=== PATIENT | male | born 1945 | race Caucasian/White ===

== ENCOUNTER 2019-10-11 12:22 | Inpatient (IN) | payer MEDICARE, SELFPAY ==
--- NOTE | ~2019-10-11 | US_ITS ---
US right upper quadrant DATE: 10/11/2019 13:55 INDICATION: Elevated liver function tests TECHNIQUE: Real-time imaging of liver, pancreas, gallbladder areas COMPARISON: 08/04/2018 abdominal ultrasound complete examination FINDINGS: The pancreatic distal body and tail are obscured by bowel gas. The pancreatic head, neck an d proximal body appear normal. Hepatic steatosis. No hepatic space-occupying mass lesion is evident. Normal hepatic portal venous fl ow direction. No gallstones or gallbladder wall thickening or abnormal pericholecystic fluid collection. Negative s onographic Stout's sign. The common bile duct measures 3 mm, normal. IMPRESSION: No significant abnormality Reviewed, dictated and finalized at [facility] Reviewed, dictated and finalized at [facility]. IMPRESSION: No significant abnormality
--- NOTE | ~2019-10-11 | CT_ITS ---
EXAMINATION: CT brain wo con DATE: 10/11/2019 13:38 INDICATION: Dizziness TECHNIQUE: Computed tomography (CT) of the head was performed without intravenous contrast. The mA wa s adjusted according to patient size. Iterative reconstruction technique was employed. Exam dose: 68 1.00 mGy-cm total exam DLP. COMPARISON: 11/05/2018 CT brain FINDINGS: No intracranial mass lesion or hemorrhage or evidence of cerebrovascular accident. Bilateral vertebral artery and carotid siphon internal carotid artery calcifications. There is mild n onspecific diminished attenuation of the cerebral white matter, likely due to chronic small vessel is chemic changes. No intracranial mass lesion or hemorrhage or cerebrovascular accident, midline shift or mass effect i s detected. No subdural or epidural hematoma. The orbits are unremarkable. No fracture or bone destruction of the cranial vault. The paranasal sinuses and mastoid air cells are normally developed and aerated. IMPRESSION: Cerebral atherosclerosis and chronic small vessel ischemic changes of the cerebral white matter No acute intracranial finding Reviewed, dictated and finalized at [facility] Reviewed, dictated and finalized at [facility].
--- NOTE | ~2019-10-11 | XR_ITS ---
XR chest 2V DATE: 10/11/2019 13:44 INDICATION: Paresis. Difficulty walking. TECHNIQUE: AP and lateral views COMPARISON: 08/01/2018 AP and lateral chest FINDINGS: Normal heart size. No hilar or mediastinal enlargement. No pulmonary infiltrate or consolidation, pleural effusion or pulmonary vascular congestion or pneumo thorax. Reverse left glenohumeral shoulder arthroplasty. Diffuse osteopenia. 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 Old healed fracture deformity of the mid right clavicular shaft. Scoliosis and degenerative spurring of the thoracic spine. There is anterior wedging and loss of heig ht of multiple thoracic vertebral bodies with associated thoracic kyphosis. IMPRESSION: No active cardiopulmonary disease Reviewed, dictated and finalized at [facility].
[2019-10-11 12:26] VITALS: BP 120/66; PULSE 108; RESP 18; TEMP 36.3; O2SAT 98
--- NOTE | 2019-10-11 12:33 | ECG_ITS ---
Measurements Intervals English Rate: 100 P: 51 RI: 159 QRS: 269 QRSD: 138 T: 31 QT: 369 QTc: 477 Interpretive Statements SINUS TACHYCARDIA VENTRICULAR PREMATURE COMPLEXES RIGHT AXIS DEVIATION RIGHT BUNDLE BRANCH BLOCK CANNOT RULE OUT SEPTAL INFARCT, AGE INDETERMINATE BASELINE ARTIFACT- I, II, AVR, AVL ABNORMAL ECG Electronically Signed On 10-11-2019 16:36:31 CDT by Mao Callejas D.O.
[2019-10-11 12:55] LABS: Basophils Percent Auto 0.3 % (0.2-1.2); Eosinophils Percent Auto 0.3 % (0-4.4); Hematocrit 42.6 % (42.0-52.0); Hemoglobin 14.3 g/dL (14.0-18.0); Immature Granulocyte Absolute 0.07 K/mm3 (0.00-0.031); Immature Granulocyte Percent A 0.5 % (0-0.5); Lymphocytes Absolute Auto 1.67 K/mm3 (0.9-3.2); Lymphocytes Percent Auto 12.3 % (18.3-44.2); Mean Corpuscular HGB Conc 33.6 g/dl (32-36); Mean Corpuscular Volume 89.3 fl (80-100); Mean Platelet Volume 10.3 fl (7.4-10.4); Monocytes Absolute Auto 1.4 K/mm3 (0.1-0.6); Monocytes Percent Auto 9.9 % (2.6-8.5); Neutrophils Absolute Auto 10.5 K/mm3 (1.3-6.7); Neutrophils Percent Auto 76.7 % (45.5-73.1); Platelet Count Result 211 k/mm3 (150-375); Red Blood Count 4.77 M/mm3 (4.6-6.20); Red Cell Distribution Width 14.2 % (11.5-14.5); White Blood Count 13.6 K/mm3 (4.5-10.0)
[2019-10-11 13:00] LABS: Add Urine Microscopic? YES; Appearance Urine Clear (Clear); Bilirubin Urine Negative (Negative); Blood Urine 2+ (Negative); Color Urine Yellow (Yellow); Glucose Urine UA Negative (Negative); Ketones Urine Negative (Negative); Leukocyte Esterase Ur Negative LEU/UL (Negative); Mucus Urine Rare /lpf; Nitrate Urine Negative (Negative); Protein Urine 2+ mg/dL (Negative); RBC Urine 0-2 /hpf (0-2); Specific Grav Ur 1.025 (1.001-1.035); Squamous Epithelial Cell Urine Rare /hpf (Few); Urobilinogen Urine Negative mg/dL (<2.0); WBC Urine 0-3 /hpf
--- NOTE | 2019-10-11 13:00 | ED.GENADULT ---
HPI - General Adult General Chief complaint: Weakness Stated complaint: Difficulty Walking Time Seen by Provider: 10/11/19 12:50 Source: RN notes reviewed History of Present Illness HPI narrative: Patient presents emergency department from home for gait instability. Patient states that starting yesterday he was having weakness in his bilateral legs. He states that with that weakness he just has general body aching throughout his body. He states that he had no trauma or injury. He denies any unilateral numbness or weakness he denies any recent illness denies any fevers or chills vision changes chest pain shortness of breath abdominal pain nausea vomiting or any other symptoms. He denies taking any new medications. Patient does state that yesterday he felt at times he perhaps had a hard time finding a word but has noted no diffuse difficulty speaking Related Data Allergies Allergy/AdvReac Type Severity Reaction Status Date / Time Sulfa (Sulfonamide Allergy Unknown Unknown Verified 10/11/19 12:46 Antibiotics) Review of Systems Review of Systems: Narrative: Gen.: Denies fevers or chills Eyes: Denies eye pain or visual change ENT: Denies congestion Respiratory: Denies shortness of breath or cough CV: Denies chest pain or palpitations GI: Denies abdominal pain nausea, emesis or diarrhea Musculoskeletal: Reports generalized muscle Neuro: Denies numbness, tingling, reports gait instability Skin: Denies rash Except as documented, all other systems reviewed and negative [facility] Past Medical History Medical History (Updated 10/11/19 @ 17:37 by Kyle Raphael DO) Hyperlipidemia Kidney stone Schizophrenia Family History Family History (Updated 03/11/18 @ 16:12 by DOCTOR UNKNOWN) Father Cerebrovascular accident Mother Family history of malignant neoplasm of bone Social History Social History Smoking status: Former smoker Smoking end date: 05/21/17 Alcohol intake: current Exam Narrative: Exam Narrative: APPEARANCE: No acute distress, nontoxic, resting in bed HEENT: Normocephalic, atraumatic, OMM, TMs clear bilaterally EYES: PERRL, EOMI NECK: Supple, nontender, full range of motion without pain, no meningismus RESPIRATORY: No respiratory distress, clear to auscultation bilaterally with no rhonchi wheezing or rales CARDIOVASCULAR: RRR s murmur ABDOMINAL: Soft, nontender, nondistended MUSCULOSKELETAL: Moves all extremities. No clubbing, cyanosis or edema. NEURO: A and O ?3, following commands, speech normal, cranial nerves II through XII grossly intact,muscle strength 5 out of 5 bilateral upper and lower extremities SKIN:: Warm, dry. Normal Color PSYCHIATRIC: Normal affect/mood Course Course Emergency Course: Reviewed old records. Patient with rhabdomyolysis and LFT elevated back in July 2018. I discussed with patient he states he has had no work-up since that time attempted to get patient up to ambulate and patient weak with ambulation unable to walk Discussed with [employer] Jenniffer for Dr. Watson presentation work-up. Agrees with admission at this time Discussed with patient and family results of workup and diagnosis. Discussed need for admission. Patient and family understand and agree to current treatment plan Vital Signs Vital signs: Vital Signs Temperature 97.4 F L 10/11/19 12:26 Pulse Rate 108 H 10/11/19 12:26 Respiratory Rate 18 10/11/19 12:26 Blood Pressure 120/66 10/11/19 12:26 Pulse Oximetry 98 10/11/19 12:26 Temperature 97.4 F L 10/11/19 12:26 Pulse Rate 94 10/11/19 16:40 Respiratory Rate 18 10/11/19 16:40 Blood Pressure 132/84 10/11/19 16:40 Pulse Oximetry 97 10/11/19 16:40 Medical Decision Making Vital Signs Vital Signs: Vital Signs Temperature 97.4 F L 10/11/19 12:26 Pulse Rate 108 H 10/11/19 12:26 Respiratory Rate 18 10/11/19 12:26 Blood Pressure 120/66 10/11/19 12:26 Pulse Oximetr
[2019-10-11 13:09] LABS: Alanine Aminotransferase 165 U/L (4-50); Albumin Level 4.3 g/dL (3.5-5.1); Alkaline Phosphatase 84 U/L (38-126); Aspartate Amino Transferase 623 U/L (17-59); Bilirubin,Total 1.3 mg/dL (0.2-1.3); Blood Urea Nitrogen 49 mg/dL (9-20); Calcium 8.9 mg/dL (8.4-10.2); Carbon Dioxide 22 mmol/L (22-30); Chloride 111 mmol/L (98-107); Estimated Glomerular Filt Rate 54; Glucose 116 mg/dL (75-110); Potassium 4.4 mmol/L (3.4-5.0); Sodium 141 mmol/L (137-145)
--- NOTE | 2019-10-11 14:20 | PC.NURSE ---
Pt unable to ambulate. EDP made aware.
[2019-10-11 14:32] LABS: Partial Thromboplastin Time 25.8 SECONDS (22.3-36.8); Prothrombin Time 12.4 Seconds (11.1-14.7)
[2019-10-11 14:41] LABS: Troponin I 0.017 ng/mL (0.000-0.034)
[2019-10-11 14:45] VITALS: BP 142/76; PULSE 84; RESP 18; O2SAT 97
[2019-10-11 15:30] LABS: Lactic Acid Reflex 1.1 mmol/L (0.7-2.1)
[2019-10-11 16:40] VITALS: BP 132/84; PULSE 94; RESP 18; O2SAT 97
[2019-10-11 16:54] LABS: Creatine Kinase > 16000 U/L (55-170)
[2019-10-11] MEDS: SODIUM CHLORIDE 0.9% IV 1,000 ML 999 ML IV CONT (17:21)
[2019-10-11 17:49] LABS: Ammonia < 9 umol/L (9-30)
--- NOTE | 2019-10-11 18:45 | ADMGEN ---
This patient, Tammie Harp, was admitted to Medical Room 246-. Patient/family oriented to hospital policies and general routines including ID bracelet, bed and alarms, visiting hours, pain management, procedures, bathroom and other care routines, personal items, smoking policy, room service/diet, and visiting hours. Valuables list has been completed. Information on how to activate the Rapid Response Team has been discussed. Patient/Family are encouraged to report perceived risks to care and to ask questions if they do not understand what they are told or what they should do.
[2019-10-11 19:00] VITALS: BP 119/79; PULSE 91; RESP 16; TEMP 36.4; O2SAT 100; BMI 29.4
[2019-10-11 20:00] VITALS: PULSE 89
[2019-10-11] MEDS: SODIUM CHLORIDE 0.9% IV 1,000 ML 150 ML IV CONT (21:24)
[2019-10-11 22:00] VITALS: BP 138/74; PULSE 86; RESP 18; TEMP 36; O2SAT 98
--- NOTE | 2019-10-11 23:39 | PM.IMHP ---
H&P: HPI History of Present Illness Chief complaint: Rhabdomyolysis, elevated, LFT's, Narrative: This is a pleasant 74 year old male who presented to the hospital with a complaint of generalized weakness and diffuse muscle pains. His legs seem to hurt more than any other part of his body. He denies any recent trauma or seizures. He also denies any long distance walking or exercise. He does agree that he has been laying around a lot but denies any falls or laying on the ground for any prolonged amount of time. The patient also denies any recent snake bites or electrocution. He was evaluated in the ER and found to have elevated LFTs and an elevated CK level of 16,000. The patient relates that he is known to have a fatty liver. He denies any alcohol use. On further questioning he denies any focal neurological symptoms, focal pain other than diffuse muscle soreness, nausea, vomiting, coughing, shortness of breath, abdominal pain, dysuria, hematuria, diarrhea or rectal bleeding. The patient denies any new medications. Gastroenterology has been consulted by ER provider and the patient has been started on IV fluids. He reports ambulatory dysfunction. Review of Systems Review of Systems: All systems reviewed & are unremarkable except as noted in HPI and below PMFSH Past Medical History Medical History Hyperlipidemia Kidney stone Proximal muscle weakness Schizophrenia Surgical History Surgical History History of left shoulder replacement Family History Family History Father Cerebrovascular accident Mother Family history of malignant neoplasm of bone Social History Social History Smoking status: Never smoker Smoking end date: 05/21/17 Alcohol intake: current Meds Home Medications and Allergies Home Medications Medication Instructions Recorded Confirmed Type nabumetone 500 mg tablet 500 mg PO BID #60 tablet 05/09/19 10/11/19 Rx pregabalin 50 mg capsule 50 mg PO BID #60 cap 05/09/19 10/11/19 Rx quetiapine 300 mg tablet 300 mg PO .QHS #90 tablet 05/09/19 10/11/19 Rx citalopram 20 mg PO DAILY 10/11/19 10/11/19 History finasteride 5 mg PO DAILY 10/11/19 10/11/19 History simvastatin 40 mg PO QPM 10/11/19 10/11/19 History temazepam [Restoril] 30 mg PO HS 10/11/19 10/11/19 History tizanidine [Zanaflex] 4 mg PO TID PRN 10/11/19 10/11/19 History Allergies Allergy/AdvReac Type Severity Reaction Status Date / Time Sulfa (Sulfonamide Allergy Unknown Unknown Verified 10/11/19 12:46 Antibiotics) Vital Signs Vital Signs - 24 hr 10/11/19 12:26 10/11/19 14:45 10/11/19 16:40 Temperature 36.3 C L Pulse Rate 108 H 84 94 Respiratory Rate 18 18 18 Blood Pressure 120/66 142/76 H 132/84 Pulse Oximetry 98 97 97 10/11/19 19:00 10/11/19 20:00 10/11/19 22:00 Temperature 36.4 C 36.0 C L Pulse Rate 91 89 86 Respiratory Rate 16 18 Blood Pressure 119/79 138/74 Pulse Oximetry 100 98 Exam Const: General: cooperative, no acute distress, alert and awake Nutritional Appearance: well nourished Orientation/consciousness: patient oriented x3 HENMT: Head: normal to inspection General nose exam: Normal external nose present Face and sinus: normal facial exam Mouth: Yes Normal oral and palatal mucosa present and Yes oropharynx normal Eyes: Pupils: Equal, round and reactive pupils present EOM: EOMs intact bilaterally Neck: Neck: supple and no JVD Thyroid: thyroid normal Lymphatic: lymphadenopathy not noted Resp: Effort & Inspection: normal respiratory effort Auscultation: clear to auscultation bilaterally Cardio: Rate: regular rate Rhythm: regular rhythm Heart sounds: no murmurs GI: Inspection: normal to inspection Auscultation: normal bowel sounds Skin: General skin exam: normal color
[2019-10-12] VITALS: PULSE 82
[2019-10-12] MEDS: polyethylene glycoL 3350 17 GM POWD.PACK PO ×2 (00:05→10:15)
[2019-10-12 04:00] VITALS: PULSE 82
[2019-10-12] MEDS: SODIUM CHLORIDE 0.9% IV 1,000 ML 150 ML IV CONT ×3 (04:13→22:40)
[2019-10-12 05:24] LABS: Basophils Absolute Auto 0.1 K/mm3 (0.0-0.1); Basophils Percent Auto 0.4 % (0.2-1.2); Eosinophils Absolute Auto 0.2 K/mm3 (0-0.3); Eosinophils Percent Auto 1.4 % (0-4.4); Hematocrit 38.2 % (42.0-52.0); Hemoglobin 12.6 g/dL (14.0-18.0); Immature Granulocyte Absolute 0.04 K/mm3 (0.00-0.031); Immature Granulocyte Percent A 0.3 % (0-0.5); Lymphocytes Absolute Auto 1.84 K/mm3 (0.9-3.2); Mean Platelet Volume 10.6 fl (7.4-10.4); Monocytes Absolute Auto 1.1 K/mm3 (0.1-0.6); Monocytes Percent Auto 9.3 % (2.6-8.5); Neutrophils Absolute Auto 8.4 K/mm3 (1.3-6.7); Neutrophils Percent Auto 72.6 % (45.5-73.1); Platelet Count Result 182 k/mm3 (150-375); Red Cell Distribution Width 14.5 % (11.5-14.5); White Blood Count 11.5 K/mm3 (4.5-10.0)
[2019-10-12 05:40] LABS: Alanine Aminotransferase 128 U/L (4-50); Albumin Level 3.3 g/dL (3.5-5.1); Alkaline Phosphatase 67 U/L (38-126); Aspartate Amino Transferase 347 U/L (17-59); Blood Urea Nitrogen 38 mg/dL (9-20); Carbon Dioxide 25 mmol/L (22-30); Chloride 112 mmol/L (98-107); Estimated CRCL calculation 49 ml/min; Estimated Glomerular Filt Rate > 60; Glucose 95 mg/dL (75-110); Potassium 3.9 mmol/L (3.4-5.0); Sodium 139 mmol/L (137-145)
[2019-10-12 06:00] VITALS: BP 112/64; PULSE 81; RESP 18; TEMP 36.1; O2SAT 95
[2019-10-12 06:33] LABS: Creatine Kinase 6776 U/L (55-170)
[2019-10-12 08:00] VITALS: PULSE 92
--- NOTE | 2019-10-12 09:50 | PM.IMPN ---
Progress Note: A&P Assessment and Plan (1) Rhabdomyolysis: Qualifiers: Rhabdomyolysis type: non-traumatic Qualified Code(s): M62.82 - Rhabdomyolysis Code(s): M62.82 - Rhabdomyolysis Status: Acute Assessment and Plan: The patient has a hx of rhabdomyolysis in 07/2018 and 02/2016. He had no hx of trauma, toxin exposures, or prolonged immobility. He reports he has not consumed alcohol recently. I suspect this may be drug induced as he is on multiple medications which can cause this including temazepam, seroquel, and simvastatin which are on hold at this time. CK was elevated 16,000 and is now 6776 today. His myalgias and generalized weakness are improving. Contine IV fluids HOLD temazepam, seroquel, simvastatin Continue to monitor CK and electrolytes. Will check TSH. (2) Elevated liver enzymes: Code(s): R74.8 - Abnormal levels of other serum enzymes Status: Acute Assessment and Plan: LFTs were AST 623, ALT 165, and ALP 84 at admission. LFTs are trending down with AST 347, ALT 128, and ALP 67 on labs today (10/11). I suspect that this is due to his rhabdomyolysis/potential ADR from temazepam, seroquel, and simvastatin. RUQ US revealed hepatic steatosis with no hepatic space-occupying mass lesion, normal hepatic portal venous flow direction, and no evidence of gallbladder disease. He has a hx of alcohol use but reports he has not consumed alcohol in the past month. GI is on board and further recommendations are greatly appreciated Hold temazepam, seroquel and simvastatin Continue to monitor (3) Gait instability: Code(s): R26.81 - Unsteadiness on feet Status: Acute Assessment and Plan: He reported difficulty ambulating yesterday due to his generalized weakness and calf discomfort. He does believe this is improving. I suspect that this is due his rhabdomyolysis. PT/OT have been consulted and input is greatly appreciated Continue to monitor (4) Schizophrenia: Qualifiers: Schizophrenia type: unspecified Qualified Code(s): F20.9 - Schizophrenia, unspecified Code(s): F20.9 - Schizophrenia, unspecified Status: Chronic Assessment and Plan: Stable. Hold seroquel for now as this can cause rhabdomyolysis and LFT elevation Continue to monitor (5) Hyperlipidemia: Qualifiers: Hyperlipidemia type: unspecified Qualified Code(s): E78.5 - Hyperlipidemia, unspecified Code(s): E78.5 - Hyperlipidemia, unspecified Status: Chronic Assessment and Plan: Hold Simvastatin as this may be the cause of his elevated LFTs and rhabdomyolysis Will hold at discharge with instructions to follow-up with his PCP (6) DVT prophylaxis: Code(s): Z29.9 - Encounter for prophylactic measures, unspecified Status: Acute Assessment and Plan: Continue lovenox SQ. Time Spent With Patient Time with patient: 15 - 25 minutes Subjective Date/time seen: 10/12/19 09:50 Interval history: Mr. Harp is a 74 y.o. male who is seen in follow-up for rhabdomyolysis. He reported feeling generalized muscle aches, particularly in his calves, prior to admission. He denies any recent trauma or prolonged period on the ground. He denies excessive exercise. He has a hx of rhabdomyolysis in 07/2018 and 02/2016 on review of prior records. Today, he reports that his calf discomfort has improved. He has not tried to ambulate yet. He denies chest pain and shortness of breath. He reports that he fees constipated and has not had a bowel movement since 10/10/19. He reports a hx of constipation and does use a bowel regimen at home. He is requesting miralax. He denies nausea and vomiting. He reports very mild abdominal discomfort with his constipation. He denies dizziness, lightheadedness, and focal weakness. He is voiding without difficulty and his appetite is good. Review of Systems Review of Systems: All s
[2019-10-12] MEDS: CITALOPRAM HYDROBROMIDE 20 MG TABLET PO (10:05)
[2019-10-12] MEDS: ENOXAPARIN 40 MG/0.4 ML SYRINGE SUB-Q (10:05)
[2019-10-12] MEDS: FINASTERIDE 5 MG TABLET PO (10:05)
[2019-10-12] MEDS: DOCUSATE SODIUM 100 MG CAPSULE PO ×2 (10:05→20:42)
--- NOTE | 2019-10-12 13:09 | WPDGICN ---
Assessment and Plan Assessment and plan (1) Rhabdomyolysis: Qualifiers: Rhabdomyolysis type: non-traumatic Qualified Code(s): M62.82 - Rhabdomyolysis Code(s): M62.82 - Rhabdomyolysis Status: Acute Assessment and Plan: he is here with proximal muscle weakness and found to have rhabdomyolysis but also similar abnormal blood work 07/2018. This is not liver related (transaminases elevated most likely from underlying rhabdomyolysis) he had negative hepatitis panel, abdominal ultrasound, inr and platelets. differential diagnosis could be meds- discontinue statin but given chronicity of abnormal blood work need to rule out other conditions (polyomyositis, etc)- will get blood work (sasha, esr, anti-anaid, tsh, aldolase, ANESTHESIOLOGY MEDICAL DOCTOR, etc) probably will need EMG with evaluation by neuromuscular specialist no need of further liver work up for now (he also has fatty liver but unlikely to explain symptoms)- can repeat liver enzymes when normal CPK to reassess (2) Elevated liver enzymes: Code(s): R74.8 - Abnormal levels of other serum enzymes Status: Acute (3) Proximal muscle weakness: Code(s): M62.81 - Muscle weakness (generalized) Status: Acute Assessment and Plan: with elevated cpk, monitor (4) Gait instability: Code(s): R26.81 - Unsteadiness on feet Status: Acute GI Consult Note Consult date/time: 10/12/19 13:09 Reason for consult: elevated liver enzymes HPI: Tammie Harp is a 74 year old male here with new onset of generalized weakness and diffuse muscle pain started just few days ago with more discomfort in his legs with subsequent gait instability. He denies any recent trauma, seizures, exercise or use of recent meds however he uses statin. He came to the ER and found to have elevated LFTs (ast 600, alt 150) and an elevated CK level of 16,000 but also noted similar abnormal blood work 07/2018 (elevated CK). He is admitted to the floor, abdominal utrasound was unremarkable other than fatty liver. Normal lactic acid, platelets, inr, bili, creatinine. Weakness is better today. Denies abdominal pain or nausea. Review of Systems Constitutional: Constitutional: Reports body ache(s), Denies headache(s) and Reports weakness Eyes: Eyes: Denies blurry vision ENT: Reports Normal hearing present, Denies headache(s) and Denies neck pain Cardiovascular: Cardiovascular: Denies chest pain and Denies dyspnea Respiratory: Respiratory: Denies dyspnea Gastrointestinal: Gastrointestinal: Reports no additional gastrointestinal complaints Genitourinary: Genitourinary: Denies dysuria Musculoskeletal: Musculoskeletal: Reports muscle weakness Integumentary/Breasts: Skin/Breast: Denies dry skin Neurologic: Reports Normal hearing present, Denies headache(s) and Denies weakness Psychiatric: Psychiatric: Denies anxiety Endocrine: Endocrine: Denies change in body appearance Hematologic/Lymphatic: Hematologic/Lymphatic: Denies easy bleeding Allergic/Immunologic: Allergic/Immunologic: Denies urticaria PMFSH Past Medical History Medical History Hyperlipidemia Kidney stone Schizophrenia Surgical History Surgical History History of left shoulder replacement Family History Family History Father Cerebrovascular accident Mother Family history of malignant neoplasm of bone Social History Social History Smoking status: Never smoker Smoking end date: 05/21/17 Alcohol intake: current Meds Home Medications and Allergies Home Medications Medication Instructions Recorded Confirmed Type nabumetone 500 mg tablet 500 mg PO BID #60 tablet 05/09/19 10/11/19 Rx pregabalin 50 mg capsule 50 mg PO BID #60 cap 05/09/19 10/11/19 Rx quetiapine 300 mg tablet 300 mg PO .QH
[2019-10-12 14:00] VITALS: BP 114/76; PULSE 87; RESP 16; TEMP 36.6; O2SAT 99
[2019-10-12 22:00] VITALS: BP 119/65; PULSE 82; RESP 16; TEMP 36.6; O2SAT 97
[2019-10-13 00:10] VITALS: BP 125/84
[2019-10-13 06:00] VITALS: BP 124/73; PULSE 91; RESP 16; TEMP 36.7; O2SAT 97
[2019-10-13] MEDS: SODIUM CHLORIDE 0.9% IV 1,000 ML 150 ML IV CONT (07:00)
[2019-10-13 07:50] LABS: Hematocrit 38.5 % (42.0-52.0); Hemoglobin 12.6 g/dL (14.0-18.0); Mean Corpuscular HGB Conc 32.7 g/dl (32-36); Mean Corpuscular Hemoglobin 30.1 pg (26-34); Mean Corpuscular Volume 91.9 fl (80-100); Mean Platelet Volume 10.8 fl (7.4-10.4); Platelet Count Result 173 k/mm3 (150-375); Red Blood Count 4.19 M/mm3 (4.6-6.20); Red Cell Distribution Width 13.9 % (11.5-14.5); White Blood Count 9.6 K/mm3 (4.5-10.0)
[2019-10-13 08:13] LABS: Erythrocyte Sedimentation Rate 21 mm/hr (0-20)
[2019-10-13 08:30] LABS: Alanine Aminotransferase 125 U/L (4-50); Albumin Level 3.2 g/dL (3.5-5.1); Alkaline Phosphatase 70 U/L (38-126); Aspartate Amino Transferase 212 U/L (17-59); Bilirubin,Total 0.7 mg/dL (0.2-1.3); Blood Urea Nitrogen 22 mg/dL (9-20); Carbon Dioxide 24 mmol/L (22-30); Chloride 110 mmol/L (98-107); Creatine Kinase 2478 U/L (55-170); Estimated CRCL calculation 59 ml/min; Estimated Glomerular Filt Rate > 60; Glucose 94 mg/dL (75-110); Magnesium 2.1 mg/dL (1.6-2.3); Phosphorus 2.7 mg/dL (2.5-4.5); Sodium 137 mmol/L (137-145)
[2019-10-13] MEDS: polyethylene glycoL 3350 17 GM POWD.PACK PO (09:28)
[2019-10-13] MEDS: DOCUSATE SODIUM 100 MG CAPSULE PO ×2 (09:28→22:03)
[2019-10-13] MEDS: CITALOPRAM HYDROBROMIDE 20 MG TABLET PO (09:28)
[2019-10-13] MEDS: ENOXAPARIN 40 MG/0.4 ML SYRINGE SUB-Q (09:28)
[2019-10-13] MEDS: FINASTERIDE 5 MG TABLET PO (09:28)
--- NOTE | 2019-10-13 11:26 | PM.IMPN ---
Progress Note: A&P Assessment and Plan (1) Rhabdomyolysis: Qualifiers: Rhabdomyolysis type: non-traumatic Qualified Code(s): M62.82 - Rhabdomyolysis Code(s): M62.82 - Rhabdomyolysis Status: Acute Assessment and Plan: The patient has a hx of rhabdomyolysis in 07/2018 and 02/2016. He had no hx of trauma, toxin exposures, or prolonged immobility. He reports he has not consumed alcohol recently. I suspect this may be drug induced as he is on multiple medications which can cause this including temazepam, seroquel, and simvastatin which are on hold at this time. CK was elevated 16,000 and continues to trend down at 2,478 today. TSH was WNL. Additional workup for other etiologies including ASA, ESR, anti-anaid, aldolase, UNDERGROUND ELECTRICIAN are pending. Contine IV fluids Hold seroquel, simvastatin, and nambumetone Await further workup for other etiologies of rhabdomyolysis, GI recommendations greatly appreciated Continue to monitor CK and electrolytes (2) Elevated liver enzymes: Code(s): R74.8 - Abnormal levels of other serum enzymes Status: Acute Assessment and Plan: LFTs were AST 623, ALT 165, and ALP 84 at admission. LFTs are trending down with AST 212, ALT 125, and ALP 70 on labs 10/12 (10/11). I suspect that this is due to his rhabdomyolysis/potential ADR from temazepam, seroquel, and simvastatin. RUQ US revealed hepatic steatosis with no hepatic space-occupying mass lesion, normal hepatic portal venous flow direction, and no evidence of gallbladder disease. He has a hx of alcohol use but reports he has not consumed alcohol in the past month. He also reports a hx of fatty liver disease. GI is on board and further recommendations are greatly appreciated Hold simvastatin and seroquel. Will resume temazepam as he is having difficulty sleeping and is requesting this. Continue to monitor (3) Gait instability: Code(s): R26.81 - Unsteadiness on feet Status: Acute Assessment and Plan: He reports he was able to walk with PT/OT without significant weakness or pain today. PT/OT have been consulted and input is greatly appreciated Continue to monitor (4) Schizophrenia: Qualifiers: Schizophrenia type: unspecified Qualified Code(s): F20.9 - Schizophrenia, unspecified Code(s): F20.9 - Schizophrenia, unspecified Status: Chronic Assessment and Plan: Stable. Hold seroquel for now as this can cause rhabdomyolysis and LFT elevation Continue to monitor (5) Hyperlipidemia: Qualifiers: Hyperlipidemia type: unspecified Qualified Code(s): E78.5 - Hyperlipidemia, unspecified Code(s): E78.5 - Hyperlipidemia, unspecified Status: Chronic Assessment and Plan: Hold Simvastatin as this may be the cause of his elevated LFTs and rhabdomyolysis Will hold at discharge with instructions to follow-up with his PCP (6) DVT prophylaxis: Code(s): Z29.9 - Encounter for prophylactic measures, unspecified Status: Acute Assessment and Plan: Continue lovenox SQ. Subjective Date/time seen: 10/13/19 11:26 Interval history: Mr. Harp is a 74 y.o. male who is seen in follow-up for rabdomyolysis. He reports that his myalgias continue to improve. He reports chronic low back discomfort as his nambumetone is on hold and he did not sleep very well since his temazepam is on hold due to transaminitis. He is tolerating his diet well. He reports a bowel movement today and has no complaints of constipation or diarrhea. He ambulated with PT and reports that his lower extremity discomfort is much better. He denies chest pain, shortness of breath, palpitations, nausea, vomiting, and adbominal pain. Review of Systems Review of Systems: All systems reviewed & are unremarkable except as noted in HPI and below Exam Narrative: Exam Narrative: General: Cooperative, well-developed and well-nourished 74
[2019-10-13 13:37] VITALS: BP 141/76; PULSE 82; RESP 18; TEMP 36.1; O2SAT 98
[2019-10-13] MEDS: SODIUM CHLORIDE 0.9% IV 1,000 ML 100 ML IV CONT (14:10)
[2019-10-13] MEDS: PREGABALIN 50 MG CAPSULE PO (16:27)
[2019-10-13 21:59] VITALS: BP 139/73; PULSE 93; RESP 16; TEMP 36.3; O2SAT 97
[2019-10-13] MEDS: TEMAZEPAM 15 MG CAPSULE 30 MG PO (22:02)
[2019-10-14] MEDS: SODIUM CHLORIDE 0.9% IV 1,000 ML 100 ML IV CONT ×2 (00:51→11:05)
[2019-10-14 05:24] LABS: Hematocrit 40.8 % (42.0-52.0); Hemoglobin 13.1 g/dL (14.0-18.0); Mean Corpuscular HGB Conc 32.1 g/dl (32-36); Mean Corpuscular Hemoglobin 29.7 pg (26-34); Mean Corpuscular Volume 92.5 fl (80-100); Mean Platelet Volume 10.7 fl (7.4-10.4); Platelet Count Result 188 k/mm3 (150-375); Red Blood Count 4.41 M/mm3 (4.6-6.20); Red Cell Distribution Width 13.8 % (11.5-14.5); White Blood Count 8.6 K/mm3 (4.5-10.0)
[2019-10-14 05:36] LABS: Alanine Aminotransferase 111 U/L (4-50); Albumin Level 3.4 g/dL (3.5-5.1); Alkaline Phosphatase 70 U/L (38-126); Aspartate Amino Transferase 132 U/L (17-59); Bilirubin,Total 0.4 mg/dL (0.2-1.3); Blood Urea Nitrogen 18 mg/dL (9-20); Calcium 8.2 mg/dL (8.4-10.2); Carbon Dioxide 29 mmol/L (22-30); Chloride 107 mmol/L (98-107); Creatine Kinase 975 U/L (55-170); Estimated CRCL calculation 59 ml/min; Estimated Glomerular Filt Rate > 60; Glucose 92 mg/dL (75-110); Potassium 4.3 mmol/L (3.4-5.0); Sodium 138 mmol/L (137-145)
[2019-10-14 05:57] VITALS: BP 134/76; PULSE 76; RESP 16; TEMP 36.2; O2SAT 95
[2019-10-14] MEDS: CITALOPRAM HYDROBROMIDE 20 MG TABLET PO (08:24)
[2019-10-14] MEDS: DOCUSATE SODIUM 100 MG CAPSULE PO ×2 (08:24→20:17)
[2019-10-14] MEDS: polyethylene glycoL 3350 17 GM POWD.PACK PO (08:25)
[2019-10-14] MEDS: PREGABALIN 50 MG CAPSULE PO ×2 (08:25→17:45)
[2019-10-14] MEDS: ENOXAPARIN 40 MG/0.4 ML SYRINGE SUB-Q (08:25)
[2019-10-14] MEDS: FINASTERIDE 5 MG TABLET PO (08:25)
[2019-10-14] MEDS: ACETAMINOPHEN 325 MG TABLET 650 MG PO (08:33)
[2019-10-14 13:39] VITALS: BP 141/88; PULSE 80; RESP 18; TEMP 36.2; O2SAT 99
--- NOTE | 2019-10-14 15:50 | PCOTNOTE ---
The OT treatment was unable to be completed on 10/14/2019. Will continue plan of care tomorrow 10/15/2019.
--- NOTE | 2019-10-14 16:27 | PM.IMPN ---
Progress Note: A&P Assessment and Plan (1) Rhabdomyolysis: Qualifiers: Rhabdomyolysis type: non-traumatic Qualified Code(s): M62.82 - Rhabdomyolysis Code(s): M62.82 - Rhabdomyolysis Status: Acute Assessment and Plan: The patient has a hx of rhabdomyolysis in 07/2018 and 02/2016. He had no hx of trauma, toxin exposures, or prolonged immobility. He reports he has not consumed alcohol recently. I suspect this may be drug induced as he is on multiple medications which can cause this including temazepam, seroquel, and simvastatin which are on hold at this time. CK was elevated 16,000 and continues to trend down at 975 today. TSH was WNL. Urine output is good. Additional workup for other etiologies including ANKIT, anti-anaid, aldolase, [employer] are pending. GI is on board and input is appreciated Continue IV fluids Hold seroquel, simvastatin, and nambumetone Await further workup for other etiologies of rhabdomyolysis which are pending. Continue to monitor CK and electrolytes (2) Elevated liver enzymes: Code(s): R74.8 - Abnormal levels of other serum enzymes Status: Acute Assessment and Plan: LFTs were elevated at admission, possibly due to underlying rhabdomyolysis. RUQ US revealed hepatic steatosis with no hepatic space-occupying mass lesion, normal hepatic portal venous flow direction, and no evidence of gallbladder disease. He has a hx of alcohol use but reports he has not consumed alcohol in the past month. He also reports a hx of fatty liver disease. INR and platelets are wnl. Continue to hold simvastatin and seroquel Continue to monitor (3) Gait instability: Code(s): R26.81 - Unsteadiness on feet Status: Acute Assessment and Plan: Patient presented with muscle weakness and low back pain which appear to have both modestly improved. Continue PT/OT. Input is appreciated for discharge planning as patient lives alone. Patient will benefit from home health Continue to monitor. (4) Schizophrenia: Qualifiers: Schizophrenia type: unspecified Qualified Code(s): F20.9 - Schizophrenia, unspecified Code(s): F20.9 - Schizophrenia, unspecified Status: Chronic Assessment and Plan: Stable. Hold seroquel for now as this can cause rhabdomyolysis and LFT elevation Continue to monitor (5) Hyperlipidemia: Qualifiers: Hyperlipidemia type: unspecified Qualified Code(s): E78.5 - Hyperlipidemia, unspecified Code(s): E78.5 - Hyperlipidemia, unspecified Status: Chronic Assessment and Plan: Hold Simvastatin as this may be the cause of his elevated LFTs as well as his cause of his rhabdomyolysis. Subjective Date/time seen: 10/14/19 16:27 Interval history: Date of service: 10/14/2019 Mr. Harp reports he is feeling well today. He complains of low back pain which he believes is exacerbated by laying in bed. He has been ambulating around the room and working with physical therapy. He has a headache today but notes it has improved from yesterday. He endorses mild abdominal discomfort. He denies N/V/D. He had a regular bowel movement this morning and he is urinating regularly. He denies cough, chest pain, dizziness, lightheadedness, or palpitations. His appetite is good. He slept well last night. Review of Systems Review of Systems: Narrative: A 12 point review of systems was reviewed with pertinent positives and negatives as per HPI. Exam Narrative: Exam Narrative: Mr. Harp is examined alone today. He is a well nourised 74 year old male who is sitting in a chair by the bedside. He appears comfortable and is in NARD. HR 76, BP 134/76, RR 16, T 97.2, 95% on room air Neuro: awake, alert and oriented x4, speech clear, no focal neuro deficits noted, strength 5/5 throughout HEENMT: normocephalic, atraumatic, EOMI, sclerae anicteric, moist oral mucosa, normal oropharynx Neck: supple
[2019-10-14 22:00] VITALS: BP 124/69; PULSE 78; RESP 20; TEMP 37.3; O2SAT 97
[2019-10-14] MEDS: TEMAZEPAM 15 MG CAPSULE 30 MG PO (22:08)
[2019-10-14] MEDS: SODIUM CHLORIDE 0.9% IV 1,000 ML 80 ML IV CONT (22:08)
[2019-10-15 05:47] LABS: Alanine Aminotransferase 90 U/L (4-50); Albumin Level 3.1 g/dL (3.5-5.1); Alkaline Phosphatase 66 U/L (38-126); Aspartate Amino Transferase 74 U/L (17-59); Bilirubin,Total 0.3 mg/dL (0.2-1.3); Blood Urea Nitrogen 20 mg/dL (9-20); Calcium 8.3 mg/dL (8.4-10.2); Carbon Dioxide 29 mmol/L (22-30); Chloride 106 mmol/L (98-107); Creatine Kinase 455 U/L (55-170); Estimated CRCL calculation 59 ml/min; Estimated Glomerular Filt Rate > 60; Glucose 92 mg/dL (75-110); Potassium 4.1 mmol/L (3.4-5.0); Sodium 139 mmol/L (137-145)
[2019-10-15 06:00] VITALS: BP 110/55; PULSE 61; RESP 18; TEMP 36.1; O2SAT 98
[2019-10-15 06:01] LABS: Basophils Absolute Auto 0.1 K/mm3 (0.0-0.1); Basophils Percent Auto 0.7 % (0.2-1.2); Eosinophils Absolute Auto 0.4 K/mm3 (0-0.3); Eosinophils Percent Auto 4.9 % (0-4.4); Hematocrit 39.2 % (42.0-52.0); Hemoglobin 12.6 g/dL (14.0-18.0); Immature Granulocyte Absolute 0.15 K/mm3 (0.00-0.031); Immature Granulocyte Percent A 1.7 % (0-0.5); Lymphocytes Absolute Auto 1.84 K/mm3 (0.9-3.2); Lymphocytes Percent Auto 20.6 % (18.3-44.2); Mean Corpuscular HGB Conc 32.1 g/dl (32-36); Mean Corpuscular Hemoglobin 29.8 pg (26-34); Mean Corpuscular Volume 92.7 fl (80-100); Mean Platelet Volume 10.9 fl (7.4-10.4); Monocytes Absolute Auto 0.9 K/mm3 (0.1-0.6); Monocytes Percent Auto 9.8 % (2.6-8.5); Neutrophils Absolute Auto 5.6 K/mm3 (1.3-6.7); Neutrophils Percent Auto 62.3 % (45.5-73.1); Platelet Count Result 191 k/mm3 (150-375); Red Blood Count 4.23 M/mm3 (4.6-6.20)
[2019-10-15] MEDS: SODIUM CHLORIDE 0.9% IV 1,000 ML 80 ML IV CONT (08:46)
[2019-10-15] MEDS: ENOXAPARIN 40 MG/0.4 ML SYRINGE SUB-Q (08:46)
[2019-10-15] MEDS: DOCUSATE SODIUM 100 MG CAPSULE PO (08:46)
[2019-10-15] MEDS: FINASTERIDE 5 MG TABLET PO (08:47)
[2019-10-15] MEDS: CITALOPRAM HYDROBROMIDE 20 MG TABLET PO (08:47)
[2019-10-15] MEDS: PREGABALIN 50 MG CAPSULE PO (08:51)
[2019-10-15] MEDS: polyethylene glycoL 3350 17 GM POWD.PACK PO (09:08)
[2019-10-15] MEDS: ACETAMINOPHEN 325 MG TABLET 650 MG PO (09:08)
[2019-10-15 11:48] LABS: Aldolase 16.5 U/L (<=8.1)
--- NOTE | 2019-10-15 15:51 | PC.NURSE ---
Addendum entered by Tanya Nicolas RN 10/15/19 15:59: talita contacted desk stating pt can follow up in four weeks Original Note: Notified Joshua of discharge. no further follow up suggested.
--- NOTE | 2019-10-15 16:36 | PM.DS ---
DS: Admitting Diagnosis Admitting Diagnosis Admitting Diagnosis: Rhabdomyolysis DS: Discharge Diagnosis Discharge Diagnosis (1) Rhabdomyolysis: Qualifiers: Rhabdomyolysis type: non-traumatic Qualified Code(s): M62.82 - Rhabdomyolysis Code(s): M62.82 - Rhabdomyolysis Status: Acute Assessment and Plan: Patient presented with muscle weakness. He had no hx of trauma, toxin exposures, or prolonged immobility. He reports he has not consumed alcohol recently. He reports a distant history of 2 prior episodes of rhabdomyolysis. I suspect this episode was most likely due to statin use. His CK improved from 6776 to 455 at time of discharge. He will hold statin until follow-up with PCP. (2) Elevated liver enzymes: Code(s): R74.8 - Abnormal levels of other serum enzymes Status: Acute Assessment and Plan: LFTs were elevated at admission, most likely due to underlying rhabdomyolysis. RUQ US revealed hepatic steatosis with no hepatic space-occupying mass lesion, normal hepatic portal venous flow direction, and no evidence of gallbladder disease. His statin drug was held. Liver enzymes had significantly improved at time of discharge. (3) Gait instability: Code(s): R26.81 - Unsteadiness on feet Status: Acute Assessment and Plan: Patient presented with muscle weakness causing instability. I suspect this muscle weakness was related to his rhabdomyolysis. He was evaluated by PT and OT. He declined home health. He will continue using a walker at home. He was educated on fall precautions. (4) Schizophrenia: Qualifiers: Schizophrenia type: unspecified Qualified Code(s): F20.9 - Schizophrenia, unspecified Code(s): F20.9 - Schizophrenia, unspecified Status: Chronic Assessment and Plan: He will continue taking Seroquel. (5) Hyperlipidemia: Qualifiers: Hyperlipidemia type: unspecified Qualified Code(s): E78.5 - Hyperlipidemia, unspecified Code(s): E78.5 - Hyperlipidemia, unspecified Status: Chronic Assessment and Plan: His simvastatin will be held until follow-up with PCP given rhabdomyolysis. He may benefit from monthly Repatha injections in order to avoid further statin use to prevent rhabdomyolysis from reccurring. DS: Summary Hospital Course Reason for hospitalization: Weakness Hospital Course: Date of Admission: 10/11/2019 Date of discharge: 10/15/2019 Tammie Harp is a 74-year-old male who lives at home alone with a past medical history significant for hyperlipidemia and schizophrenia who presented to the emergency department on 10/11/2019 with complaints of muscle weakness which was most significant in his legs. He had no fall, injury, or trauma. At presentation, WBC 13.6, Hgb 14.3, Hct 42.6, platelets 211, Na 141, K 4.4, Cl 111, CO2 22, BUN 49, Cr 1.3, glucose 116, troponin 0.017, CK >48545, AST 623, ALT 165, ALP 84, lactic 1.1. He was admitted to the hospitalist service for treatment of rhabdomyolysis on 10/11/2019. He was seen in consultation by software writer Dr. Suh. He was given IV fluids. His CK trended down well. His rhabdomyolysis was felt to be related to statin use. Dr. Suh completed a workup for additional etiologies including polymyositis or additional rheumatologic disorders. ESR was very mildly elevated at 21. Aldolase was elevated at 16.5, suggesting muscle damage most likely related to rhabdomyolysis. ANKIT, anti Emmy, and CASE MAKER are still pending at time of discharge. He will need to follow-up as an outpatient to review these labs. He will discontinue his statin until he is seen by his primary care provider. Given his weakness, he was evaluated by PT and OT. He was able to ambulate well without additional assistance. He did qualify for home health, however he denied. He will continue using his walker at home and we discussed fall precautions. He has a
[2019-10-16 09:55] LABS: JO 1 Antibody <1.0; RNP Antibodies <1.0
== END 2019-10-15 16:38 | disposition home or self-care (01) | DRG 558 ==
LOC: ANHED 17:42 → ANH2MED 18:15
PROVIDERS: Family Medicine; Internal Medicine Gastroenterology; Physician Assistant; Admitting Provider Internal Medicine; Emergency Provider Emergency Medicine; PCP Student in an Organized Health Care Education/Training Program; Visit Provider Physician Assistant
DX: M62.82 Rhabdomyolysis (principal); T46.6X5A Adverse effect of antihyperlipidemic and antiarteriosclerotic drugs, initial encounter; R74.8 Abnormal levels of other serum enzymes; R26.81 Unsteadiness on feet; F20.9 Schizophrenia, unspecified; E78.5 Hyperlipidemia, unspecified; Z79.899 Other long term (current) drug therapy; Z87.442 Personal history of urinary calculi; Z88.2 Allergy status to sulfonamides
CPT/HCPCS: 36415; 70450; 71046; 76705; 80053; 81001; 82085; 82140; 82550; 83605; 83735; 84100; 84443; 84484; 85025; 85027; 85610; 85652; 85730; 86038; 86235; 87040; 93005; 97110; 97116; 97161; 97165; 97530; 97535; 99285; A9270; J1650; J7030

== ENCOUNTER 2019-10-31 09:11 | Inpatient (IN) | payer MEDICARE, SELFPAY ==
[2019-10-31] VITALS (12 sets, daily range): BP systolic 105–166; BP diastolic 70–124; PULSE 87–116; RESP 15–24; TEMP 36.3–36.5; O2SAT 94–99
--- NOTE | ~2019-10-31 | XR_ITS ---
EXAMINATION: XR abdomen obstructive series DATE: 10/31/2019 11:06 INDICATION: Abdominal pain. Constipation. TECHNIQUE: Upright and supine views of the abdomen on 3 radiographs were obtained. COMPARISON: Abdomen radiographs 03/10/2016, CT abdomen 02/06/2006 FINDINGS: There are multiple dilated loops of small bowel. There is a large volume of stool in the co kamryn. No free intraperitoneal gas. There is a chronic calcified mass in left abdomen that is part of t he left kidney on the prior CT, likely benign. There is a total left hip arthroplasty. IMPRESSION: 1. Dilated small bowel, consistent with adynamic ileus versus bowel obstruction. Reviewed, dictated and finalized at location E. IMPRESSION: 1. Dilated small bowel, consistent with adynamic ileus versus bowel obstruction .
--- NOTE | ~2019-10-31 | XR_ITS ---
EXAMINATION: XR abdomen NG/feed tube rechec DATE: 10/31/2019 17:06 INDICATION: Nasogastric tube placement. TECHNIQUE: An upright view of the abdomen was obtained. COMPARISON: Abdomen single view at 3:00 PM FINDINGS: The lower abdomen and right lateral aspect of the abdomen are excluded. There are no visual ized dilated loops of bowel. The nasogastric tube tip is in the stomach. IMPRESSION: 1. Nasogastric tube tip in the stomach. Reviewed, dictated and finalized at location A.
--- NOTE | ~2019-10-31 | XR_ITS ---
EXAMINATION: XR small bowel follow through DATE: 11/01/2019 15:43 INDICATION: Small bowel stricture. TECHNIQUE: Oral contrast was administered, and a time course of radiographs of the abdomen was obtain ed. Fluoroscopy of the small bowel was performed. Fluoroscopy exposure time was 2.3 minutes. The tota l number of images was 20. COMPARISON: CT abdomen and pelvis 10/31/2019 FINDINGS: There are mildly dilated loops of small bowel in left abdomen. Transit time from the stomach to proxi mal colon was approximately 30 minutes. IMPRESSION: 1. Mildly dilated small bowel in left abdomen. The focal transition point seen by CT was not identifi ed. Consider CT enterography with intravenous contrast either now or in a few weeks to exclude malign keven. Reviewed, dictated and finalized at location A. IMPRESSION: 1. Mildly dilated small bowel in left abdomen. The focal transition point seen by CT was not identified. Consider CT enterography with intravenous contrast ei ther now or in a few weeks to exclude malignancy.
--- NOTE | ~2019-10-31 | CT_ITS ---
EXAMINATION: CT abdomen pelvis w con DATE: 10/31/2019 12:57 INDICATION: Abdominal pain. TECHNIQUE: Computed tomography (CT) of the abdomen and pelvis was performed with 100 mL Omnipaque 350 intravenous contrast. Automated exposure control and iterative reconstruction technique were employe d. The dose-length product was 788.52 mGy-cm. COMPARISON: None. FINDINGS: The visualized portions of the lung bases demonstrate mild atelectasis. No pleural effusion . The heart size is normal. There are coronary artery calcifications. No pericardial effusion. The li boris, gallbladder, spleen, pancreas, and adrenal glands are normal. There are cysts in right kidney me asuring up to 2.0 cm. There is severe atrophy of left kidney. There are parenchymal calcifications in left kidney. There is a chronic 2.6 cm rim calcified mass in left kidney, likely benign. The rectum is distended by stool. There is diverticulosis of the colon without evidence of diverticulitis. There is a large volume of stool in the colon. The appendix is not visualized. There is dilated small carlene l in left abdomen with a focal transition point where there is wall thickening. There are no patholog ically enlarged lymph nodes. There is no free intraperitoneal fluid. There is a left hip arthroplasty . There is severe thoracolumbar spondylosis. There is chronic height loss of multiple thoracic verteb ral bodies. IMPRESSION: 1. Dilated proximal small bowel with focal transition point at a site of bowel wall thickening suspic ious for primary adenocarcinoma. A small bowel series is recommended to determine if this finding is persistent. 2. Large volume of stool in the colon with rectal distention. Reviewed, dictated and finalized at location E. IMPRESSION: 1. Dilated proximal small bowel with focal transition point at a site of bowel wall thickening suspicious for primary adenocarcinoma. A small bowel series is recommended to determine if this finding is persistent. 2. Large volume of stool in the colon with rectal distention.
--- NOTE | ~2019-10-31 | XR_ITS ---
EXAMINATION: XR abdomen obstructive series DATE: 11/01/2019 08:58 INDICATION: Partial bowel obstruction versus ileus TECHNIQUE: Upright and supine views of the abdomen were obtained. COMPARISON: 10/31/2019 FINDINGS: The nasogastric tube in the stomach. There is a moderate volume of colonic stool. No defini tely dilated loops of bowel or free intraperitoneal gas are identified. There are changes of left tot al hip arthroplasty. IMPRESSION: 1. No definitely dilated loops of bowel. Constipation. Reviewed, dictated and finalized at location A.
--- NOTE | ~2019-10-31 | XR_ITS ---
XR chest 2V DATE: 10/31/2019 11:06 INDICATION: Shortness of breath TECHNIQUE: AP and lateral views COMPARISON: 10/11/2019 AP and lateral views FINDINGS: Normal heart size. No hilar or mediastinal enlargement. No pulmonary infiltrate or consol idation. No pleural effusion. No pulmonary consolidation. No pneumothorax. Status post left glenohumeral joint replacement. Scoliosis and degenerative change. IMPRESSION: No active cardiopulmonary disease Reviewed, dictated and finalized at location A.
--- NOTE | ~2019-10-31 | XR_ITS ---
XR abdomen NG/feed tube insert DATE: 10/31/2019 15:22 INDICATION: Nasogastric tube insertion TECHNIQUE: Portable upright AP view on 10/31/2019 at 1516 hours COMPARISON: None FINDINGS: A nasogastric tube is present in the gastric fundus, the proximal side port situated at won roximately the diaphragmatic hiatus. Advancement of the tube is recommended. The upper abdomen is included in the examination. There is a prominent amount of fecal material in th e colon. No apparent bowel obstruction is suggested on this limited incomplete view. Heart size appears normal. No consolidation in the lower lung zones or pleural effusion is evident. IMPRESSION: NG tube in gastric fundus; advancement is recommended Reviewed, dictated and finalized at Location A. Reviewed, dictated and finalized at location A.
[2019-10-31 10:34] LABS: Basophils Absolute Auto 0.1 K/mm3 (0.0-0.1); Basophils Percent Auto 0.7 % (0.2-1.2); Eosinophils Absolute Auto 0.2 K/mm3 (0-0.3); Eosinophils Percent Auto 2.8 % (0-4.4); Hematocrit 44.4 % (42.0-52.0); Hemoglobin 14.4 g/dL (14.0-18.0); Immature Granulocyte Absolute 0.04 K/mm3 (0.00-0.031); Immature Granulocyte Percent A 0.6 % (0-0.5); Lymphocytes Absolute Auto 1.16 K/mm3 (0.9-3.2); Lymphocytes Percent Auto 16.4 % (18.3-44.2); Mean Corpuscular HGB Conc 32.4 g/dl (32-36); Mean Corpuscular Hemoglobin 30.2 pg (26-34); Mean Corpuscular Volume 93.1 fl (80-100); Mean Platelet Volume 10.6 fl (7.4-10.4); Monocytes Absolute Auto 0.7 K/mm3 (0.1-0.6); Monocytes Percent Auto 9.3 % (2.6-8.5); Neutrophils Percent Auto 70.2 % (45.5-73.1); Platelet Count Result 253 k/mm3 (150-375); Red Blood Count 4.77 M/mm3 (4.6-6.20); Red Cell Distribution Width 14.9 % (11.5-14.5); White Blood Count 7.1 K/mm3 (4.5-10.0)
--- NOTE | 2019-10-31 10:40 | ECG_ITS ---
Measurements Intervals [place] Rate: 94 P: 26 WA: 163 QRS: -86 QRSD: 141 T: 30 QT: 379 QTc: 476 Interpretive Statements SINUS RHYTHM VENTRICULAR PREMATURE COMPLEX RIGHT BUNDLE BRANCH BLOCK LEFT ANTERIOR FASCICULAR BLOCK ABNORMAL ECG Electronically Signed On 10-31-2019 11:38:36 CDT by Mao Callejas D.O.
--- NOTE | 2019-10-31 10:41 | ED.LOWEXIN ---
HPI - Extremity Injury (Lower) General Chief Complaint: Extremity Injury, Lower <Isabelle Santiago PA-C - Last Filed: 10/31/19 16:29> Stated Complaint: difficulty standing/walking <Isabelle Santiago PA-C - Last Filed: 10/31/19 16:29> Time Seen by Provider: 10/31/19 10:12 <Isabelle Santiago PA-C - Last Filed: 10/31/19 16:29> Source: patient <DIANA Vera Last Filed: 10/31/19 16:29> Mode of arrival: ambulatory <DIANA Vera Last Filed: 10/31/19 16:29> Limitations: no limitations <Isabelle Santiago PA-C - Last Filed: 10/31/19 16:29> History of Present Illness HPI Narrative: This is a 74-year-old male that presents the emergency department for weakness since this morning. Reports he was recently admitted here for rhabdomyolysis. Reports he saw his primary last week and was feeling better, but did still feel a little weak. Reports this morning he noticed increasing weakness and pain in his legs. Also reports low back pain. Reports a dry mouth. Reports he has been trying to drink a lot of water. Reports he has not restarted his statin. Reports he accidentally took his night meds this morning, which includes temazepam. Also reports some shortness of breath. Also reports lower abdominal pain and constipation. Denies fever, cough, chest pain, vomiting, hematochezia, dysuria or hematuria. <Isabelle Santiago PA-C - Last Filed: 10/31/19 16:29> Related Data Home Medications: Home Medications Medication Instructions Recorded Confirmed citalopram 20 mg PO DAILY 10/11/19 10/31/19 finasteride 5 mg PO DAILY 10/11/19 10/31/19 temazepam [Restoril] 30 mg PO HS 10/11/19 10/31/19 tizanidine [Zanaflex] 4 mg PO TID PRN 10/11/19 10/31/19 duloxetine 60 mg PO DAILY 10/31/19 10/31/19 olanzapine 20 mg PO DAILY 10/31/19 10/31/19 omega [id number]-fish oil [Fish Oil] 1 cap PO DAILY 10/31/19 10/31/19 <Isabelle Santiago PA-C - Last Filed: 10/31/19 16:29> Allergies/Adverse Reactions: Allergies Allergy/AdvReac Type Severity Reaction Status Date / Time Sulfa (Sulfonamide Allergy Unknown Unknown Verified 10/31/19 09:21 Antibiotics) <Isabelle Santiago PA-C - Last Filed: 10/31/19 16:29> Review of Systems Review of Systems: Narrative: CONSTITUTIONAL: Denies fever ENT: Denies rhinorrhea, congestion, sore throat CARDIOVASCULAR: Denies chest pain, or edema. RESPIRATORY: Reports dyspnea. Denies cough GASTROINTESTINAL: Reports abdominal pain. Denies nausea, vomiting, or diarrhea. GENITOURINARY: Denies dysuria or hematuria. MUSCULOSKELETAL: Reports back pain, joint pain, and myalgia. NEUROLOGIC: Reports weakness. Denies numbness <Isabelle Santiago PA-C - Last Filed: 10/31/19 16:29> All systems reviewed & are unremarkable except as noted in HPI and below <Isabelle Santiago PA-C - Last Filed: 10/31/19 16:29> PMFSH Family History Family History: Family History (Updated 10/31/19 @ 17:46 by Neisha Hooks RN) Father Cerebrovascular accident Mother Family history of malignant neoplasm of bone Pancreatic cancer Diabetes mellitus Sibling Diabetes mellitus <DIANA Vera Last Filed: 10/31/19 16:29> Social History Social History: Social History Smoking status: Former smoker Smoking end date: 05/21/17 Additional smoking assessment comments: Off an on smoker Alcohol intake: former Substance use: never Spiritual care concerns: No <Isabelle Santiago PA-C - Last Filed: 10/31/19 16:29> Exam Narrative: Exam Narrative: GENERAL: Elderly, well-nourished, and in no acute distress. HEAD: Normocephalic, atraumatic. EYES: EOMI. ENT: Nares clear, no rhinorrhea or epistaxis. Mucous membranes dry. Oropharynx without tonsillar hypertrophy exudate or other lesions. Bilateral TMs pearly ackerman non-bulging NECK: Supple. No adenopathy or masses. CHEST: Clear to auscultation. No respiratory distress. No whe
[2019-10-31 10:44] LABS: INR 0.9
[2019-10-31 10:45] LABS: Lactic Acid Reflex 1.5 mmol/L (0.7-2.1); Partial Thromboplastin Time 28.3 SECONDS (22.3-36.8)
[2019-10-31 10:46] LABS: Alanine Aminotransferase 27 U/L (4-50); Alkaline Phosphatase 80 U/L (38-126); Aspartate Amino Transferase 26 U/L (17-59); Bilirubin,Total 0.2 mg/dL (0.2-1.3); Blood Urea Nitrogen 23 mg/dL (9-20); Calcium 8.9 mg/dL (8.4-10.2); Carbon Dioxide 25 mmol/L (22-30); Chloride 106 mmol/L (98-107); Creatine Kinase 131 U/L (55-170); Estimated CRCL calculation 67 ml/min; Estimated Glomerular Filt Rate > 60; Glucose 112 mg/dL (75-110); Potassium 4.7 mmol/L (3.4-5.0); Sodium 138 mmol/L (137-145)
[2019-10-31] MEDS: SODIUM CHLORIDE 0.9% IV 1,000 ML 999 ML IV CONT (11:10)
[2019-10-31 11:20] LABS: Add Urine Microscopic? YES; Appearance Urine Clear (Clear); Bilirubin Urine Negative (Negative); Blood Urine Negative (Negative); Color Urine Straw (Yellow); Glucose Urine UA Negative (Negative); Ketones Urine Negative (Negative); Leukocyte Esterase Ur Negative LEU/UL (Negative); Nitrate Urine Negative (Negative); Protein Urine Negative (Negative); Specific Grav Ur 1.011 (1.001-1.035); Urobilinogen Urine Negative mg/dL (<2.0); WBC Urine 0-3 /hpf
--- NOTE | 2019-10-31 16:27 | PM.CNGS ---
Assessment and Plan Assessment and plan (1) SBO (small bowel obstruction): Onset Date: ~10/31/19 Code(s): K56.609 - Unspecified intestinal obstruction, unspecified as to partial versus complete obstruction Status: Acute Assessment and Plan: Will use small bowel decompression with NG tube. Bowel rest. Will plan for upper GI small-bowel follow-through tomorrow to look at this area of narrowing in the small bowel. Patient knows that if this also shows a stricture we may need to schedule surgery for next Sunday to consider a laparoscopic approach for a evaluation of the small bowel in that area possible small-bowel resection. (2) Proximal muscle weakness: Onset Date: ~09/2019 Code(s): M62.81 - Muscle weakness (generalized) Status: Acute Assessment and Plan: I believe this coincided with his Rabdomyolysis. (3) Schizophrenia: Onset Date: Unknown Qualifiers: Schizophrenia type: unspecified Qualified Code(s): F20.9 - Schizophrenia, unspecified Code(s): F20.9 - Schizophrenia, unspecified Status: Chronic Assessment and Plan: Continue home meds after NG decompression is completed Will looked medicine to substitute something IV for these until he can take p.o. meds again. (4) Hyperlipidemia: Onset Date: Unknown Qualifiers: Hyperlipidemia type: unspecified Qualified Code(s): E78.5 - Hyperlipidemia, unspecified Code(s): E78.5 - Hyperlipidemia, unspecified Status: Chronic Assessment and Plan: Patient currently off his simvastatin because its association with possibly causing the rectum I lysis noted about 2 weeks ago. He can have this repeated sores labs as an outpatient and further decisions can be made regarding that. He has seen his primary in the interim and they were starting him on fish oil but we will hold this this since this can be a blood thinner we may need to do surgery. History of Present Illness Consult details Consult date: 10/31/19 Reason for consult: abdominal pain Requesting physician: Louann Carroll MD Narrative: This is a 74-year-old male that presented the emergency department for weakness since this morning. Reports he was recently admitted here for rhabdomyolysis. Reports he saw his primary last week and was feeling better, but did still feel a little weak. Reports this morning he noticed increasing weakness and pain in his legs. Also reports low back pain and lower to mid abdominal pain. Reports a dry mouth. Reports he has been trying to drink a lot of water. Reports he has not restarted his statin. Reports he accidentally took his night meds this morning, which includes temazepam. Also reports some shortness of breath. Also reports lower abdominal pain and constipation. (He states he does take Metamucil daily). Denies fever, cough, chest pain, vomiting, hematochezia, dysuria or hematuria for workup in the emergency room today reveals return what appears to be possibly a narrow area in the small bowel leading to partial or complete small-bowel obstruction bout mid small bowel with a transition points situating the left lower abdomen adjacent to the descending colon. I reviewed his CT scan with the radiologist and he believes that we may get more information by doing small-bowel follow-through. Patient also has significant constipation with lots of stool in his colon so will try to do some fleets enemas and get this cleaned out 1st. NG tube is placed to help prevent aspiration. Review of Systems Constitutional: Constitutional: Reports no additional constitutional complaints and Denies frequent falls Eyes: Eyes: Reports as per HPI ENT: Reports Normal hearing present, Denies dizziness and Reports other (Mucous membranes moist.) Cardiovascular: Cardiovascular: Denies chest pain, Denies palpitations, Denies dyspnea and Denies dyspnea on exertion Respiratory: Respiratory: Denies hem
--- NOTE | 2019-10-31 16:58 | PC.NURSE ---
Pt pulled out first NG tube. Placed another NG tube at bedside.
--- NOTE | 2019-10-31 17:28 | PC.NURSE ---
This patient, Tammie Harp, was admitted to Medical Room 341-01. Patient/family oriented to hospital policies and general routines including ID bracelet, bed and alarms, visiting hours, pain management, procedures, bathroom and other care routines, personal items, smoking policy, room service/diet, and visiting hours. Valuables list has been completed. Information on how to activate the Rapid Response Team has been discussed. Patient/Family are encouraged to report perceived risks to care and to ask questions if they do not understand what they are told or what they should do.
[2019-10-31] MEDS: SODIUM CHLORIDE 0.9% IV 1,000 ML 125 ML IV CONT (17:57)
[2019-10-31] MEDS: PHENOL/SOD PHENO SPRAY CHERRY (*BKC) 1 SPRAY MUCOUS MEM (20:36)
--- NOTE | 2019-10-31 21:30 | PM.IMHP ---
H&P: HPI History of Present Illness Chief complaint: Multiple complaints. Narrative: Tammie Harp is a 74-year-old male with schizoaffective disorder, depression, anxiety, benign prostatic hyperplasia, and hypercholesterolemia who presented to the emergency department earlier today with multiple complaints. He is known to the hospitalist service as he has been admitted to a several times with rhabdomyolysis, most recently in August 2019, and it sounds as though it has been blamed on statins. Since that hospitalization, he feels as though he has never gained back the strength in his legs and he still feels a bit weak. He has also had issues with constipation since that hospitalization, and notes that his bowel movements are typically ?small balls of hard stool.? He has tried to take stool softeners and Metamucil without much benefit and he has thus been having diffuse abdominal discomfort that he believes is due to the constipation. Additionally he reports some low back discomfort, but goes on to say that is not unusual for him. A CT of the abdomen and pelvis showed findings of small-bowel obstruction and possible wall thickening of the colon and he is being admitted in this setting. At the time my evaluation, he complains of being anxious and he is worried as he will not be able to take his psychiatric medications as he is NPO and has an NG in place. NG tube is noted to have dark red/brown output and with further questioning he denies GERD and indigestion symptoms and also denies traumatic placement of the NG tube. He has not lost weight, in fact has gained about 5 or 6 pound since his most recent hospitalization which he thinks may be due to the IV fluids. There is no personal or family history of colon cancer. He has no history of inflammatory bowel disease or bowel obstruction. He denies nausea and vomiting. Of note, he was given a Fleet enema and was able to pass a ?medium amount of small, hard balls of stool.? Review of Systems Review of Systems: Narrative: Twelve systems were reviewed with pertinent positives and negatives as per HPI. No fever, chills, or sweats. He denies recent cold and flu symptoms. No chest pain. He does note mild shortness of breath which he attributes to abdominal bloating. No melena or hematochezia. No bowel or bladder incontinence. Denies saddle anesthesia. Except as documented, all other systems were reviewed and are negative. PMFSH Past Medical History Medical History (Updated 10/31/19 @ 23:56 by Nakita Mohan PA-C) Benign essential tremor Benign prostatic hyperplasia Congenital renal agenesis, unilateral Depression with anxiety Fibromyalgia Hypercholesterolemia Hyperlipidemia Kidney stone Osteoarthritis Peptic ulcer Proximal muscle weakness (~08/2019) Pulmonary hypertension Mild pulmonary hypertension noted on echocardiogram in July 2018 with an estimated peak RVSP of 35 to 40 millimeters of mercury. Rhabdomyolysis Hospitalized for such in February 2016, July 2018, and September 2019. Schizophrenia Tension headache Surgical History Surgical History (Updated 10/31/19 @ 23:54 by Nakita Mohan PA-C) History of arthroscopy of right knee (~2002) History of bilateral cataract extraction History of inguinal hernia repair History of left shoulder replacement History of tonsillectomy and adenoidectomy History of total left hip replacement (~2010) History of umbilical hernia repair History of vasectomy Family History Family History Father Cerebrovascular accident Mother Family history of malignant neoplasm of bone Pancreatic cancer Diabetes mellitus Sibling Diabetes mellitus Social History Social History (Updated 10/31/19 @ 23:52 by Nakita Mohan PA-C) Social History: Surrogate decision maker: Melina Guerrero, the patient's sister in [place]. Code status: Full code. Smoking status: Former smoker Smoking end date:
[2019-10-31] MEDS: LORAZEPAM INJ 2 MG/ML VIAL 0.5 MG IV PUSH (22:49)
[2019-10-31 23:58] LABS: Gastric Negative Control Negative; Gastric Positive Control Positive; Occult Blood Gastric Fluid Positive
[2019-11-01] MEDS: PANTOPRAZOLE SODIUM IV 40 MG VIAL IV PUSH ×3 (00:19→16:44)
[2019-11-01] MEDS: SODIUM CHLORIDE 0.9% IV 1,000 ML 125 ML IV CONT ×3 (02:35→21:18)
[2019-11-01 05:56] VITALS: BP 137/74; PULSE 79; RESP 16; TEMP 36.2; O2SAT 95
[2019-11-01 06:54] LABS: Basophils Percent Auto 0.5 % (0.2-1.2); Eosinophils Absolute Auto 0.1 K/mm3 (0-0.3); Eosinophils Percent Auto 1.8 % (0-4.4); Hemoglobin 13.3 g/dL (14.0-18.0); Immature Granulocyte Absolute 0.05 K/mm3 (0.00-0.031); Immature Granulocyte Percent A 0.6 % (0-0.5); Lactic Acid 0.8 mmol/L (0.7-2.1); Lymphocytes Absolute Auto 1.37 K/mm3 (0.9-3.2); Lymphocytes Percent Auto 17.7 % (18.3-44.2); Mean Corpuscular HGB Conc 31.7 g/dl (32-36); Mean Corpuscular Hemoglobin 29.7 pg (26-34); Mean Corpuscular Volume 93.8 fl (80-100); Mean Platelet Volume 10.4 fl (7.4-10.4); Monocytes Absolute Auto 0.7 K/mm3 (0.1-0.6); Monocytes Percent Auto 8.4 % (2.6-8.5); Neutrophils Absolute Auto 5.5 K/mm3 (1.3-6.7); Platelet Count Result 231 k/mm3 (150-375); Red Blood Count 4.48 M/mm3 (4.6-6.20); Red Cell Distribution Width 14.7 % (11.5-14.5); White Blood Count 7.7 K/mm3 (4.5-10.0)
[2019-11-01 06:57] LABS: Blood Urea Nitrogen 17 mg/dL (9-20); Calcium 8.3 mg/dL (8.4-10.2); Carbon Dioxide 29 mmol/L (22-30); Chloride 107 mmol/L (98-107); Estimated CRCL calculation 67 ml/min; Estimated Glomerular Filt Rate > 60; Glucose 111 mg/dL (75-110); Magnesium 2.2 mg/dL (1.6-2.3); Potassium 3.9 mmol/L (3.4-5.0); Sodium 139 mmol/L (137-145)
[2019-11-01 08:00] VITALS: PULSE 95; RESP 14; O2SAT 96
--- NOTE | 2019-11-01 10:12 | PM.IMPN ---
Progress Note: A&P Assessment and Plan (1) Small bowel obstruction: Code(s): K56.609 - Unspecified intestinal obstruction, unspecified as to partial versus complete obstruction Status: Acute Assessment and Plan: Patient reports he passed small, hard, balls of stool yesterday. NG tube has been placed for decompression. Gastric occult blood was positive. Dr. Jeronimo has been consulted and his recommendations are appreciated Plan for upper GI small-bowel follow-through today. Await results. Continue NG tube decompression and NPO diet Continue IV fluids (2) Lower extremity weakness: Code(s): R29.898 - Other symptoms and signs involving the musculoskeletal system Status: Acute Assessment and Plan: Patient notes he has had weakness since his hospitalization within the past month and a half for rhabdomyolysis. CK is normal. I believe some of his weakness is likely related to deconditioning. Will obtain PT and OT consult (3) Psychiatric illness: Code(s): F99 - Mental disorder, not otherwise specified Status: Acute Assessment and Plan: Patient has a history of depression, anxiety, and schizoaffective disorder. His home regimen of medications include citalopram, duloxetine, Zyprexa, and Seroquel His psychiatric medications are on hold as he is currently NPO. Continue IV lorazepam as needed. Consider IM Zyprexa if patient will remain NPO for extended amount of time. Will re-evaluate following results of small-bowel follow-through. (4) Benign prostatic hyperplasia: Code(s): N40.0 - Benign prostatic hyperplasia without lower urinary tract symptoms Status: Acute Assessment and Plan: Patient denies urinary symptoms at this time. Continue hold finasteride as he is NPO. Resume when clinically appropriate. Monitor closely for urinary retention. (5) Cerumen impaction: Qualifiers: Laterality: left Qualified Code(s): H61.22 - Impacted cerumen, left ear Code(s): H61.20 - Impacted cerumen, unspecified ear Status: Acute Assessment and Plan: Patient complains of otalgia in left ear. No hearing loss, dizziness, or tinnitus. On exam, patient has dry, flaky cerumen covering canal and TM is unable to be visualized. He reports he frequently uses Q-tips, which likely contributed. Begin Debrox drops Patient should avoid using Q-tips in the ear canal Continue to monitor Subjective Date/time seen: 11/01/19 10:12 Interval history: Date of service: 11/01/2019 Mr. Harp reports he is feeling well today. He complains of her symptoms. He also complains left ear pain and believes that he has wax stuck in his ear. He reports mild abdominal discomfort. He denies nausea, vomiting, fever, or chills. He had a bowel movement yesterday afternoon and reports he was passing small, hard balls of stool. He has not had a bowel movement yet today. He is NPO, but reports he is hungry and would like to eat as soon as possible. He complains of sore throat related to his NG tube. He denies cough, shortness of breath, or chest pain. He denies dizziness or lightheadedness. He reports his weakness has improved somewhat, and he was able to walk the downey this morning. He did not sleep very well last night. Review of Systems Review of Systems: Narrative: A 12 point review of systems was reviewed with pertinent positives and negatives as per HPI. Exam Narrative: Exam Narrative: Mr. Harp is examined alone today. He is a well-nourished 74-year-old male who is lying supine in bed. He appears comfortable and is in no acute respiratory distress. HR 79, BP 137/74, RR 16, T 97.2?, 95% on room air Neuro: awake, alert and oriented x4, speech clear, no focal neuro deficits noted HEENMT: normocephalic, atraumatic, EOMI, PERRL, sclerae anicteric, moist oral mucosa, left TM with dry, flaky cerumen and no visualization of TM, rig
[2019-11-01] MEDS: CARBAMIDE PEROXIDE 6.5% OT SOLN 15 ML BTL 5 DROP LEFT EAR ×2 (13:35→20:01)
[2019-11-01 14:00] VITALS: BP 102/78; PULSE 95; RESP 14; TEMP 36.7; O2SAT 96
--- NOTE | 2019-11-01 16:38 | PM.PNGS ---
Progress Note: A&P Assessment and Plan (1) Small bowel obstruction: Onset Date: ~10/31/19 Code(s): K56.609 - Unspecified intestinal obstruction, unspecified as to partial versus complete obstruction Status: Acute Assessment and Plan: this was the main reason for his admission. I just reviewed his small-bowel follow-through ordered after his NG fell out. say he could not demonstrate a definite narrowing or tumor in his small bowel on the left side which was suggested by CT. He suggest the patient have a elective CT enterography to prove definitely that there is not some type of narrowing or tumor in the mid small bowel. This could be done either Sunday or as an outpatient next week. Will see of the patient's feeling tomorrow. Patient has some element of obstipation but I suspect that the dye used for this test will help clear his colon. Have also had the nurse make him able to have p.r.n. fleets enema to help empty the rectum if it becomes somewhat stuck behind other hard stool. Will also check a stool for Hemoccult. (Patient states he has had a colonoscopy in the last 3 years and had only 1 polyp. (2) Psychiatric illness: Onset Date: Unknown Code(s): F99 - Mental disorder, not otherwise specified Status: Acute Assessment and Plan: On medications these can be renewed now that he is on liquids. (3) Rhabdomyolysis: Qualifiers: Rhabdomyolysis type: non-traumatic Qualified Code(s): M62.82 - Rhabdomyolysis Code(s): M62.82 - Rhabdomyolysis Status: Acute Assessment and Plan: He had this probably due to his statin medication 2 weeks ago. He has remained off of that medication for now. Will recheck a creatinine phosphokinase tomorrow. (4) Elevated liver enzymes: Code(s): R74.8 - Abnormal levels of other serum enzymes Status: Acute Assessment and Plan: Rechecking these tomorrow morning. (5) Schizophrenia: Onset Date: Unknown Qualifiers: Schizophrenia type: unspecified Qualified Code(s): F20.9 - Schizophrenia, unspecified Code(s): F20.9 - Schizophrenia, unspecified Status: Chronic (6) Benign prostatic hyperplasia: Onset Date: Unknown Code(s): N40.0 - Benign prostatic hyperplasia without lower urinary tract symptoms Status: Acute Assessment and Plan: Resume his home medication for this in the morning. Subjective Subjective Date/Time Seen: 11/01/19 16:38 Mr. Harp reports he is feeling well today. He complains of other symptoms. He complained to the hospitalist LUCI of left ear pain and believes that he has wax stuck in his ear. she had him start Dobrex drops and helped him with this. He reports mild abdominal discomfort. While walking today is NG tube fell out. He was not however having any significant abdominal symptoms. He denies nausea, vomiting, fever, or chills. He had a bowel movement yesterday afternoon after taking a fleets enema and reports he was passing small, hard balls of stool. He has not had a bowel movement yet today. He is NPO, but reports he is hungry and would like to eat as soon as possible. He complains of sore throat related to his NG tube. He denies cough, shortness of breath, or chest pain. He denies dizziness or lightheadedness. He reports his weakness has improved somewhat, and he was able to walk the downey this morning. He did not sleep very well last night. Review of Systems Constitutional: Constitutional: Reports no additional constitutional complaints ENT: Reports other (Mucous Membranes moist.) Cardiovascular: Cardiovascular: Denies dyspnea Respiratory: Respiratory: Denies pain on inspiration and Denies dyspnea Gastrointestinal: Gastrointestinal: Reports as per HPI and Reports no additional gastrointestinal complaints Musculoskeletal: Musculoskeletal: Reports other (No calf swelling or edema) Integumentar
[2019-11-01 18:25] LABS: IFOB Positive Control Positive; Immunochemical Fecal Occult Bl Negative (N)
[2019-11-01 20:02] VITALS: BP 103/54; PULSE 80; RESP 13; TEMP 36.8; O2SAT 95
[2019-11-02] MEDS: ACETAMINOPHEN 500 MG TABLET 1000 MG PO (04:52)
[2019-11-02] MEDS: SODIUM CHLORIDE 0.9% IV 1,000 ML 125 ML IV CONT ×2 (05:09→16:14)
[2019-11-02 06:07] VITALS: BP 124/75; PULSE 96; RESP 12; TEMP 36.6; O2SAT 98
[2019-11-02] MEDS: ACETAMINOPHEN 325 MG TABLET 650 MG PO (07:57)
[2019-11-02] MEDS: PANTOPRAZOLE SODIUM IV 40 MG VIAL IV PUSH ×2 (07:59→16:16)
[2019-11-02] MEDS: CARBAMIDE PEROXIDE 6.5% OT SOLN 15 ML BTL 5 DROP LEFT EAR (07:59)
[2019-11-02 08:00] VITALS: PULSE 96; RESP 12; O2SAT 98
[2019-11-02 09:31] LABS: Basophils Percent Auto 0.4 % (0.2-1.2); Eosinophils Absolute Auto 0.1 K/mm3 (0-0.3); Eosinophils Percent Auto 0.7 % (0-4.4); Hematocrit 41.4 % (42.0-52.0); Hemoglobin 13.1 g/dL (14.0-18.0); Immature Granulocyte Absolute 0.06 K/mm3 (0.00-0.031); Immature Granulocyte Percent A 0.8 % (0-0.5); Lymphocytes Absolute Auto 0.95 K/mm3 (0.9-3.2); Lymphocytes Percent Auto 12.5 % (18.3-44.2); Mean Corpuscular HGB Conc 31.6 g/dl (32-36); Mean Corpuscular Hemoglobin 29.9 pg (26-34); Mean Corpuscular Volume 94.5 fl (80-100); Mean Platelet Volume 10.5 fl (7.4-10.4); Monocytes Absolute Auto 0.4 K/mm3 (0.1-0.6); Monocytes Percent Auto 5.8 % (2.6-8.5); Neutrophils Absolute Auto 6.1 K/mm3 (1.3-6.7); Neutrophils Percent Auto 79.8 % (45.5-73.1); Platelet Count Result 229 k/mm3 (150-375); Red Blood Count 4.38 M/mm3 (4.6-6.20); Red Cell Distribution Width 14.5 % (11.5-14.5); White Blood Count 7.6 K/mm3 (4.5-10.0)
[2019-11-02 09:46] LABS: Creatine Kinase 98 U/L (55-170)
[2019-11-02 09:47] LABS: Alanine Aminotransferase 20 U/L (4-50); Albumin Level 3.5 g/dL (3.5-5.1); Alkaline Phosphatase 77 U/L (38-126); Aspartate Amino Transferase 20 U/L (17-59); Bilirubin,Total 0.7 mg/dL (0.2-1.3); Blood Urea Nitrogen 13 mg/dL (9-20); Calcium 8.3 mg/dL (8.4-10.2); Carbon Dioxide 26 mmol/L (22-30); Chloride 106 mmol/L (98-107); Estimated CRCL calculation 68 ml/min; Estimated Glomerular Filt Rate > 60; Glucose 174 mg/dL (75-110); Sodium 137 mmol/L (137-145)
[2019-11-02 14:00] VITALS: BP 133/71; PULSE 86; RESP 12; TEMP 36.8; O2SAT 98
--- NOTE | 2019-11-02 14:10 | PM.IMPN ---
Progress Note: A&P Assessment and Plan (1) Small bowel obstruction: Onset Date: ~10/31/19 Code(s): K56.609 - Unspecified intestinal obstruction, unspecified as to partial versus complete obstruction Status: Acute Assessment and Plan: Initial CT suggested possible narrowing or obstruction. Small-bowel follow-through performed yesterday does not demonstrate any definitive narrowing. Patient continues to pass small balls of stool, but reports they become softer. General surgery has been consulted and Dr. Jeronimo's recommendations are appreciated NG tube fell out and was discontinued on 11/01/2019 Continue clear liquid diet. Plan to advance diet once cleared by Dr. Jeronimo Plan for potential CT enterography tomorrow per Dr. Jeronimo's recommendations Discontinue IV fluids as patient is tolerating oral intake Continue Fleet enemas as needed (2) Lower extremity weakness: Code(s): R29.898 - Other symptoms and signs involving the musculoskeletal system Status: Acute Assessment and Plan: Patient notes he has had weakness since his hospitalization approximately 1.5 months ago for rhabdomyolysis, which was felt to be related to statin use. Statins have been on hold since that time. CK is normal. I believe some of his weakness is likely related to deconditioning. He has been doing well working with therapy. Continue PT and OT. (3) Psychiatric illness: Onset Date: Unknown Code(s): F99 - Mental disorder, not otherwise specified Status: Acute Assessment and Plan: Patient has a history of depression, anxiety, and schizoaffective disorder. His home regimen of medications include citalopram, duloxetine, Zyprexa, and Seroquel Resume his oral psychiatric medications as he is no longer NPO. (4) Benign prostatic hyperplasia: Onset Date: Unknown Code(s): N40.0 - Benign prostatic hyperplasia without lower urinary tract symptoms Status: Acute Assessment and Plan: Patient denies urinary symptoms at this time. He is urinating regularly. Resume his home finasteride as he is no longer NPO. (5) Cerumen impaction: Qualifiers: Laterality: left Qualified Code(s): H61.22 - Impacted cerumen, left ear Code(s): H61.20 - Impacted cerumen, unspecified ear Status: Acute Assessment and Plan: Patient complains of otalgia in left ear. No hearing loss, dizziness, or tinnitus. On exam, patient has dry, flaky cerumen covering canal and TM is unable to be visualized. He reports he frequently uses Q-tips, which likely contributed. Continue Debrox drops. Patient reports significant improvement. Patient should avoid using Q-tips in the ear canal Continue to monitor Subjective Date/time seen: 11/02/19 14:10 Interval history: Date of service: 11/02/2019 He reports he is feeling today. He had a bowel movement this. He continues to his several falls of stool, but he reports that have become softer. He denies any abdominal pain or cramping. He feels less bloated today. He has been tolerating his clear liquid diet well. He is requesting to advance his diet. He denies any nausea or vomiting. He denies shortness of breath, chest pain, or cough. He feels his muscle aches have improved. He is urinating regulary and denies urinary symptoms. He slept well last night. Review of Systems Review of Systems: Narrative: A 12 point review of systems was reviewed with pertinent positives and negatives as per HPI. Exam Narrative: Exam Narrative: Mr. Harp is examined alone today. He is a well-nourished 74-year-old male who is lying supine in bed. He appears comfortable and is in no acute respiratory distress. HR 96, BP 124/75, RR 12, T 97.8?, 98% on room air Neuro: awake, alert and oriented x4, speech clear, no focal neuro deficits noted HEENMT: normocephalic, atraumatic, EOMI, PERRL, sclerae anicteric, moist o
--- NOTE | 2019-11-02 16:45 | PC.NURSE ---
Patient with multiple walks to the bathroom with standy assistance.
--- NOTE | 2019-11-02 18:28 | PM.PNGS ---
Progress Note: A&P Assessment and Plan (1) Small bowel obstruction: Onset Date: ~10/31/19 Code(s): K56.609 - Unspecified intestinal obstruction, unspecified as to partial versus complete obstruction Status: Acute Assessment and Plan: This was the main reason for his admission. I reviewed his small-bowel follow-through ordered after his NG fell out yesterday mars with Dr. Duarte. He could not demonstrate a definite narrowing or tumor in his small bowel on the left side which was suggested by CT. He suggests the patient have a elective CT enterography to prove definitely that there is not some type of narrowing or tumor in the mid small bowel. This could be done either Sunday or as an outpatient next week. patient feeling well today. Will advance him to a soft diet and if well tolerated for supper he can go home tonight will set up this test as an outpatient. I put my orders in the discharge area of the chart. stool for Hemoccult Sent and reported negative today. (Patient states he has had a colonoscopy in the last 3 years and had only 1 polyp. (2) Psychiatric illness: Onset Date: Unknown Code(s): F99 - Mental disorder, not otherwise specified Status: Acute Assessment and Plan: On medications these can be renewed now that he is on liquids. (3) Rhabdomyolysis: Qualifiers: Rhabdomyolysis type: non-traumatic Qualified Code(s): M62.82 - Rhabdomyolysis Code(s): M62.82 - Rhabdomyolysis Status: Acute Assessment and Plan: He had this probably due to his statin medication 2 weeks ago. He has remained off of that medication for now. Will recheck a creatinine phosphokinase tomorrow. (4) Elevated liver enzymes: Code(s): R74.8 - Abnormal levels of other serum enzymes Status: Acute Assessment and Plan: Rechecking these tomorrow morning. (5) Schizophrenia: Onset Date: Unknown Qualifiers: Schizophrenia type: unspecified Qualified Code(s): F20.9 - Schizophrenia, unspecified Code(s): F20.9 - Schizophrenia, unspecified Status: Chronic (6) Benign prostatic hyperplasia: Onset Date: Unknown Code(s): N40.0 - Benign prostatic hyperplasia without lower urinary tract symptoms Status: Acute Assessment and Plan: Resume his home medication Additional Plan At this time will plan to do an outpatient CT enterography with p.o. oral contrast and IV contrast to recheck the small bowel in the area of concern on the recent CT Patient would like to go home and not wait and do this tomorrow morning (Sunday) I put my discharge orders/ Instructions in the chart. I instructed the patient to stay on soft heart healthy diet until after he has has the above test Patient is instructed to cut back to clear liquids if he begins having significant bloating or abdominal pain again. He can either call our office if during the weekday or C cup the emergency room after 8 hours of liquids if he starts vomiting or after the the problems. Patient to follow up with PCP Dr. Gracia sometime in the next few weeks. We will call him with the results of the above CT enterography. Time Spent With Patient Time with patient: 15 - 25 minutes Subjective Subjective Date/Time Seen: 11/02/19 18:28 patient feels well today. States he has had 3-4 bowel movements through the day. These have been semi solid. Does not have any abdominal pain now. Tolerating clear liquids well. Review of Systems Constitutional: Constitutional: Reports no additional constitutional complaints and Denies frequent falls Eyes: Eyes: Reports as per HPI ENT: Reports Normal hearing present, Denies dizziness and Reports other (Mucous Membranes moist.) Cardiovascular: Cardiovascular: Denies chest pain, Denies palpitations, Denies dyspnea and Denies dyspnea on exertion Respiratory: Respiratory: Denies hemoptysis, Denies pain on inspir
--- NOTE | 2019-11-02 19:09 | PM.DS ---
DS: Admitting Diagnosis Admitting Diagnosis Admitting Diagnosis: Unspecified intestinal obstruction, unspecified as to partial versus complete obstruction DS: Discharge Diagnosis Discharge Diagnosis (1) Small bowel obstruction: Onset Date: ~10/31/19 Code(s): K56.609 - Unspecified intestinal obstruction, unspecified as to partial versus complete obstruction Status: Acute Assessment and Plan: Patient presented with abdominal pain and constipation. Abdominal XR showed dilated small bowel. CT a/p suggested possible narrowing or obstruction. An NG tube was placed and patient was decompressed. Small-bowel follow-through performed on 11/01/19 did not demonstrate any definitive narrowing and contrast reached proximal colon in 30 minutes. He was seen in consultation by general surgery who recommends he obtain a CT enterography as an outpatient to definitively determine if there is possible narrowing or tumor in small bowel. Stool was hemoccult negative. His diet was advanced and he was tolerating soft, low-fiber diet. He will follow up with Dr. Jeronimo as an outpatient for results of CT enterography. He will start on a bowel regimen of Miralax and Colace daily. (2) Lower extremity weakness: Code(s): R29.898 - Other symptoms and signs involving the musculoskeletal system Status: Acute Assessment and Plan: He notes he has been weak since his hospitalization approximately 1.5 months ago for rhabdomyolysis, which was felt to be related to statin use. Statins have since been discontinued. CK was within normal limits. I believe some of his weakness is likely related to deconditioning. He was evaluated by PT and OT and determined to be at functional baseline. (3) Psychiatric illness: Onset Date: Unknown Code(s): F99 - Mental disorder, not otherwise specified Status: Acute Assessment and Plan: He has a history of depression, anxiety, and schizoaffective disorder. His home regimen of medications include citalopram, duloxetine, Zyprexa, and Seroquel, which were held temporarily as he was NPO. These were resumed and he will continue as an outpatient. (4) Benign prostatic hyperplasia: Onset Date: Unknown Code(s): N40.0 - Benign prostatic hyperplasia without lower urinary tract symptoms Status: Acute Assessment and Plan: Patient denied urinary symptoms. Finaseteride was resumed with advanced diet. He had no issues with urinary retention. (5) Cerumen impaction: Qualifiers: Laterality: left Qualified Code(s): H61.22 - Impacted cerumen, left ear Code(s): H61.20 - Impacted cerumen, unspecified ear Status: Acute Assessment and Plan: Patient complained of otalgia in left ear without hearing loss, dizziness, or tinnitus. On exam, patient had dry, flaky cerumen covering canal and TM was unable to be visualized. He reports he frequently uses Q-tips, which likely contributed. Otalgia improved with Debrox drops. Encouraged him to stop using Q-tips in the ear canal. DS: Summary Hospital Course Reason for hospitalization: Weakness Hospital Course: Date of admission: 10/31/2019 Date of discharge: 11/02/2019 Tammie Harp is a 74 year old male with a PMH significant for schizoaffective disorder, depression, anxiety, BPH, HLD, and recent hospitalization in August 2019 for rhabdomyolysis who presented to the emergency department on 10/31/2019 with several complaints. He felt weak in his legs and felt that he has not regained his strength from his previous hospitalization. He also noted abdominal pain and constipation, stating that he had been passing small balls of hard stool, with no relief with stool softeners or Metamucil. At presentation, his vitals were stable with mild tachycardia, WBC 7.1, Hgb 14.4, Hct 44.4, lactic 1.5, CK 131, CXR with no acute cardiopulmonary disease, abdominal X-ray with dilated small bowel, and CT a/p with
== END 2019-11-02 19:40 | disposition home or self-care (01) | DRG 390 ==
LOC: ANHED 15:33 → ANH3MED 15:48
PROVIDERS: Physician Assistant; Surgery; Admitting Provider Family Medicine; Emergency Provider General Practice; Visit Provider Internal Medicine
DX: K56.609 Unspecified intestinal obstruction, unspecified as to partial versus complete obstruction (principal); N40.0 Benign prostatic hyperplasia without lower urinary tract symptoms; H61.22 Impacted cerumen, left ear; R29.898 Other symptoms and signs involving the musculoskeletal system; F25.9 Schizoaffective disorder, unspecified; F41.8 Other specified anxiety disorders; E78.5 Hyperlipidemia, unspecified; M19.90 Unspecified osteoarthritis, unspecified site; I27.20 Pulmonary hypertension, unspecified; Z87.11 Personal history of peptic ulcer disease; Z98.42 Cataract extraction status, left eye; Z98.41 Cataract extraction status, right eye; Z96.612 Presence of left artificial shoulder joint; Z96.642 Presence of left artificial hip joint; Z87.891 Personal history of nicotine dependence
CPT/HCPCS: 36415; 71046; 74018; 74019; 74177; 74250; 80048; 80053; 81001; 82274; 82550; 83605; 83735; 83986; 85025; 85610; 85730; 93005; 96360; 97110; 97116; 97161; 97165; 99285; A9270; C9113; J0131; J2060; J7030; Q9967

== ENCOUNTER 2019-11-08 09:54 | Outpatient (CLI) | payer MEDICARE, SELFPAY ==
--- NOTE | ~2019-11-08 | CT_ITS ---
EXAMINATION: CT abdomen pelvis w con DATE: 11/08/2019 11:31 INDICATION: Malignant neoplasm of the small intestine. TECHNIQUE: Computed tomography (CT) of the abdomen and pelvis was performed with 100 mL Omnipaque-350 intravenous contrast. Automated exposure control and iterative reconstruction technique were employe d. The dose-length product was 901.92 mGy-cm. COMPARISON: CT abdomen and pelvis dated 10/31/[address] dated 05/19/2010 FINDINGS: Unchanged linear discoid atelectasis/scarring the bilateral lower lobes, right greater than left. 8 m m noncalcified subpleural right lower lobe granuloma along the dome of the diaphragm which is unchang ed since 05/19/2010. Heart size is normal. Atherosclerotic coronary artery calcium location. No peric ardial or pleural effusion. Liver, gallbladder, spleen, pancreas and bilateral adrenal glands are nor mal. 2.3 cm cyst at the lower pole of the right kidney. Heterotopic parenchymal ossification at a sev erely atrophic nonenhancing left kidney. There is moderate colonic diverticulosis with a sigmoid pred ominance. There is no adjacent inflammatory change to suggest diverticulitis. The small bowel is nor mal and largely decompressed with lack of distention limiting the evaluation of the small bowel. Deco mpressed bladder is unremarkable. No free intraperitoneal gas or fluid. No pathologically enlarged ab dominal or pelvic lymphadenopathy. Mild lumbar levocurvature with severe thoracolumbar spondylosis. C hronic T9 compression fracture. Left total hip arthroplasty. IMPRESSION: 1. Small bowel appears normal without evident obstruction or discrete masses. Assessment of the small bowel is however limited by the lack of significant distention. Reviewed, dictated and finalized at location A. IMPRESSION: 1. Small bowel appears normal without evident obstruction or discrete masses. A ssessment of the small bowel is however limited by the lack of significant dist ention.
[2019-11-08 20:26] LABS: Estimated Glomerular Filt Rate 59
== END 2019-11-08 09:55 | disposition home or self-care (01) ==
PROVIDERS: Visit Provider Surgery
DX: C17.9 Malignant neoplasm of small intestine, unspecified (principal)
CPT/HCPCS: 36415; 74177; Q9967

== ENCOUNTER 2019-11-22 06:19 | Outpatient (CLI) | payer MEDICARE, SELFPAY ==
[2019-11-24 20:02] LABS: SARS-CoV-2 RNA PCR Negative
== END 2019-11-22 06:20 | disposition home or self-care (01) ==
LOC: ANHCOVIDDT 06:19
PROVIDERS: Visit Provider Internal Medicine Gastroenterology
DX: Z01.812 Encounter for preprocedural laboratory examination (principal); Z11.59 Encounter for screening for other viral diseases
CPT/HCPCS: 87635; C9803; U0003

== ENCOUNTER 2019-12-01 01:16 | Outpatient (CLI) | payer MEDICARE, SELFPAY ==
[2019-12-01 18:41] LABS: SARS-CoV-2 RNA PCR Negative
== END 2019-12-01 01:17 | disposition home or self-care (01) ==
LOC: ANHCOVIDDT 01:16
PROVIDERS: Visit Provider Internal Medicine Gastroenterology
DX: Z01.812 Encounter for preprocedural laboratory examination (principal); Z11.59 Encounter for screening for other viral diseases
CPT/HCPCS: 87635; C9803; U0003

== ENCOUNTER 2019-12-03 01:50 | Day surgery (SDC) | payer MEDICARE, SELFPAY ==
[2019-11-18 11:23] VITALS: BMI 29.6
--- NOTE | 2019-11-24 13:26 | WPDANESEPPF ---
Anes - Initial Pre Proc Eval Procedure: Operation Date: 11/25/19 07:00 Proposed Procedures p [place] Capsule Endoscopy - Luciano Lewis MD s Esophagogastroduodenoscopy - Luciano Lewis MD Date/Time: 11/24/19 13:26 Surgeon: Luciano Lewis MD Pre Op Diagnosis: Small bowel obstruction w/o perforation Patient Data Age: 74 Gender: M Height: 5 ft 7 in Weight: 85.9 kg Allergies Allergy/AdvReac Type Severity Reaction Status Date / Time Sulfa (Sulfonamide Allergy Unknown Unknown Verified 12/03/19 06:42 Antibiotics) Home Medications Medication Instructions Recorded Confirmed Type quetiapine 300 mg tablet 300 mg PO .[facility] #90 tablet 05/09/19 12/03/19 Rx citalopram 20 mg PO DAILY 10/11/19 12/03/19 History finasteride 5 mg PO DAILY 10/11/19 12/03/19 History temazepam [Restoril] 30 mg PO HS 10/11/19 12/03/19 History tizanidine [Zanaflex] 4 mg PO TID PRN 10/11/19 12/03/19 History duloxetine 60 mg PO DAILY 10/31/19 12/03/19 History olanzapine 20 mg PO DAILY 10/31/19 12/03/19 History omega 5-wyx-wgs-fish oil [Fish Oil] 1 cap PO DAILY 10/31/19 12/03/19 History nabumetone 500 mg PO BID PRN 11/18/19 12/03/19 History Patient hx anesthesia problems: none Family hx [facility] problems: none [facility] Past Medical History Medical History (Updated 11/01/19 @ 16:44 by Devante Jeronimo MD) Benign essential tremor Benign prostatic hyperplasia (Unknown) Congenital renal agenesis, unilateral Depression with anxiety Fibromyalgia Hypercholesterolemia Hyperlipidemia Kidney stone Osteoarthritis Peptic ulcer Proximal muscle weakness (~08/2019) Pulmonary hypertension Mild pulmonary hypertension noted on echocardiogram in July 2018 with an estimated peak RVSP of 35 to 40 millimeters of mercury. Rhabdomyolysis Hospitalized for such in February 2016, July 2018, and September 2019. Schizophrenia (Unknown) Tension headache Surgical History Surgical History (Updated 10/31/19 @ 23:54 by Nakita Mohan PA-C) History of arthroscopy of right knee (~2002) History of bilateral cataract extraction History of inguinal hernia repair History of left shoulder replacement History of tonsillectomy and adenoidectomy History of total left hip replacement (~2010) History of umbilical hernia repair History of vasectomy Social History Social History (Updated 10/31/19 @ 23:52 by Nakita Mohan PA-C) Social History: Surrogate decision maker: Melina Guerrero, the patient's sister in [place]. Code status: Full code. Smoking status: Former smoker Smoking end date: 05/21/17 Additional smoking assessment comments: Off an on smoker Alcohol intake: former Substance use: never Additional living arrangements comments: The patient lives in his own home in [place]. He is . He has an adopted daughter whom he has not seen in many years. 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 Spiritual care concerns: No Anes - Eval Final PreProcedure Day of Procedure 11/24/19 13:26 Patient weight: normal Heart: regular rate and rhythm Lungs: clear to auscultation Airway: Mallampati scale class II Neurological: alert and oriented Last oral intake: >/= 8 hours ASA classification: II Emergent: no Anesthetic plan: proceed Anesthesia type and monitoring: general GIVS and standard monitoring Informed Consent: The patient's anesthetic plan and its attendant risks and benefits were discussed with the patient/family/POA. Questions were solicited and answers provided to the satisfaction of the patient/family/POA.
--- NOTE | 2019-11-24 15:08 | PC.NURSE ---
11/24/2019 [address] NYE THAT APPOINTMENT FOR EGD/CAPSULE STUDY HAS CHANGED TO DECEMBER 03, 2019. INFORMED OF NEW COVID TESTING DATE/TIME. INSTRUCTED TO FOLLOW PREVIOUS INSTRUCTIONS FOR EGD/CAPSULE STUDY PREPARATIONAND TO CALL IF ANY QUESTIONS. HEATHER MANRIQUEZ.
[2019-12-03 06:43] VITALS: BP 115/80; PULSE 90; RESP 18; TEMP 37; O2SAT 95
[2019-12-03] MEDS: LACTATED RINGERS 1,000 ML 150 ML IV CONT (06:58)
--- NOTE | 2019-12-03 07:22 | WPDHPUPDATE1 ---
History and Physical Update Update Date/Time: 12/03/19 07:22 History and Physical has been reviewed, including an updated exam of the patient. There are NO changes in the patient's condition. Risks, benefits, and alternatives have been discussed and questions answered. Patient agrees to proceed with procedure.
[2019-12-03 07:25] VITALS: BP 120/83; PULSE 81; RESP 30; O2SAT 93
[2019-12-03 07:35] VITALS: BP 135/80; PULSE 82; RESP 23; O2SAT 92
[2019-12-03 07:45] VITALS: BP 114/83; PULSE 85; RESP 23; O2SAT 96
--- NOTE | 2019-12-03 14:09 | SUR.OPER ---
Patient brought to GI Lab. Instructions for patient undergoing Capsule Endoscopy reviewed with patient. Consent form signed. Sensor array applied to patient's abdomen and connected to recorded. Patient instructed they may have clear liquids at 0915 this AM and eat or drink at 1115 this AM. Patient instructed to return to GI Lab at 1500 this afternoon for removal of recording device and to call [phone] or to return to the hospital if any nausea and vomiting or abdominal pain is experienced. Patient brought to Exam Room 1. See Intraoperative Note. Danisha RACHEL RN
--- NOTE | 2019-12-03 15:22 | SUR.PHASEII ---
Patient returned to the GI Lab at 1500 for recorder box removal. Patient voiced no complaints. States they have understanding of instructions. Patient left ambulatory.
== END 2019-12-03 08:02 | disposition home or self-care (01) ==
PROVIDERS: Visit Provider Internal Medicine Gastroenterology
PROC: 0DJ08ZZ Inspection of Upper Intestinal Tract, Via Natural or Artificial Opening Endoscopic (ICD-10-PCS; CPT 43235; principal; 2019-12-03 07:00)
PROC: 0DJ07ZZ Inspection of Upper Intestinal Tract, Via Natural or Artificial Opening (ICD-10-PCS; CPT 91110; 2019-12-03 07:00)
DX: K29.70 Gastritis, unspecified, without bleeding (principal); Q60.0 Renal agenesis, unilateral; I27.20 Pulmonary hypertension, unspecified; M79.7 Fibromyalgia; N40.0 Benign prostatic hyperplasia without lower urinary tract symptoms; G25.0 Essential tremor; F41.8 Other specified anxiety disorders; E78.5 Hyperlipidemia, unspecified; Z87.11 Personal history of peptic ulcer disease; F20.9 Schizophrenia, unspecified; Z87.891 Personal history of nicotine dependence
CPT/HCPCS: 43239; 87635; 88305; 91110; C9803; J2704; J7120; U0003

== ENCOUNTER 2020-05-12 20:59 | Inpatient (IN) | payer MEDICARE, SELFPAY ==
--- NOTE | ~2020-05-12 | XR_ITS ---
XR hip BI 2V w AP pelvis 05/12/2020 22:10 Indication: Leg weakness. Thigh pain. Procedure: 5 views of the hips including AP pelvis Comparison: 12/06/2018 Findings: There is moderate osteoarthritis of the right hip. Moderate lower lumbar spondylosis. There is a left total hip arthroplasty. There is heterotopic ossification adjacent to the left hip. No fra cture or traumatic malalignment. Pelvic rings are intact. Impression: 1: No acute bone or joint abnormality. Reviewed, dictated and finalized at location A. LY WORKER Impression: 1: No acute bone or joint abnormality.
--- NOTE | ~2020-05-12 | CT_ITS ---
EXAMINATION: CT brain wo con DATE: 05/12/2020 22:01 INDICATION: Weakness TECHNIQUE: Computed tomography (CT) of the head was performed without intravenous contrast. The dose- length product was 681.00 mGy-cm. Automated exposure control and iterative reconstruction technique w ere employed. COMPARISON: CT dated 10/11/2019 FINDINGS: Mild atrophy. There are scattered mild periventricular and subcortical white matter changes , most likely related to small vessel ischemic disease (microangiopathy). No ventriculomegaly or midl ine shift. Basilar cisterns are patent. No acute intracranial hemorrhage, infarction, mass or mass ef fect. Paranasal sinuses and mastoids are pneumatized. IMPRESSION: 1. No acute intracranial abnormality. Reviewed, dictated and finalized at location A. PROFESSIONAL
--- NOTE | ~2020-05-12 | XR_ITS ---
XR chest 2V 05/12/2020 22:10 Indication: Weakness. Hypertension. Procedure: AP and lateral views of the chest Comparison: Comparison to multiple prior studies sequentially, with oldest reviewed study dated 07/04. Findings: Heart size normal. No focal air space disease, pulmonary edema, pleural effusion or suspect ed pneumothorax. There is a left shoulder arthroplasty. No acute osseous abnormality. Healed right cl avicular fracture. There are chronic mid thoracic wedge compression fractures with accentuated kyphos is. Impression: 1: No acute cardiopulmonary disease. Reviewed, dictated and finalized at location A. QUALITY TECHNICIAN Impression: 1: No acute cardiopulmonary disease.
--- NOTE | 2020-05-12 21:02 | ECG_ITS ---
Measurements Intervals [place] Rate: 92 P: 55 MT: 156 QRS: -84 QRSD: 129 T: 6 QT: 389 QTc: 482 Interpretive Statements SINUS RHYTHM RIGHT BUNDLE BRANCH BLOCK LEFT ANTERIOR FASCICULAR BLOCK CANNOT RULE OUT SEPTAL INFARCT, AGE INDETERMINATE BASELINE ARTIFACT- I, III, AVR, AVL ABNORMAL ECG Electronically Signed On 05-13-2020 7:57:38 DEPARTMENT STORE DOOR GREETER by Mao Callejas D.O.
[2020-05-12 21:05] VITALS: BP 123/85; PULSE 92; RESP 17; TEMP 36.8; O2SAT 99
--- NOTE | 2020-05-12 21:08 | ED.WEAKNESS ---
HPI - Weakness General Chief complaint: Weakness Stated complaint: [place], Not feeling well,weakness, Thigh pain Time Seen by Provider: 05/12/20 21:07 Source: patient Mode of arrival: ambulatory Limitations: no limitations History of Present Illness HPI Narrative: Patient is a 74-year-old male with a history of schizophrenia, fibromyalgia, depression who presents for evaluation of headache and muscle weakness. Patient states he has had intermittent headaches over the past week that originate at the back of his head. He reports they are dull, aching in nature and at times mild. They do respond to brky-ebw-qvvnuyh headache medication. He denies any vision changes, nausea or vomiting. He reports feeling weak in his lower legs but states he is able to walk. He denies any numbness. No difficulty with speech. No fever or chills. No neck pain. No thunderclap sensation to the headache. No unintentional weight loss or night sweats. Patient has had no recent fall or injury. He denies any recent illnesses or medication changes. Related Data Home Medications Medication Instructions Recorded Confirmed citalopram 20 mg PO DAILY 10/11/19 12/03/19 finasteride 5 mg PO DAILY 10/11/19 12/03/19 temazepam [Restoril] 30 mg PO HS 10/11/19 12/03/19 tizanidine [Zanaflex] 4 mg PO TID PRN 10/11/19 12/03/19 duloxetine 60 mg PO DAILY 10/31/19 12/03/19 olanzapine 20 mg PO DAILY 10/31/19 12/03/19 omega 0-kzs-ysk-fish oil [Fish Oil] 1 cap PO DAILY 10/31/19 12/03/19 nabumetone 500 mg PO BID PRN 11/18/19 12/03/19 Allergies Allergy/AdvReac Type Severity Reaction Status Date / Time Sulfa (Sulfonamide Allergy Unknown Unknown Verified 12/03/19 06:42 Antibiotics) Review of Systems Review of Systems: Narrative: CONSTITUTIONAL: Denies fever, chills, or sweats. EYES: Denies visual changes, redness, or discharge. ENT: Denies rhinorrhea, congestion, sore throat, or otalgia. CARDIOVASCULAR: Denies chest pain, palpitations, or edema. RESPIRATORY: Denies cough or dyspnea. GASTROINTESTINAL: Denies abdominal pain, nausea, vomiting, or diarrhea. GENITOURINARY: Denies dysuria or hematuria. SKIN: Denies rash or itching. MUSCULOSKELETAL: Denies neck pain, lower back pain back pain, joint pain, or myalgia. NEUROLOGIC: Reports headache without numbness, reports feeling weak in his lower extremities PSYCHIATRIC: Reports history of schizophrenia, depression. [facility] Past Medical History Medical History Benign essential tremor Benign prostatic hyperplasia (Unknown) Congenital renal agenesis, unilateral Depression with anxiety Fibromyalgia Hypercholesterolemia Hyperlipidemia Kidney stone Osteoarthritis Peptic ulcer Proximal muscle weakness (~08/2019) Pulmonary hypertension Mild pulmonary hypertension noted on echocardiogram in July 2018 with an estimated peak RVSP of 35 to 40 millimeters of mercury. Rhabdomyolysis Hospitalized for such in February 2016, July 2018, and September 2019. Schizophrenia (Unknown) Tension headache Surgical History Surgical History History of arthroscopy of right knee (~2002) History of bilateral cataract extraction History of inguinal hernia repair History of left shoulder replacement History of tonsillectomy and adenoidectomy History of total left hip replacement (~2010) History of umbilical hernia repair History of vasectomy Family History Family History Father Cerebrovascular accident Mother Family history of malignant neoplasm of bone Pancreatic cancer Diabetes mellitus Sibling Diabetes mellitus Social History Social History Social History: Surrogate decision maker: Melina Guerrero, the patient's sister in [place]. Code status: Full code. Smoking status: Former smoker Smoking end date: 05/21/17 Gianfranco
[2020-05-12 21:09] VITALS: PULSE 88
[2020-05-12 21:19] LABS: Basophils Percent Auto 0.2 % (0.2-1.2); Eosinophils Percent Auto 0.1 % (0-4.4); Hematocrit 48.2 % (42.0-52.0); Hemoglobin 16.2 g/dL (14.0-18.0); Immature Granulocyte Absolute 0.07 K/mm3 (0.00-0.031); Immature Granulocyte Percent A 0.5 % (0-0.5); Lymphocytes Absolute Auto 1.74 K/mm3 (0.9-3.2); Lymphocytes Percent Auto 11.4 % (18.3-44.2); Mean Corpuscular HGB Conc 33.6 g/dl (32-36); Mean Corpuscular Hemoglobin 30.2 pg (26-34); Mean Corpuscular Volume 89.9 fl (80-100); Mean Platelet Volume 9.7 fl (7.4-10.4); Monocytes Absolute Auto 1.6 K/mm3 (0.1-0.6); Monocytes Percent Auto 10.1 % (2.6-8.5); Neutrophils Absolute Auto 11.9 K/mm3 (1.3-6.7); Neutrophils Percent Auto 77.7 % (45.5-73.1); Platelet Count Result 260 k/mm3 (150-375); Red Blood Count 5.36 M/mm3 (4.6-6.20); White Blood Count 15.3 K/mm3 (4.5-10.0)
[2020-05-12 21:32] LABS: Alanine Aminotransferase 217 U/L (4-50); Albumin Level 4.2 g/dL (3.5-5.1); Alkaline Phosphatase 87 U/L (38-126); Anion Gap 7 mmol/L (8-16); Bilirubin,Total 1.2 mg/dL (0.2-1.3); Blood Urea Nitrogen 41 mg/dL (9-20); Calcium 9.5 mg/dL (8.4-10.2); Carbon Dioxide 30 mmol/L (22-30); Chloride 105 mmol/L (98-107); Estimated CRCL calculation 45 ml/min; Estimated Glomerular Filt Rate 59; Glucose 115 mg/dL (75-110); Potassium 4.3 mmol/L (3.4-5.0); Sodium 142 mmol/L (137-145)
[2020-05-12 21:33] LABS: Add Urine Microscopic? YES; Appearance Urine Clear (Clear); Bilirubin Urine Negative (Negative); Blood Urine 3+ (Negative); Color Urine Yellow (Yellow); Glucose Urine UA Negative (Negative); Ketones Urine Negative (Negative); Leukocyte Esterase Ur Negative LEU/UL (Negative); Mucus Urine Heavy /lpf; Nitrate Urine Negative (Negative); Protein Urine 3+ mg/dL (Negative); Specific Grav Ur 1.027 (1.001-1.035); Squamous Epithelial Cell Urine Occasional /hpf (Few); Urobilinogen Urine Negative mg/dL (<2.0); WBC Urine 0-3 /hpf
[2020-05-12 21:41] LABS: Aspartate Amino Transferase 708 U/L (17-59)
[2020-05-12 22:16] LABS: Creatine Kinase > 16000 U/L (55-170)
[2020-05-12] MEDS: SODIUM CHLORIDE 0.9% IV 1,000 ML 999 ML IV CONT ×2 (22:30)
[2020-05-12 22:49] VITALS: BP 106/65; PULSE 77; RESP 16; O2SAT 99
[2020-05-12 23:12] VITALS: BP 124/89; PULSE 77; RESP 15; O2SAT 98
--- NOTE | 2020-05-12 23:13 | PM.IMHP ---
H&P: HPI History of Present Illness Date/Time: 05/12/20 23:13 Chief Complaint: lower extremity pain. Narrative: This is a pleasant 74 year old Caucsian with schizoaffective disorder, depression, anxiety, benign prostatic hyperplasia, and hypercholesterolemia who is well known to our hospitalist service for previous admissions and now presented to the emergency department with complaints of posterior headache and bilateral lower extremity leg pain/weakness. The patient has had multiple previous admissions for rhabdomyolysis which was previously attributed to statin therapy. He denies any recent medication changes and has had lower extremity pain/weakness for the past week. He has mostly been just lying around since then. He denies any fevers, chills, cough, chest pain, shortness of breath, abdominal pain, nausea, vomiting, dysuria, hematuria or LE swelling. He has had a few episodes of diarrhea. He denies any recent trauma or crush injury. He also denies any recent envenomation or electrocution. He denies any illicit drug use. He denies starting any new medications recently and has not been on any further statins. He was evaluated in the ER tonight and again found to be in acute nontraumatic rhabdomyolysis with a CK level of >16,000. He has been treated with IV fluids and we have been asked to admit him to the hospital for further care. Review of Systems Review of Systems: All systems reviewed & are unremarkable except as noted in HPI and below PMFSH Past Medical History Medical History Benign essential tremor Benign prostatic hyperplasia (Unknown) Congenital renal agenesis, unilateral Depression with anxiety Fibromyalgia Hypercholesterolemia Hyperlipidemia Kidney stone Osteoarthritis Peptic ulcer Proximal muscle weakness (~08/2019) Pulmonary hypertension Mild pulmonary hypertension noted on echocardiogram in July 2018 with an estimated peak RVSP of 35 to 40 millimeters of mercury. Rhabdomyolysis Hospitalized for such in February 2016, July 2018, and September 2019. Schizophrenia (Unknown) Tension headache Surgical History Surgical History History of arthroscopy of right knee (~2002) History of bilateral cataract extraction History of inguinal hernia repair History of left shoulder replacement History of tonsillectomy and adenoidectomy History of total left hip replacement (~2010) History of umbilical hernia repair History of vasectomy Family History Family History Father Cerebrovascular accident Mother Family history of malignant neoplasm of bone Pancreatic cancer Diabetes mellitus Sibling Diabetes mellitus Social History Social History Social History: Surrogate decision maker: Melina Guerrero, the patient's sister in [place]. Code status: Full code. Smoking status: Smoker, status unknown Tobacco type: cigarettes Smoking end date: 05/21/17 Additional smoking assessment comments: patient states he quit smoking last week Alcohol intake: current Drinks per week: 1 Substance use: never Additional living arrangements comments: The patient lives in his own home in [place]. He is . He has an adopted daughter whom he has not seen in many years. 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 Spiritual care concerns: No Meds Home Medications and Allergies Home Medications Medication Instructions Recorded Confirmed Type quetiapine 300 mg tablet [address] #90 tablet 05/09/19 05/13/20 Rx citalopram 20 mg PO DAILY 10/11/19 05/13/20 History finasteride 5 mg PO DAILY 10/11/19 05/13/20 History temazepam [Restoril] 30 mg PO HS 10/11/19 05/13/20 History duloxetine 60 mg PO DAILY 10/31/19 05/13/20 History olanz
[2020-05-12 23:20] VITALS: BP 156/81; PULSE 79; RESP 16; TEMP 36.6; O2SAT 97; BMI 27.6
--- NOTE | 2020-05-12 23:20 | PC.NURSE ---
This patient, Tammie Harp, was admitted to [facility] Surg Room 315-01. Patient/family oriented to hospital policies and general routines including ID bracelet, bed and alarms, visiting hours, pain management, procedures, bathroom and other care routines, personal items, smoking policy, room service/diet, and visiting hours. Information on how to activate the Rapid Response Team has been discussed. Patient/Family are encouraged to report perceived risks to care and to ask questions if they do not understand what they are told or what they should do.
[2020-05-12 23:39] VITALS: BP 156/81; PULSE 79; RESP 16; TEMP 36.6; O2SAT 97; BMI 27.6
[2020-05-12] MEDS: HYDROcodone/acetaminophen (*CRX) 5-325 MG TABLET 1 TAB PO (23:50)
[2020-05-13] MEDS: SODIUM CHLORIDE 0.9% IV 1,000 ML 150 ML IV CONT ×4 (00:56→22:31)
[2020-05-13] MEDS: HYDROcodone/acetaminophen (*CRX) 5-325 MG TABLET 1 TAB PO ×2 (03:37→09:25)
[2020-05-13 05:24] VITALS: BP 123/84; PULSE 76; RESP 18; TEMP 36.7; O2SAT 95
[2020-05-13 06:40] LABS: Basophils Percent Auto 0.1 % (0.2-1.2); Eosinophils Percent Auto 0.2 % (0-4.4); Hemoglobin 13.3 g/dL (14.0-18.0); Immature Granulocyte Absolute 0.04 K/mm3 (0.00-0.031); Immature Granulocyte Percent A 0.4 % (0-0.5); Lymphocytes Absolute Auto 1.91 K/mm3 (0.9-3.2); Mean Corpuscular HGB Conc 33.3 g/dl (32-36); Mean Corpuscular Volume 90.3 fl (80-100); Mean Platelet Volume 10.3 fl (7.4-10.4); Monocytes Absolute Auto 0.9 K/mm3 (0.1-0.6); Monocytes Percent Auto 7.8 % (2.6-8.5); Neutrophils Absolute Auto 8.4 K/mm3 (1.3-6.7); Neutrophils Percent Auto 74.5 % (45.5-73.1); Platelet Count Result 207 k/mm3 (150-375); Red Blood Count 4.43 M/mm3 (4.6-6.20); Red Cell Distribution Width 13.8 % (11.5-14.5); White Blood Count 11.2 K/mm3 (4.5-10.0)
[2020-05-13 08:00] VITALS: PULSE 76; RESP 18; O2SAT 95
[2020-05-13 08:38] LABS: Anion Gap 6 mmol/L (8-16); Blood Urea Nitrogen 34 mg/dL (9-20); Calcium 7.7 mg/dL (8.4-10.2); Carbon Dioxide 25 mmol/L (22-30); Chloride 109 mmol/L (98-107); Estimated CRCL calculation 54 ml/min; Estimated Glomerular Filt Rate > 60; Glucose 137 mg/dL (75-110); Magnesium 2.3 mg/dL (1.6-2.3); Potassium 3.4 mmol/L (3.4-5.0); Sodium 140 mmol/L (137-145)
[2020-05-13 08:51] LABS: Creatine Kinase 7597 U/L (55-170)
[2020-05-13] MEDS: CITALOPRAM HYDROBROMIDE 20 MG TABLET PO (09:27)
[2020-05-13] MEDS: ENOXAPARIN 40 MG/0.4 ML SYRINGE SUB-Q (09:27)
[2020-05-13] MEDS: FINASTERIDE 5 MG TABLET PO (09:27)
[2020-05-13] MEDS: OMEGA 3 POLYUNSAT FATTY ACIDS 1 GM CAP PO (09:27)
[2020-05-13] MEDS: DULoxetine HCL 60 MG CAPSULE.DR PO (09:28)
[2020-05-13 14:00] VITALS: BP 110/66; PULSE 77; RESP 18; TEMP 37.2; O2SAT 95
--- NOTE | 2020-05-13 14:42 | PM.IMPN ---
Progress Note: A&P Assessment and Plan (1) Rhabdomyolysis: Qualifiers: Rhabdomyolysis type: non-traumatic Qualified Code(s): M62.82 - Rhabdomyolysis Code(s): M62.82 - Rhabdomyolysis Status: Acute Assessment and Plan: Patient with rhabdomyolysis of unclear etiology. TCK >59013. Not on statin therapy. Seroquel and olanzapine both can cause rhabdomyolysis. Total CK better with IV fluids. Will discuss with psychiatry (left message). Continue IV fluids. (2) BOGDAN (acute kidney injury): Code(s): N17.9 - Acute kidney failure, unspecified Status: Acute Assessment and Plan: Present on admission with creatinine 1.2 and creatinine clearance of 45. Renal function improved with IV fluids. [place] related to above. (3) Elevated liver enzymes: Code(s): R74.8 - Abnormal levels of other serum enzymes Status: Acute Assessment and Plan: AST 708 and ALT 217 on admission. Most likely related to above. Repeat LFTs in the morning. (4) Headache: Code(s): R51.9 - Headache, unspecified Status: Acute Assessment and Plan: Patient complains a headache on admission but no recurrence. Continue to monitor. (5) Leukocytosis: Code(s): D72.829 - Elevated white blood cell count, unspecified Status: Acute Assessment and Plan: White count 17285 on admission. Chest x-ray is clear. UA noted and not consistent with UTI. Not on antibiotics. White count trending downward. Continue to monitor. (6) Schizophrenia: Onset Date: Unknown Qualifiers: Schizophrenia type: unspecified Qualified Code(s): F20.9 - Schizophrenia, unspecified Code(s): F20.9 - Schizophrenia, unspecified Status: Chronic Assessment and Plan: Mood stable. These could be contributing to his rhabdomyolysis. Will discuss with psychiatry but I am reluctant to stop medication at this time until we can determine causality. (7) Hyperlipidemia: Qualifiers: Hyperlipidemia type: unspecified Qualified Code(s): E78.5 - Hyperlipidemia, unspecified Code(s): E78.5 - Hyperlipidemia, unspecified Status: Chronic Assessment and Plan: Currently on fish oil only. No statin therapy given his history of rhabdomyolysis. (8) DVT prophylaxis: Code(s): Z29.9 - Encounter for prophylactic measures, unspecified Status: Acute Assessment and Plan[facility] Date/time seen: 05/13/20 14:42 Interval history: Date of service 05/13/2020 74yo male with schizoaffective disorder, BPH and hyperlipidemia here for lower extremity pain and weakness and found to have rhabdomyolysis. Patient is voiding well but states not significant urine output. No diarrhea. He does feel constipated but last bowel movement was yesterday. No recent fever or chills. No chest pain or shortness of breath. He has not been lying on the ground for prolonged periods. He has been inactive over the past few weeks however. No recent illnesses. No nausea or vomiting. Exam Narrative: Exam Narrative: AF 98.1 123/84 76 18 95% ra Gen - NARD Chest - CTA bilaterally, nml RR CV - RRR S1/S2 Abd - Soft, NT/ND, Positive BS Ext - No pedal edema. No muscle pain to palpation of the thigh or calf muscles. Psych - Nml mood and affect Skin -no leg bruising noted. Objective Data Vital Signs Vital Signs: Vital Signs - 24 hr 05/12/20 21:05 05/12/20 21:09 05/12/20 22:49 Temperature 98.2 F Pulse Rate 92 88 77 Respiratory Rate 17 16 Blood Pressure 123/85 106/65 Pulse Oximetry 99 99 05/12/20 23:12 05/12/20 23:20 05/12/20 23:39 Temperature 97.8 F 97.8 F Pulse Rate 77 79 79 Respiratory Rate 15 16 16 Blood Pressure 124/89 156/81 H 156/81 H Pulse Oximetry 98 97 97 05/13/20 05:24 05/13/20 08:00 Temperature 98.1 F Pulse Rate 76 76 Respiratory Rate 18 18 Blood Pressure 123/84 Pulse Oximetry 95 95
[2020-05-13] MEDS: POTASSIUM CHLORIDE 20 MEQ TABLET 40 MEQ PO (17:38)
[2020-05-13] MEDS: TEMAZEPAM (*CRX) 15 MG CAPSULE 30 MG PO (21:29)
[2020-05-13] MEDS: QUEtiapine FUMARATE 100 MG TABLET 300 MG PO (21:33)
[2020-05-13 22:00] VITALS: BP 105/58; PULSE 74; RESP 20; TEMP 36.6; O2SAT 93
[2020-05-14 06:00] VITALS: BP 112/61; PULSE 71; RESP 18; TEMP 36.7; O2SAT 94
[2020-05-14 06:41] LABS: Basophils Percent Auto 0.4 % (0.2-1.2); Eosinophils Absolute Auto 0.2 K/mm3 (0-0.3); Eosinophils Percent Auto 2.2 % (0-4.4); Hematocrit 37.3 % (42.0-52.0); Hemoglobin 12.2 g/dL (14.0-18.0); Immature Granulocyte Absolute 0.03 K/mm3 (0.00-0.031); Immature Granulocyte Percent A 0.4 % (0-0.5); Lymphocytes Absolute Auto 1.88 K/mm3 (0.9-3.2); Lymphocytes Percent Auto 22.8 % (18.3-44.2); Mean Corpuscular HGB Conc 32.7 g/dl (32-36); Mean Corpuscular Hemoglobin 30.5 pg (26-34); Mean Corpuscular Volume 93.3 fl (80-100); Mean Platelet Volume 10.1 fl (7.4-10.4); Monocytes Absolute Auto 0.8 K/mm3 (0.1-0.6); Monocytes Percent Auto 9.2 % (2.6-8.5); Neutrophils Absolute Auto 5.4 K/mm3 (1.3-6.7); Platelet Count Result 165 k/mm3 (150-375); Red Cell Distribution Width 13.9 % (11.5-14.5); White Blood Count 8.3 K/mm3 (4.5-10.0)
[2020-05-14] MEDS: DULoxetine HCL 60 MG CAPSULE.DR PO (08:27)
[2020-05-14] MEDS: CITALOPRAM HYDROBROMIDE 20 MG TABLET PO (08:27)
[2020-05-14] MEDS: ENOXAPARIN 40 MG/0.4 ML SYRINGE SUB-Q (08:27)
[2020-05-14] MEDS: OMEGA 3 POLYUNSAT FATTY ACIDS 1 GM CAP PO (08:28)
[2020-05-14] MEDS: FINASTERIDE 5 MG TABLET PO (08:28)
[2020-05-14 08:58] LABS: Albumin Level 2.6 g/dL (3.5-5.1)
[2020-05-14 09:00] LABS: Alanine Aminotransferase 116 U/L (4-50); Alkaline Phosphatase 54 U/L (38-126); Anion Gap 0 mmol/L (8-16); Aspartate Amino Transferase 210 U/L (17-59); Bilirubin,Total 0.7 mg/dL (0.2-1.3); Blood Urea Nitrogen 21 mg/dL (9-20); Calcium 7.7 mg/dL (8.4-10.2); Carbon Dioxide 25 mmol/L (22-30); Chloride 113 mmol/L (98-107); Estimated CRCL calculation 59 ml/min; Estimated Glomerular Filt Rate > 60; Glucose 91 mg/dL (75-110); Potassium 3.9 mmol/L (3.4-5.0); Sodium 138 mmol/L (137-145)
[2020-05-14 09:11] LABS: Creatine Kinase 2600 U/L (55-170)
[2020-05-14] MEDS: polyethylene glycoL 3350 17 GM POWD.PACK PO (09:55)
[2020-05-14] MEDS: SODIUM CHLORIDE 0.9% IV 1,000 ML 150 ML IV CONT (11:01)
[2020-05-14 14:00] VITALS: BP 135/76; PULSE 94; RESP 18; TEMP 36.6; O2SAT 98
--- NOTE | 2020-05-14 16:59 | PM.IMPN ---
Progress Note: A&P Assessment and Plan (1) Rhabdomyolysis: Qualifiers: Rhabdomyolysis type: non-traumatic Qualified Code(s): M62.82 - Rhabdomyolysis Code(s): M62.82 - Rhabdomyolysis Status: Acute Assessment and Plan: Patient with rhabdomyolysis of unclear etiology. TCK >10916. Not on statin therapy. Seroquel and olanzapine both can cause rhabdomyolysis. Total CK better with IV fluids. Will discuss with psychiatry (left message again). TCK better today. Continue IV fluids. Lasix x 1. Decrease fluid rate. (2) BOGDAN (acute kidney injury): Code(s): N17.9 - Acute kidney failure, unspecified Status: Acute Assessment and Plan: Present on admission with creatinine 1.2 and creatinine clearance of 45. Renal function improved with IV fluids. [place] related to above. (3) Elevated liver enzymes: Code(s): R74.8 - Abnormal levels of other serum enzymes Status: Acute Assessment and Plan: AST 708 and ALT 217 on admission. Most likely related to above. Repeat LFTs better as expected. (4) Headache: Code(s): R51.9 - Headache, unspecified Status: Acute Assessment and Plan: Patient complained of a headache on admission but no recurrence. Continue to monitor. (5) Leukocytosis: Code(s): D72.829 - Elevated white blood cell count, unspecified Status: Acute Assessment and Plan: White count 15K on admission. Chest x-ray is clear. UA noted and not consistent with UTI. Not on antibiotics. White count normal now. Continue to monitor. (6) Schizophrenia: Onset Date: Unknown Qualifiers: Schizophrenia type: unspecified Qualified Code(s): F20.9 - Schizophrenia, unspecified Code(s): F20.9 - Schizophrenia, unspecified Status: Chronic Assessment and Plan: Mood stable. These could be contributing to his rhabdomyolysis. Will discuss with psychiatry but I am reluctant to stop medication at this time until we can determine causality. (7) Hyperlipidemia: Qualifiers: Hyperlipidemia type: unspecified Qualified Code(s): E78.5 - Hyperlipidemia, unspecified Code(s): E78.5 - Hyperlipidemia, unspecified Status: Chronic Assessment and Plan: Currently on fish oil only. No statin therapy given his history of rhabdomyolysis. (8) DVT prophylaxis: Code(s): Z29.9 - Encounter for prophylactic measures, unspecified Status: Acute Assessment and Plan: Juniorx Subjective Date/time seen: 05/14/20 16:59 Interval history: Date of service 05/14 74yo male with schizoaffective disorder, BPH and hyperlipidemia here for lower extremity pain and weakness and found to have rhabdomyolysis. Patient feels well. Eating okay. No CP or SOB. Leg pain better. Walking to the BR with assistance. Exam Narrative: Exam Narrative: AF 97.8 135/76 94 18 98% ra Gen - NARD Chest - CTA bilaterally, nml RR CV - RRR S1/S2 Abd - Soft, NT/ND, Positive BS Ext - No pedal edema. Psych - Nml mood and affect Skin - warm and dry Objective Data Vital Signs Vital Signs: Vital Signs - 24 hr 05/13/20 22:00 05/14/20 06:00 05/14/20 14:00 Temperature 97.9 F 98.1 F 97.8 F Pulse Rate 74 71 94 Respiratory Rate 20 18 18 Blood Pressure 105/58 L 112/61 135/76 Pulse Oximetry 93 94 98 Intake/Output Intake/Output: Intake & Output 05/11/20 05/12/20 05/13/20 05/14/20 23:59 23:59 23:59 23:59 Intake Total 6970 1800 Output Total 730 1350 Balance 6240 450 Meds/Results Medications: Active Medications Generic Name Dose Route Start Last Admin Trade Name Freq PRN Reason Stop Dose Admin Acetaminophen 650 mg 05/12/20 23:35 Acetaminophen 325 Mg Tablet PO Q4H PRN Mild Pain (1-3) or Fever Hydrocodone Bitart/Acetaminophen 1 tab 05/12/20 23:35 05/13/20 09:25 Hydrocodone/Acetaminophen (*Crx) 5-325 Mg Tablet PO 1 tab Q4H
[2020-05-14] MEDS: FUROSEMIDE INJ 40 MG/4 ML VIAL 20 MG IV PUSH (17:51)
[2020-05-14 20:44] VITALS: TEMP 37.6
[2020-05-14] MEDS: ACETAMINOPHEN 325 MG TABLET 650 MG PO (20:44)
[2020-05-14] MEDS: QUEtiapine FUMARATE 100 MG TABLET 300 MG PO (20:44)
[2020-05-14] MEDS: TEMAZEPAM (*CRX) 15 MG CAPSULE 30 MG PO (20:44)
[2020-05-14] MEDS: SODIUM CHLORIDE 0.9% IV 1,000 ML 70 ML IV CONT (20:47)
[2020-05-14 21:57] VITALS: BP 107/67; PULSE 91; RESP 16; TEMP 37.6; O2SAT 97
[2020-05-15 05:12] VITALS: TEMP 37.1
[2020-05-15 05:26] VITALS: BP 107/60; PULSE 80; RESP 18; TEMP 36.8; O2SAT 96
[2020-05-15 06:18] LABS: Basophils Percent Auto 0.4 % (0.2-1.2); Eosinophils Absolute Auto 0.3 K/mm3 (0-0.3); Eosinophils Percent Auto 4.2 % (0-4.4); Hematocrit 38.2 % (42.0-52.0); Hemoglobin 12.6 g/dL (14.0-18.0); Immature Granulocyte Absolute 0.05 K/mm3 (0.00-0.031); Immature Granulocyte Percent A 0.7 % (0-0.5); Lymphocytes Absolute Auto 1.86 K/mm3 (0.9-3.2); Mean Corpuscular Hemoglobin 29.7 pg (26-34); Mean Corpuscular Volume 90.1 fl (80-100); Mean Platelet Volume 10.4 fl (7.4-10.4); Monocytes Absolute Auto 0.7 K/mm3 (0.1-0.6); Neutrophils Absolute Auto 4.5 K/mm3 (1.3-6.7); Neutrophils Percent Auto 60.7 % (45.5-73.1); Platelet Count Result 176 k/mm3 (150-375); Red Blood Count 4.24 M/mm3 (4.6-6.20); Red Cell Distribution Width 13.3 % (11.5-14.5); White Blood Count 7.4 K/mm3 (4.5-10.0)
[2020-05-15 06:31] LABS: Alanine Aminotransferase 125 U/L (4-50); Albumin Level 2.8 g/dL (3.5-5.1); Alkaline Phosphatase 58 U/L (38-126); Anion Gap 3 mmol/L (8-16); Aspartate Amino Transferase 155 U/L (17-59); Bilirubin,Total 0.7 mg/dL (0.2-1.3); Blood Urea Nitrogen 18 mg/dL (9-20); Calcium 8.1 mg/dL (8.4-10.2); Carbon Dioxide 29 mmol/L (22-30); Chloride 106 mmol/L (98-107); Creatine Kinase 1027 U/L (55-170); Estimated CRCL calculation 59 ml/min; Estimated Glomerular Filt Rate > 60; Glucose 90 mg/dL (75-110); Potassium 3.8 mmol/L (3.4-5.0); Sodium 138 mmol/L (137-145)
[2020-05-15 07:17] LABS: Hepatitis B Surface Antigen Negative (Negative)
[2020-05-15 07:23] LABS: HAV RESULT Negative (Negative); Hepatitis B Core IgM Result Negative (Negative)
[2020-05-15 07:34] LABS: Hepatitis C Virus Antibody Negative (Negative)
[2020-05-15] MEDS: OMEGA 3 POLYUNSAT FATTY ACIDS 1 GM CAP PO (09:19)
[2020-05-15] MEDS: FINASTERIDE 5 MG TABLET PO (09:19)
[2020-05-15] MEDS: ENOXAPARIN 40 MG/0.4 ML SYRINGE SUB-Q (09:19)
[2020-05-15] MEDS: DULoxetine HCL 60 MG CAPSULE.DR PO (09:19)
[2020-05-15] MEDS: CITALOPRAM HYDROBROMIDE 20 MG TABLET PO (09:19)
[2020-05-15 12:24] LABS: Add Urine Microscopic? YES; Appearance Urine Clear (Clear); Bilirubin Urine Negative (Negative); Blood Urine Negative (Negative); Color Urine Straw (Yellow); Glucose Urine UA Negative (Negative); Ketones Urine Negative (Negative); Leukocyte Esterase Ur Negative LEU/UL (NEGATIVE); Nitrate Urine Negative (Negative); Protein Urine Negative (Negative); RBC Urine 0-2 /hpf (0-2); Specific Grav Ur 1.004 (1.001-1.035); WBC Urine 0-3 /hpf (0-3)
--- NOTE | 2020-05-15 13:56 | PM.DS ---
DS: Admitting Diagnosis Admitting Diagnosis Admitting Diagnosis: bilateral lower extremity leg pain/weakness DS: Discharge Diagnosis Discharge Diagnosis (1) Rhabdomyolysis: Qualifiers: Rhabdomyolysis type: non-traumatic Qualified Code(s): M62.82 - Rhabdomyolysis Code(s): M62.82 - Rhabdomyolysis Status: Acute Assessment and Plan: Patient presents with bilateral lower extremity leg pain/weakness and found to have Total CK >50536. Etiology of rhabdomyolysis is unclear. Not on statin therapy. Seroquel and olanzapine both can cause rhabdomyolysis; we did continue these medications here. Treated with IV fluids. Total CK better with level today at 1000. UA today showing no blood. Discussed with the patient's psychiatry (Dr Sandoval) by phone. He recommended decreasing the Seroquel to 200mg QHS. Patient informed. Patietn able to be discharged today. (2) BOGDAN (acute kidney injury): Code(s): N17.9 - Acute kidney failure, unspecified Status: Acute Assessment and Plan: Present on admission with creatinine 1.2 and creatinine clearance of 45. Renal function improved with IV fluids. [place] related to above. (3) Elevated liver enzymes: Code(s): R74.8 - Abnormal levels of other serum enzymes Status: Acute Assessment and Plan: AST 708 and ALT 217 on admission. Most likely related to above. Repeat LFTs better. (4) Headache: Code(s): R51.9 - Headache, unspecified Status: Acute Assessment and Plan: Patient complained of a headache on admission but no recurrence. Continue to monitor. (5) Leukocytosis: Code(s): D72.829 - Elevated white blood cell count, unspecified Status: Acute Assessment and Plan: White count 15K on admission. Chest x-ray is clear. UA noted and not consistent with UTI. Not on antibiotics. White count normal now. (6) Schizophrenia: Onset Date: Unknown Qualifiers: Schizophrenia type: unspecified Qualified Code(s): F20.9 - Schizophrenia, unspecified Code(s): F20.9 - Schizophrenia, unspecified Status: Chronic Assessment and Plan: Mood stable. Seroqueal and/or Zyprexa could be contributing to his rhabdomyolysis. Reluctant to stop medication at this time until we can determine causality. Discussed with psychiatry as mentioned above. (7) Hyperlipidemia: Qualifiers: Hyperlipidemia type: unspecified Qualified Code(s): E78.5 - Hyperlipidemia, unspecified Code(s): E78.5 - Hyperlipidemia, unspecified Status: Chronic Assessment and Plan: Currently on fish oil only. No statin therapy given his history of rhabdomyolysis. DS: Summary Hospital Course Reason for hospitalization: 74yo male with schizoaffective disorder here for bilateral lower extremity leg pain/weakness and found to have rhabdomyolysis. Hospital Course: Please see above for details of hospital course Status at Discharge Cognitive/behavioral status at discharge: PATIENT IS STABLE FOR DISCHARGE Time Spent with Patient Time attestation: Total time spent providing and/or coordinating discharge services: 35 minutes Time spent: Greater than 30 minutes Specific discharge activities: Discussed with patient. Patient Education. Discussed with psychiatry Exam Narrative: Exam Narrative: No complaints. Feels well. No CP or SOB. Eating normally. Leg pain much better. Walking to the BR AF 98.3 107/60 80 18 96% ra Gen - NARD Chest - CTA bilaterally, nml RR CV - RRR S1/S2 Abd - Soft, NT/ND, Positive BS Ext - No pedal edema. Psych - Nml mood and affect Skin - warm and dry DS: Data Data Completed and Pending Labs on day of discharge: Labs from last 24 hours 05/15/20 05/15/20 05/15/20 12:14 05:57 05:57 WBC RBC Hgb Hct MCV MCH MCHC RDW Plt Count MPV Immature Gran % (Auto) Neut % (Auto) Lymph %
[2020-05-15 14:00] VITALS: BP 120/63; PULSE 78; RESP 18; TEMP 36.9; O2SAT 97
== END 2020-05-15 14:27 | disposition home or self-care (01) | DRG 558 ==
LOC: ANHED 22:27 → ANH3MEDSUR 23:14
PROVIDERS: Emergency Medicine; Admitting Provider Family Medicine; Emergency Provider Emergency Medicine; PCP Student in an Organized Health Care Education/Training Program; Visit Provider Internal Medicine
DX: M62.82 Rhabdomyolysis (principal); N17.9 Acute kidney failure, unspecified; R51.9 Headache, unspecified; R74.8 Abnormal levels of other serum enzymes; D72.829 Elevated white blood cell count, unspecified; F20.9 Schizophrenia, unspecified; F41.8 Other specified anxiety disorders; E78.5 Hyperlipidemia, unspecified; G25.0 Essential tremor; N40.0 Benign prostatic hyperplasia without lower urinary tract symptoms; Z79.899 Other long term (current) drug therapy; Z87.891 Personal history of nicotine dependence; Z98.42 Cataract extraction status, left eye; Z98.41 Cataract extraction status, right eye; Z96.642 Presence of left artificial hip joint; Z96.612 Presence of left artificial shoulder joint
CPT/HCPCS: 36415; 70450; 71046; 73521; 80048; 80053; 80074; 81001; 82550; 83735; 85025; 93005; 96360; 96361; 96372; 99285; A9270; G0378; J1650; J1940; J7030

== ENCOUNTER 2020-05-17 14:17 | Emergency (ER) | payer MEDICARE, SELFPAY ==
[2020-05-17] VITALS (19 sets, daily range): BP systolic 122–142; BP diastolic 73–89; PULSE 87–102; RESP 6–18; TEMP 36.8; O2SAT 92–97
[2020-05-17 14:44] LABS: Basophils Absolute Auto 0.1 K/mm3 (0.0-0.1); Basophils Percent Auto 0.5 % (0.2-1.2); Eosinophils Absolute Auto 0.3 K/mm3 (0-0.3); Eosinophils Percent Auto 3.1 % (0-4.4); Hematocrit 40.9 % (42.0-52.0); Hemoglobin 13.9 g/dL (14.0-18.0); Immature Granulocyte Absolute 0.11 K/mm3 (0.00-0.031); Immature Granulocyte Percent A 1.1 % (0-0.5); Lymphocytes Absolute Auto 1.91 K/mm3 (0.9-3.2); Mean Corpuscular Hemoglobin 30.9 pg (26-34); Mean Corpuscular Volume 90.9 fl (80-100); Mean Platelet Volume 10.4 fl (7.4-10.4); Monocytes Absolute Auto 0.9 K/mm3 (0.1-0.6); Monocytes Percent Auto 9.2 % (2.6-8.5); Neutrophils Absolute Auto 6.3 K/mm3 (1.3-6.7); Neutrophils Percent Auto 66.1 % (45.5-73.1); Platelet Count Result 220 k/mm3 (150-375); Red Cell Distribution Width 13.4 % (11.5-14.5); White Blood Count 9.6 K/mm3 (4.5-10.0)
--- NOTE | 2020-05-17 14:45 | PC.NURSE ---
patient here with c/o headache. see initial notes and assessment. hx of previous hospitalizations due to rhabdo. symptoms feel similar to patient's admission on 05/12. no change in condition. alert. oriented. resting on stretcher.
[2020-05-17 14:59] LABS: Creatine Kinase 556 U/L (55-170)
[2020-05-17 15:00] LABS: Alanine Aminotransferase 91 U/L (4-50); Albumin Level 3.4 g/dL (3.5-5.1); Alkaline Phosphatase 76 U/L (38-126); Anion Gap 4 mmol/L (8-16); Aspartate Amino Transferase 61 U/L (17-59); Bilirubin,Total 0.2 mg/dL (0.2-1.3); Blood Urea Nitrogen 22 mg/dL (9-20); Calcium 8.6 mg/dL (8.4-10.2); Carbon Dioxide 29 mmol/L (22-30); Chloride 104 mmol/L (98-107); Estimated CRCL calculation 59 ml/min; Estimated Glomerular Filt Rate > 60; Glucose 94 mg/dL (75-110); Potassium 4.1 mmol/L (3.4-5.0); Sodium 137 mmol/L (137-145)
--- NOTE | 2020-05-17 15:03 | PC.NURSE ---
labs resulted. CK down to 556. last visit CK >1000.
[2020-05-17 15:09] LABS: Creatine Kinase MB 7.3 ng/mL (0.0-2.37)
[2020-05-17] MEDS: METOCLOPRAMIDE HCL INJ 10 MG/2 ML VIAL IV PUSH (15:15)
[2020-05-17] MEDS: diphenhydrAMINE HCl INJ 50 MG/ML VIAL 25 MG IV PUSH (15:15)
--- NOTE | 2020-05-17 15:16 | ED.GENADULT ---
HPI - General Adult General Chief complaint: Headache Stated complaint: Abnormal Labs Time Seen by Provider: 05/17/20 14:42 Source: patient History of Present Illness HPI narrative: Patient is a 74 y/o male complaining of bilateral occipital headache starting approximately 5 hours ago. He rates his pain as 5/10. He took Tylenol [employer], which has not helped yet. He has no fever, neck pain, nausea/vomiting or focal weakness/numbness. Of note, he was recently admitted for rhabdomyolysis when he presented with leg pain and headache. However, he has no leg pain currently. Related Data Home Medications Medication Instructions Recorded Confirmed citalopram 20 mg PO DAILY 10/11/19 05/13/20 finasteride 5 mg PO DAILY 10/11/19 05/13/20 temazepam [Restoril] 30 mg PO HS 10/11/19 05/13/20 duloxetine 60 mg PO DAILY 10/31/19 05/13/20 olanzapine 20 mg PO DAILY 10/31/19 05/13/20 omega 3-okv-eml-fish oil [Fish Oil] 1 cap PO DAILY 10/31/19 05/13/20 Allergies Allergy/AdvReac Type Severity Reaction Status Date / Time Sulfa (Sulfonamide Allergy Unknown Rash Verified 05/17/20 14:57 Antibiotics) Review of Systems Constitutional: Constitutional: Denies chills, Denies fever(s), Reports headache(s) and Denies weakness Eyes: Eyes: Denies blurry vision ENT: Reports headache(s) and Denies neck pain Cardiovascular: Cardiovascular: Denies chest pain and Denies dyspnea Respiratory: Respiratory: Denies cough and Denies dyspnea Gastrointestinal: Gastrointestinal: Denies abdominal pain, Denies diarrhea, Denies nausea and Denies vomiting Genitourinary: Genitourinary: Denies hematuria and Denies dysuria Musculoskeletal: Musculoskeletal: Denies back pain and Denies neck pain Neurologic: Reports headache(s) and Denies weakness [facility] Past Medical History Medical History Benign essential tremor Benign prostatic hyperplasia (Unknown) Congenital renal agenesis, unilateral Depression with anxiety Fibromyalgia Hypercholesterolemia Hyperlipidemia Kidney stone Osteoarthritis Peptic ulcer Proximal muscle weakness (~08/2019) Pulmonary hypertension Mild pulmonary hypertension noted on echocardiogram in July 2018 with an estimated peak RVSP of 35 to 40 millimeters of mercury. Rhabdomyolysis Hospitalized for such in February 2016, July 2018, and September 2019. Schizophrenia (Unknown) Tension headache Surgical History Surgical History History of arthroscopy of right knee (~2002) History of bilateral cataract extraction History of inguinal hernia repair History of left shoulder replacement History of tonsillectomy and adenoidectomy History of total left hip replacement (~2010) History of umbilical hernia repair History of vasectomy Family History Family History Father Cerebrovascular accident Mother Family history of malignant neoplasm of bone Pancreatic cancer Diabetes mellitus Sibling Diabetes mellitus Social History Social History Social History: Surrogate decision maker: Melina Guerrero, the patient's sister in [place]. Code status: Full code. Smoking status: Smoker, status unknown Tobacco type: cigarettes Smoking end date: 05/21/17 Additional smoking assessment comments: patient states he quit smoking last week Alcohol intake: current Drinks per week: 1 Substance use: never Additional living arrangements comments: The patient lives in his own home in [place]. He is . He has an adopted daughter whom he has not seen in many years. 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 Spiritual care concerns: No Exam Const: General: no acute distress and well developed Orientation/consciousness: oriented to person, oriented to place, or
--- NOTE | 2020-05-17 15:25 | PC.NURSE ---
patient medicated as ordered. talking on cell phone to family. patient updated with CK results.
[2020-05-17] MEDS: SODIUM CHLORIDE 0.9% IV 1,000 ML 999 ML IV CONT (15:37)
[2020-05-17] MEDS: KETOROLAC 15 MG/ML VIAL (*BKC) IV PUSH (15:41)
== END 2020-05-17 17:02 | disposition home or self-care (01) ==
PROVIDERS: Emergency Medicine; Emergency Provider Emergency Medicine; PCP Student in an Organized Health Care Education/Training Program
DX: R51.9 Headache, unspecified (principal); Q60.0 Renal agenesis, unilateral; M79.7 Fibromyalgia; E78.5 Hyperlipidemia, unspecified; Z87.442 Personal history of urinary calculi; M19.90 Unspecified osteoarthritis, unspecified site; I27.20 Pulmonary hypertension, unspecified; F41.8 Other specified anxiety disorders; F20.9 Schizophrenia, unspecified; Z87.891 Personal history of nicotine dependence
CPT/HCPCS: 36415; 80053; 82550; 82553; 85025; 96361; 96374; 96375; 99284; J1200; J1885; J2765; J7030

== ENCOUNTER 2020-06-06 14:13 | Emergency (ER) | payer MEDICARE, SELFPAY ==
[2020-06-06 14:14] VITALS: TEMP 36.9
[2020-06-06 14:20] VITALS: BP 111/71; PULSE 95; RESP 16; TEMP 36.8; O2SAT 96
--- NOTE | 2020-06-06 14:34 | ED.GENADULT ---
HPI - General Adult General Chief complaint: Weakness Stated complaint: muscle aches Time Seen by Provider: 06/06/20 14:22 Source: patient History of Present Illness HPI narrative: Patient is a 74 y/o male complaining of aching bilateral leg pain starting today. He rates his pain as 5/10. There is no alleviating or exacerbating factor. He also has a headache. He denies any fever. He is able to walk without assistance. He states that he has history rhabdomyolysis and he is concerned about possible recurrence. Related Data Home Medications Medication Instructions Recorded Confirmed citalopram 20 mg PO DAILY 10/11/19 05/13/20 finasteride 5 mg PO DAILY 10/11/19 05/13/20 temazepam [Restoril] 30 mg PO HS 10/11/19 05/13/20 duloxetine 60 mg PO DAILY 10/31/19 05/13/20 olanzapine 20 mg PO DAILY 10/31/19 05/13/20 omega 4-asl-gxf-fish oil [Fish Oil] 1 cap PO DAILY 10/31/19 05/13/20 Allergies Allergy/AdvReac Type Severity Reaction Status Date / Time Sulfa (Sulfonamide Allergy Unknown Rash Verified 06/06/20 14:20 Antibiotics) Review of Systems Constitutional: Constitutional: Denies chills, Denies fever(s), Reports headache(s) and Denies weakness Eyes: Eyes: Denies blurry vision ENT: Reports headache(s) and Denies neck pain Cardiovascular: Cardiovascular: Denies chest pain and Denies dyspnea Respiratory: Respiratory: Denies cough and Denies dyspnea Gastrointestinal: Gastrointestinal: Denies abdominal pain, Denies diarrhea, Denies nausea and Denies vomiting Genitourinary: Genitourinary: Denies hematuria and Denies dysuria Musculoskeletal: Musculoskeletal: Reports as per HPI, Denies back pain, Denies neck pain and Reports other (bilateral leg pain) Neurologic: Reports headache(s) and Denies weakness [facility] Past Medical History Medical History Benign essential tremor Benign prostatic hyperplasia (Unknown) Congenital renal agenesis, unilateral Depression with anxiety Fibromyalgia Hypercholesterolemia Hyperlipidemia Kidney stone Osteoarthritis Peptic ulcer Proximal muscle weakness (~08/2019) Pulmonary hypertension Mild pulmonary hypertension noted on echocardiogram in July 2018 with an estimated peak RVSP of 35 to 40 millimeters of mercury. Rhabdomyolysis Hospitalized for such in February 2016, July 2018, and September 2019. Schizophrenia (Unknown) Tension headache Surgical History Surgical History History of arthroscopy of right knee (~2002) History of bilateral cataract extraction History of inguinal hernia repair History of left shoulder replacement History of tonsillectomy and adenoidectomy History of total left hip replacement (~2010) History of umbilical hernia repair History of vasectomy Family History Family History Father Cerebrovascular accident Mother Family history of malignant neoplasm of bone Pancreatic cancer Diabetes mellitus Sibling Diabetes mellitus Social History Social History Social History: Surrogate decision maker: Melina Guerrero, the patient's sister in [place]. Code status: Full code. Smoking status: Smoker, status unknown Tobacco type: cigarettes Smoking end date: 05/21/17 Additional smoking assessment comments: patient states he quit smoking last week Alcohol intake: current Drinks per week: 1 Substance use: never Additional living arrangements comments: The patient lives in his own home in [place]. He is . He has an adopted daughter whom he has not seen in many years. 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 Spiritual care concerns: No Exam Const: General: no acute distress and well developed Orientation/consciousness: oriented to person, oriented to place, ernesto
[2020-06-06 14:48] LABS: Basophils Absolute Auto 0.1 K/mm3 (0.0-0.1); Basophils Percent Auto 0.6 % (0.2-1.2); Eosinophils Absolute Auto 0.2 K/mm3 (0-0.3); Eosinophils Percent Auto 2.6 % (0-4.4); Hemoglobin 14.9 g/dL (14.0-18.0); Immature Granulocyte Absolute 0.07 K/mm3 (0.00-0.031); Immature Granulocyte Percent A 0.9 % (0-0.5); Lymphocytes Absolute Auto 1.64 K/mm3 (0.9-3.2); Lymphocytes Percent Auto 21.1 % (18.3-44.2); Mean Corpuscular HGB Conc 33.9 g/dl (32-36); Mean Corpuscular Hemoglobin 30.8 pg (26-34); Mean Corpuscular Volume 91.1 fl (80-100); Monocytes Absolute Auto 0.7 K/mm3 (0.1-0.6); Monocytes Percent Auto 8.7 % (2.6-8.5); Neutrophils Absolute Auto 5.2 K/mm3 (1.3-6.7); Neutrophils Percent Auto 66.1 % (45.5-73.1); Platelet Count Result 238 k/mm3 (150-375); Red Blood Count 4.83 M/mm3 (4.6-6.20); Red Cell Distribution Width 13.7 % (11.5-14.5); White Blood Count 7.8 K/mm3 (4.5-10.0)
[2020-06-06 14:50] LABS: Add Urine Microscopic? YES; Appearance Urine Clear (Clear); Bilirubin Urine Negative (Negative); Blood Urine Negative (Negative); Color Urine Yellow (Yellow); Glucose Urine UA Negative (Negative); Ketones Urine Negative (Negative); Leukocyte Esterase Ur Negative LEU/UL (Negative); Mucus Urine Rare /lpf; Nitrate Urine Negative (Negative); Protein Urine 1+ mg/dL (Negative); RBC Urine 0-2 /hpf (0-2); Specific Grav Ur 1.015 (1.001-1.035); Urobilinogen Urine Negative mg/dL (<2.0); WBC Urine 0-3 /hpf
[2020-06-06 14:58] LABS: Alanine Aminotransferase 21 U/L (4-50); Albumin Level 3.9 g/dL (3.5-5.1); Alkaline Phosphatase 72 U/L (38-126); Anion Gap 7 mmol/L (8-16); Aspartate Amino Transferase 26 U/L (17-59); Bilirubin,Total 0.4 mg/dL (0.2-1.3); Blood Urea Nitrogen 28 mg/dL (9-20); Calcium 9.1 mg/dL (8.4-10.2); Carbon Dioxide 26 mmol/L (22-30); Chloride 106 mmol/L (98-107); Creatine Kinase 158 U/L (55-170); Estimated CRCL calculation 45 ml/min; Estimated Glomerular Filt Rate 59; Glucose 136 mg/dL (75-110); Potassium 4.5 mmol/L (3.4-5.0); Sodium 139 mmol/L (137-145)
[2020-06-06 15:26] VITALS: BP 128/78; PULSE 84; RESP 16; O2SAT 97
== END 2020-06-06 15:30 | disposition home or self-care (01) ==
PROVIDERS: Emergency Provider Emergency Medicine; PCP Student in an Organized Health Care Education/Training Program
DX: M79.605 Pain in left leg (principal); M79.604 Pain in right leg; R51.9 Headache, unspecified; Q60.0 Renal agenesis, unilateral; M79.7 Fibromyalgia; E78.5 Hyperlipidemia, unspecified; M19.90 Unspecified osteoarthritis, unspecified site; Z87.442 Personal history of urinary calculi; Z87.11 Personal history of peptic ulcer disease; I27.20 Pulmonary hypertension, unspecified; F41.8 Other specified anxiety disorders; F20.9 Schizophrenia, unspecified; Z98.42 Cataract extraction status, left eye; Z98.41 Cataract extraction status, right eye; Z96.612 Presence of left artificial shoulder joint; Z96.642 Presence of left artificial hip joint
CPT/HCPCS: 36415; 80053; 81001; 82550; 85025; 99283

== ENCOUNTER → 2020-07-28 08:33 | Outpatient (CLI) | payer MEDICARE, SELFPAY ==
[2020-07-28 17:21] LABS: SARS-CoV-2 RNA PCR Negative
== END ==
PROVIDERS: PCP Student in an Organized Health Care Education/Training Program; Visit Provider Student in an Organized Health Care Education/Training Program
DX: Z20.822 Contact with and (suspected) exposure to COVID-19 (principal); R43.2 Parageusia
CPT/HCPCS: C9803; U0003; U0005

== ENCOUNTER 2020-10-02 12:05 | Inpatient (IN) | payer MEDICARE, SELFPAY ==
[2020-10-02] VITALS (9 sets, daily range): BP systolic 101–139; BP diastolic 72–91; PULSE 88–105; RESP 16–20; TEMP 36.6–36.7; O2SAT 95–99; BMI 28.8
--- NOTE | ~2020-10-02 | XR_ITS ---
XR chest 2V DATE: 10/02/2020 12:33 INDICATION: Weakness TECHNIQUE: AP and lateral views COMPARISON: 05/12/2020 AP and lateral chest FINDINGS: Heart size is within normal range. There is aortic ectasia and tortuosity. Moderate hyperinflation of the lungs. No pulmonary infiltrate or consolidation, pleural effusion, pul monary vascular congestion or pneumothorax is evident. Left glenohumeral joint replacement. Scoliosis and degenerative change of the thoracic and lumbar spine. There is loss of height and anter ior wedging of multiple thoracic vertebrae consistent with chronic compression fractures, stable sinc e 05/12/2020. IMPRESSION: No active disease or significant change since 05/12/2000 Reviewed, dictated and finalized at location A.
--- NOTE | 2020-10-02 12:19 | ECG_ITS ---
Measurements Intervals Sharps Rate: 104 P: 59 MN: 171 QRS: -89 QRSD: 138 T: 31 QT: 381 QTc: 503 Interpretive Statements SINUS TACHYCARDIA RIGHT BUNDLE BRANCH BLOCK LEFT ANTERIOR FASCICULAR BLOCK ABNORMAL ECG Electronically Signed On 10-02-2020 13:20:56 CDT by Mao Callejas D.O.
--- NOTE | 2020-10-02 13:00 | ED.WEAKNESS ---
HPI - Weakness General Chief complaint: Weakness Stated complaint: confusion/ trouble walking Time Seen by Provider: 10/02/20 12:12 Source: patient Mode of arrival: ambulatory Limitations: no limitations History of Present Illness HPI Narrative: 75-year-old male Presents with a complaint of generalized weakness and concerned that he might have rhabdo Patient reports that several months ago he had an episode of rhabdomyolysis felt to be related to statins which have been discontinued He currently feels similar, with mild general weakness and and achy back The weakness he is experiencing is nonfocal The only other complaint that he has is that he feels like he is not thinking as clearly as usual Patient denies headache, sore throat, cough or shortness of breath, chest pain, any abdominal pain or GI symptoms He always has a little difficulty urinating which is unchanged MD Complaint: generalized weakness and difficulty walking Related Data Home Medications Medication Instructions Recorded Confirmed citalopram 20 mg PO DAILY 10/11/19 05/13/20 finasteride 5 mg PO DAILY 10/11/19 05/13/20 temazepam [Restoril] 30 mg PO HS 10/11/19 05/13/20 duloxetine 60 mg PO DAILY 10/31/19 05/13/20 olanzapine 20 mg PO DAILY 10/31/19 05/13/20 omega 1-pcw-nzc-fish oil [Fish Oil] 1 cap PO DAILY 10/31/19 05/13/20 meloxicam 7.5 mg PO BID 10/02/20 pregabalin [Lyrica] 50 mg PO HS PRN 10/02/20 testosterone cypionate 200 mg IM ONCE 10/02/20 tizanidine 4 mg PO HS PRN 10/02/20 Allergies Allergy/AdvReac Type Severity Reaction Status Date / Time Sulfa (Sulfonamide Allergy Unknown Rash Verified 10/02/20 13:05 Antibiotics) Review of Systems Review of Systems: All systems reviewed & are unremarkable except as noted in HPI and below Constitutional: Constitutional: Denies chills, Reports fatigue, Denies fever(s), Denies headache(s) and Reports weakness Eyes: Eyes: Reports no additional eye complaints and Denies change in vision ENT: Denies headache(s) and Denies sore throat Cardiovascular: Cardiovascular: Denies chest pain and Denies dyspnea Respiratory: Respiratory: Denies cough and Denies dyspnea Gastrointestinal: Gastrointestinal: Denies abdominal pain, Denies diarrhea and Denies vomiting Genitourinary: Genitourinary: Denies hematuria, Reports oliguria, Denies dysuria and Denies urinary frequency Musculoskeletal: Musculoskeletal: Reports back pain, Reports myalgias, Denies deformity, Denies arthralgias, Denies joint swelling and Denies numbness Integumentary/Breasts: Skin/Breast: Denies rash and Denies wounds Neurologic: Denies headache(s), Denies focal weakness, Denies numbness and Reports weakness Psychiatric: Psychiatric: Reports no additional psychiatric complaints Endocrine: Endocrine: Reports no additional endocrine complaints Hematologic/Lymphatic: Hematologic/Lymphatic: Reports no additional hematologic/lymphatic complaints Allergic/Immunologic: Allergic/Immunologic: Reports no additional allergic/immunologic complaints [facility] Past Medical History Medical History Benign essential tremor Benign prostatic hyperplasia (Unknown) Congenital renal agenesis, unilateral Depression with anxiety Fibromyalgia Hypercholesterolemia Hyperlipidemia Kidney stone Osteoarthritis Peptic ulcer Proximal muscle weakness (~08/2019) Pulmonary hypertension Mild pulmonary hypertension noted on echocardiogram in July 2018 with an estimated peak RVSP of 35 to 40 millimeters of mercury. Rhabdomyolysis Hospitalized for such in February 2016, July 2018, and September 2019. Schizophrenia (Unknown) Tension headache Surgical History Surgical History History of arthroscopy of right knee (~2002) History of bilateral cataract extraction History of inguinal hernia repair History of left shoulder replacement History of tonsillectomy and adenoi
[2020-10-02 13:41] LABS: Basophils Percent Auto 0.2 % (0.2-1.2); Eosinophils Percent Auto 0.1 % (0-4.4); Hematocrit 45.8 % (42.0-52.0); Immature Granulocyte Absolute 0.05 K/mm3 (0.00-0.031); Immature Granulocyte Percent A 0.4 % (0-0.5); Lymphocytes Absolute Auto 1.44 K/mm3 (0.9-3.2); Lymphocytes Percent Auto 12.5 % (18.3-44.2); Mean Corpuscular HGB Conc 32.8 g/dl (32-36); Mean Corpuscular Hemoglobin 29.6 pg (26-34); Mean Corpuscular Volume 90.5 fl (80-100); Mean Platelet Volume 10.4 fl (7.4-10.4); Monocytes Percent Auto 8.9 % (2.6-8.5); Neutrophils Percent Auto 77.9 % (45.5-73.1); Platelet Count Result 212 k/mm3 (150-375); Red Blood Count 5.06 M/mm3 (4.6-6.20); Red Cell Distribution Width 13.8 % (11.5-14.5); White Blood Count 11.5 K/mm3 (4.5-10.0)
[2020-10-02 13:48] LABS: Add Urine Microscopic? YES; Appearance Urine Clear (Clear); Bilirubin Urine Negative (Negative); Blood Urine 2+ (Negative); Color Urine Yellow (Yellow); Glucose Urine UA Negative (Negative); Ketones Urine 1+ mg/dL (Negative); Leukocyte Esterase Ur Negative LEU/UL (Negative); Mucus Urine Few /lpf; Nitrate Urine Negative (Negative); Protein Urine 3+ mg/dL (Negative); Specific Grav Ur 1.026 (1.001-1.035); Squamous Epithelial Cell Urine Rare /hpf (Few); Urobilinogen Urine Negative mg/dL (<2.0); WBC Urine 0-3 /hpf
[2020-10-02 13:53] LABS: Alanine Aminotransferase 35 U/L (4-50); Albumin Level 4.3 g/dL (3.5-5.1); Alkaline Phosphatase 83 U/L (38-126); Anion Gap 7 mmol/L (8-16); Aspartate Amino Transferase 127 U/L (17-59); Bilirubin,Total 0.9 mg/dL (0.2-1.3); Blood Urea Nitrogen 36 mg/dL (9-20); Calcium 9.5 mg/dL (8.4-10.2); Carbon Dioxide 29 mmol/L (22-30); Chloride 104 mmol/L (98-107); Estimated CRCL calculation 41 ml/min; Estimated Glomerular Filt Rate 54; Glucose 114 mg/dL (75-110); Potassium 4.3 mmol/L (3.4-5.0); Sodium 140 mmol/L (137-145)
[2020-10-02 14:05] LABS: Troponin I 0.016 ng/mL (0.000-0.034)
[2020-10-02] MEDS: ACETAMINOPHEN 500 MG TABLET 1000 MG PO (14:09)
[2020-10-02 14:45] LABS: Thyroid Stimulating Hormone Reflex 0.847 uIU/mL (0.465-4.68)
[2020-10-02 14:57] LABS: Creatine Kinase 4599 U/L (55-170)
[2020-10-02] MEDS: LACTATED RINGERS 1,000 ML 999 ML IV CONT (14:58)
[2020-10-02] MEDS: LACTATED RINGERS 1,000 ML 200 ML IV CONT (18:10)
--- NOTE | 2020-10-02 18:12 | ADMGEN ---
This patient, Tammie Harp, was admitted to Medical Room 349-01. Patient/family oriented to hospital policies and general routines including ID bracelet, bed and alarms, visiting hours, pain management, procedures, bathroom and other care routines, personal items, smoking policy, room service/diet, and visiting hours. Information on how to activate the Rapid Response Team has been discussed. Patient/Family are encouraged to report perceived risks to care and to ask questions if they do not understand what they are told or what they should do.
--- NOTE | 2020-10-02 20:30 | PM.IMHP ---
H&P: HPI History of Present Illness Date/Time: 10/02/20 20:30 Chief Complaint: Weakness and concerns ?that I have rhabdo again.? Narrative: This is a pleasant 75-year-old male with schizoaffective disorder, depression, anxiety, benign prostatic hyperplasia, and hypercholesterolemia who presented to the emergency department earlier today with complaints of weakness and concerns ?that I have rhabdo again.? He was reportedly in his usual state of health yesterday however when he awoke this morning he was weak and had aching in his low back and legs. He also feels that he is not thinking as clearly as usual. Apparently the symptoms are similar to the times he has had rhabdomyolysis and in fact his CK today was elevated at nearly 5000. This will be his 3rd admission in less than a year for rhabdomyolysis. At the outset his statin was discontinued though he did have another episode of rhabdomyolysis thereafter. He is on Seroquel and Zyprexa at home, both which can rarely cause as rhabdomyolysis and with his last episode his Seroquel dose was decreased after discussing with Dr. Sandoval, his psychiatrist. He has not had any other change in medication recently. He denies ingestion of more medications than prescribed. He has not had any falls or injuries recently. He denies a sedentary lifestyle and typically is up and about without issue. No strenuous activity. He has not had muscle rigidity, tachycardia, or fever. He has not noticed a change in urine output. Review of Systems Review of Systems: Narrative: Twelve systems were reviewed with pertinent positives and negatives as per HPI. No fever or sweats. He is a bit chilly but that does not sound as though that is unusual for the patient. He denies recent cold and flu symptoms. No exposure to those positive for COVID-19. Appetite has been good. No nausea, vomiting, or diarrhea. No dysuria. Except as documented, all other systems were reviewed and are negative. [facility] Past Medical History Medical History (Updated 10/02/20 @ 22:58 by Nakita Mohan PA-C) Benign essential tremor Benign prostatic hyperplasia (Unknown) Congenital renal agenesis, unilateral Depression with anxiety Fibromyalgia Hypercholesterolemia Hyperlipidemia Kidney stone Osteoarthritis Peptic ulcer Pulmonary hypertension Mild pulmonary hypertension noted on echocardiogram in July 2018 with an estimated peak RVSP of 35 to 40 millimeters of mercury. Rhabdomyolysis Hospitalized for such in February 2016, July 2018, and September 2019. Schizophrenia (Unknown) Tension headache Surgical History Surgical History History of arthroscopy of right knee (~2002) History of bilateral cataract extraction History of inguinal hernia repair History of left shoulder replacement History of tonsillectomy and adenoidectomy History of total left hip replacement (~2010) History of umbilical hernia repair History of vasectomy Family History Family History Father Cerebrovascular accident Mother Family history of malignant neoplasm of bone Pancreatic cancer Diabetes mellitus Sibling Diabetes mellitus Social History Social History (Updated 10/02/20 @ 22:55 by Nakita Mohan PA-C) Social History: Surrogate decision maker: Susie Elam, niece who lives in [place]. Code status: Full code. Smoking status: Former smoker Additional smoking assessment comments: Patient states he smokes off and on and does not qualify. Alcohol intake: current Drinks per week: 1 Substance use: never Additional living arrangements comments: The patient lives in his own home in [place]. He is . He has an adopted daughter whom he has not seen in many years. 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 Gender identity (if verbalized by the pat
[2020-10-02] MEDS: ACETAMINOPHEN 325 MG TABLET 650 MG PO (20:55)
[2020-10-02] MEDS: LACTATED RINGERS 1,000 ML 150 ML IV CONT (23:15)
[2020-10-02 23:50] LABS: Creatine Kinase 2910 U/L (55-170)
[2020-10-03] MEDS: TEMAZEPAM (*CRX) 15 MG CAPSULE 30 MG PO ×2 (00:39→20:01)
[2020-10-03] MEDS: FINASTERIDE 5 MG TABLET PO ×2 (00:40→20:00)
[2020-10-03 04:39] VITALS: BP 112/79; PULSE 85; RESP 18; TEMP 36.6; O2SAT 96
[2020-10-03] MEDS: LACTATED RINGERS 1,000 ML 150 ML IV CONT ×3 (06:48→20:51)
[2020-10-03 07:00] LABS: Alanine Aminotransferase 34 U/L (4-50); Albumin Level 3.2 g/dL (3.5-5.1); Alkaline Phosphatase 51 U/L (38-126); Anion Gap 2 mmol/L (8-16); Aspartate Amino Transferase 105 U/L (17-59); Blood Urea Nitrogen 33 mg/dL (9-20); Calcium 8.5 mg/dL (8.4-10.2); Carbon Dioxide 30 mmol/L (22-30); Chloride 106 mmol/L (98-107); Creatine Kinase 1517 U/L (55-170); Estimated CRCL calculation 53 ml/min; Estimated Glomerular Filt Rate > 60; Glucose 92 mg/dL (75-110); Magnesium 2.1 mg/dL (1.6-2.3); Potassium 4.1 mmol/L (3.4-5.0); Sodium 138 mmol/L (137-145)
--- NOTE | 2020-10-03 09:22 | PM.IMPN ---
Progress Note: A&P Assessment and Plan (1) Rhabdomyolysis: Code(s): M62.82 - Rhabdomyolysis Status: Acute Assessment and Plan: Total CK is 4600 on admission. AST 127. 2+ blood but no red cells all consistent with rhabdomyolysis. He has been started on IV fluids. Repeat total CK improving. AST trending downward. Urine proteinuria not unexpected. Creatinine mildly elevated on admission to 1.3 but improved today. 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 Olanzapine and Seroquel can cause rhabdomyolysis. Continue IV fluids. Will discuss with pathology about utility of a muscle biopsy and when with the appropriate time be to perform this. (2) Proteinuria: Code(s): R80.9 - Proteinuria, unspecified Status: Acute Assessment and Plan: Patient noted to have proteinuria but not unexpected given the rhabdomyolysis. Admission, proteinuria was 3+ but negative on repeat once the rhabdomyolysis cleared. (3) Psychiatric illness: Onset Date: Unknown Code(s): F99 - Mental disorder, not otherwise specified Status: Acute Assessment and Plan: Mood stable. Seroquel and olanzapine are currently on hold. Will continue to hold these for now and discuss with his psychiatrist in the morning. Reluctant to keep patient off these medications for prolonged period. (4) Benign prostatic hyperplasia: Onset Date: Unknown Code(s): N40.0 - Benign prostatic hyperplasia without lower urinary tract symptoms Status: Acute Assessment and Plan: Stable. Continue Proscar. (5) DVT prophylaxis: Code(s): Z29.9 - Encounter for prophylactic measures, unspecified Status: Acute Assessment and Plan: SCDs Subjective Date/time seen: 10/03/20 09:22 Interval history: 75yo male with recurrent rhabdomyolysis here for body aches and found to have another recurrence. Patient;s last episode was in April and his Seroquel dose was decreased after discussion with his psychiatrist. No change in medications since that last discharge. Still feels weak and achy without change. He denies he needs therapy. Exam Narrative: Exam Narrative: AF 97.8 112/79 85 18 96% ra Gen - NARD Chest - CTA bilaterally, nml RR CV - RRR S1/S2 Abd - Soft, NT/ND, Positive BS Ext - No pedal edema Neuro - Alert and oriented. Nonfocal exam. Psych - Nml mood and affect Skin - Warm and dry Objective Data Vital Signs Vital Signs: Vital Signs - 24 hr 10/02/20 12:20 10/02/20 12:22 10/02/20 12:55 Temperature 97.8 F Pulse Rate 105 H 101 H 96 Respiratory Rate 18 19 Blood Pressure 128/82 113/72 Pulse Oximetry 95 97 10/02/20 13:59 10/02/20 14:39 10/02/20 16:09 Temperature 97.8 F Pulse Rate 94 91 Respiratory Rate 18 20 Blood Pressure 101/82 139/91 H Pulse Oximetry 96 99 10/02/20 16:59 10/02/20 18:13 10/02/20 19:28 Temperature 98.0 F 98.1 F Pulse Rate 96 90 88 Respiratory Rate 20 16 18 Blood Pressure 121/76 131/79 128/84 Pulse Oximetry 97 98 98 10/03/20 04:39 Temperature 97.8 F Pulse Rate 85 Respiratory Rate 18 Blood Pressure 112/79 Pulse Oximetry 96 Intake/Output Intake/Output: Intake & Output 09/30/20 10/01/20 10/02/20 10/03/20 23:59 23:59 23:59 23:59 Intake Total 1999 1350 Output Total 700 Balance 1999 650 Meds/Results Medications: Active Medications Generic Name Dose Route Start Last Admin Trade Name Freq PRN Reason Stop Dose Admin Acetaminophen 650 mg 10/02/20 16:02 10/02/20 20:55 Acetaminophen 325 Mg Tablet PO 650 mg Q4H PRN Administration Mild Pain (1-3) or Fever Finasteride 5 mg 10/02/20 23:30 10/03/20 00:40 Finasteride 5 Mg Tablet PO 5 mg HS ELISABETH Administration Fish Oil 1 gm 10/03/20 09:00 [place] 3 Polyunsat Fatty Acids 1 Gm Cap PO DAILY ELISABETH Lactated Ringer's 1,000 mls @ 150 mls/hr 10/02/20 16:05 10/03/20 06:48 Lr - Lactated Ringer
[2020-10-03] MEDS: MELOXICAM 7.5 MG TABLET PO ×2 (10:04→17:02)
[2020-10-03] MEDS: OMEGA 3 POLYUNSAT FATTY ACIDS 1 GM CAP PO (10:04)
[2020-10-03] MEDS: ACETAMINOPHEN 325 MG TABLET 650 MG PO (14:02)
[2020-10-03 15:28] VITALS: BP 111/65; PULSE 75; RESP 16; TEMP 36.6; O2SAT 96
[2020-10-03 22:00] VITALS: BP 122/65; PULSE 67; RESP 16; TEMP 36.2; O2SAT 97
[2020-10-04] MEDS: LACTATED RINGERS 1,000 ML 150 ML IV CONT ×2 (03:36→10:19)
[2020-10-04 06:00] VITALS: BP 118/69; PULSE 69; RESP 18; TEMP 36.3; O2SAT 97
[2020-10-04 06:33] LABS: Alanine Aminotransferase 29 U/L (4-50); Albumin Level 3.1 g/dL (3.5-5.1); Alkaline Phosphatase 49 U/L (38-126); Anion Gap 1 mmol/L (8-16); Aspartate Amino Transferase 64 U/L (17-59); Bilirubin,Total 0.6 mg/dL (0.2-1.3); Blood Urea Nitrogen 23 mg/dL (9-20); Calcium 8.3 mg/dL (8.4-10.2); Carbon Dioxide 31 mmol/L (22-30); Chloride 107 mmol/L (98-107); Creatine Kinase 463 U/L (55-170); Estimated CRCL calculation 53 ml/min; Estimated Glomerular Filt Rate > 60; Glucose 92 mg/dL (75-110); Potassium 4.3 mmol/L (3.4-5.0); Sodium 139 mmol/L (137-145)
[2020-10-04] MEDS: ACETAMINOPHEN 325 MG TABLET 650 MG PO (07:50)
[2020-10-04] MEDS: MELOXICAM 7.5 MG TABLET PO ×2 (07:50→16:34)
[2020-10-04] MEDS: OMEGA 3 POLYUNSAT FATTY ACIDS 1 GM CAP PO (08:12)
[2020-10-04 08:14] VITALS: RESP 18; O2SAT 97
[2020-10-04 14:00] VITALS: BP 124/61; PULSE 74; RESP 16; TEMP 36.7; O2SAT 95
--- NOTE | 2020-10-04 15:40 | PM.DS ---
DS: Admitting Diagnosis Admitting Diagnosis Admitting Diagnosis: Weak with back and leg pain DS: Discharge Diagnosis Discharge Diagnosis (1) Rhabdomyolysis: Code(s): M62.82 - Rhabdomyolysis Status: Acute Assessment and Plan: Total CK is 4600 on admission. AST 127. 2+ blood but no red cells all consistent with rhabdomyolysis. He was started on IV fluids. Repeat total CK itrended down to 463. AST trending downward. to 64. Urine proteinuria not unexpected. Creatinine mildly elevated on admission to 1.3 but improved to 1.0. 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 He has had rhabdomyolysis Feb 2016, July 2018, September 2019, Apr 2020 and now. Olanzapine and Seroquel can cause rhabdomyolysis. Spoke with pathology about utility of a muscle biopsy but they recommended having this done at a tertiary care center. I have a call out to the PCP to discuss so he can arrange for this. Spoke with Dr Sandoval (Psychiatry) and case discussed. He agreed to decrease the Seroquel to 100mg QHS and continue the Olanzapine for now. Patient denies any HI/SI, visual or auditory hallucinations. (2) Proteinuria: Code(s): R80.9 - Proteinuria, unspecified Status: Acute Assessment and Plan: Patient noted to have proteinuria but not unexpected given the rhabdomyolysis. Normal renal function and normal serum protein so doubt nephrotic proteinuria. Follow up as outpatient (3) Psychiatric illness: Onset Date: Unknown Code(s): F99 - Mental disorder, not otherwise specified Status: Acute Assessment and Plan: Mood stable. No concerning psychiatric symptoms. Seroquel and olanzapine were held. Discussed with his psychiatrist this morning. Will resume olanapine at curent dose but decrease Seroquel to 100mg qhs. Patient to follow up with Dr Goldsmith (4) Benign prostatic hyperplasia: Onset Date: Unknown Code(s): N40.0 - Benign prostatic hyperplasia without lower urinary tract symptoms Status: Acute Assessment and Plan: Stable. We continued his Proscar. DS: Summary Hospital Course Reason for hospitalization: 75yo male here for weakness and found to have rhabdomyolysis. Please see H&P for detials. Hospital Course: Please see above for details of hospital course Status at Discharge Cognitive/behavioral status at discharge: stable Time Spent with Patient Time attestation: Total time spent providing and/or coordinating discharge services: 32 minutes Time spent: Greater than 30 minutes Specific discharge activities: Discharge instructions discussed with patient in detail. Discussed case with Psychiatry earlier today. Attempting to contact the primary care doctor to arrange for muscle biopsy Exam Narrative: Exam Narrative: AF 98.0 124/61 74 16 95% ra Gen - NARD Chest - CTA bilaterally, nml RR CV - RRR S1/S2 Abd - Soft, NT/ND, Positive BS Ext - No pedal edema Psych - Nml mood and affect Skin - Warm and dry DS: Data Data Completed and Pending Labs on day of discharge: Labs from last 24 hours 10/04/20 05:57 Sodium 139 Potassium 4.3 Chloride 107 Carbon Dioxide 31 H Anion Gap 1 L BUN 23 H D Creatinine 1.00 Estim Creat Clear Calc 53 Estimated GFR > 60 Glucose 92 Calcium 8.3 L Total Bilirubin 0.6 AST 64 H ALT 29 Alkaline Phosphatase 49 Total Creatine Kinase 463 H Total Protein 6.0 L Albumin 3.1 L Discharge Plan Discharge Attending physician on discharge: James Hernandez Discharging Clinician: James Hernandez Anticipated Discharge Date/Time: 10/04/20 16:09 Patient Disposition: Home, Self-Care Activity: as tolerated Diet: heart healthy Discharge Instructions: Please avoid large gathering, wear face coverings in public and practice social distance. Please drink plenty of free water. Take precautions to avoid falls. Follow-up with your Primary Care Provider in 1-
== END 2020-10-04 17:00 | disposition home or self-care (01) | DRG 558 ==
LOC: ANHED 16:35 → ANH3MED 16:56
PROVIDERS: Physician Assistant; Admitting Provider Internal Medicine; Emergency Provider Emergency Medicine; PCP Student in an Organized Health Care Education/Training Program; Visit Provider Internal Medicine
DX: M62.82 Rhabdomyolysis (principal); R80.9 Proteinuria, unspecified; F99 Mental disorder, not otherwise specified; N40.0 Benign prostatic hyperplasia without lower urinary tract symptoms; G25.0 Essential tremor; F41.8 Other specified anxiety disorders; M79.7 Fibromyalgia; I27.20 Pulmonary hypertension, unspecified; M19.90 Unspecified osteoarthritis, unspecified site; E78.5 Hyperlipidemia, unspecified; Z79.899 Other long term (current) drug therapy; Z87.891 Personal history of nicotine dependence; Z98.42 Cataract extraction status, left eye; Z98.41 Cataract extraction status, right eye
CPT/HCPCS: 36415; 71046; 80048; 80053; 80076; 81001; 82550; 83735; 84443; 84484; 85025; 93005; 96360; 99285; A9270; J7120

== ENCOUNTER → 2020-10-26 12:14 | Outpatient (CLI) | payer MEDICARE, SELFPAY ==
--- NOTE | ~2020-10-26 | DEXA_ITS ---
Bone Density Report Name: Tammie Harp Age: 75 Sex: Male Ethnicity: White Date of : 1945 Indication: screening for osteoporosis; height loss; Referring Provider: Kierra, Antwon Study: Bone densitometry was performed. Exam Date: October 26, 2020 Accession number: [id number] Bone Density: Region BMD T-score Z-score Classification AP Spine (L2, L3, L4) 1.448 3.0 4.1 Normal Femoral Neck (Right) 0.727 -1.5 -0.2 Osteopenia Total Hip (Right) 0.923 -0.7 0.1 Normal World Health Organization criteria for BMD impression classify patients as: Normal (T-score at or above -1.0), Osteopenia (T-score between -1.0 and -2.5), or Osteoporosis (T-score at or below -2.5). 10-year Fracture Risk(1): Major Osteoporotic Fracture 6.6% Hip Fracture 2.7% Reported Risk Factors: [place] (), Neck BMD=0.727, BMI=30.7, smoking (1) FRAX(R) Version 3.08. Fracture probability calculated for an untreated patient. Fracture probability may be lower if the patient has received treatment. Previous Exams: Region Exam Age BMD T-score BMD Change BMD Change Date g/cm2 vs Baseline vs Previous AP Spine(L2, L3, L4) 10/26/2020 75 1.448 3.0 0.216 0.216 03/17/2011 65 1.232 1.1 Total Hip(Right) 10/26/2020 75 0.923 -0.7 -0.007 -0.007 03/17/2011 65 0.930 -0.7 *Denotes significance at 95% confidence level, LSC for AP Spine = 0.022 g/cm2, LSC for Total Hip = 0.027 g/cm2 Clinical Information Provided by Patient: Smokes Patient maximum height was 69.0 No regular weight bearing exercise Drinks caffeinated beverages Impression: The patient has low bone mass, based on the Right Femoral Neck T-score. The patient has an estimated ten-year risk of hip fracture of 2.7% and an estimated ten-year risk of major fracture of 6.6%, based on the WHO FRAX algorithm. The patient has risk factors, including: smoking. No significant bone loss was observed. Discussion: BONE DENSITY IS LOW AT ONE OR MORE SKELETAL SITES. This patient's lowest T-score is low at one or more skeletal sites. It meets the World Health Organization's (WHO) criteria for ?low bone mass? (T-score between -1.0 and -2.5). The patient's 10-year risk of fracture as calculated by FRAX is less than the threshold where pharmacological therapy is recommended by the National Osteoporosis Foundation (NOF). However, all treatment decisions require clinical judgment and consideration of individual patient factors, including patient preferences, comorbidities,
== END ==
PROVIDERS: PCP Student in an Organized Health Care Education/Training Program; Visit Provider Student in an Organized Health Care Education/Training Program
DX: M81.0 Age-related osteoporosis without current pathological fracture (principal); M85.851 Other specified disorders of bone density and structure, right thigh
CPT/HCPCS: 77080

== ENCOUNTER 2020-11-10 11:31 | Emergency (ER) | payer MEDICARE, SELFPAY ==
[2020-11-10 11:33] VITALS: BP 107/68; PULSE 86; RESP 16; TEMP 36.9; O2SAT 96
--- NOTE | 2020-11-10 11:55 | ED.GENADULT ---
HPI - General Adult General Chief complaint: Unspecified Stated complaint: I have rhabdo Time Seen by Provider: 11/10/20 11:44 Source: patient Mode of arrival: ambulatory Limitations: no limitations History of Present Illness HPI narrative: Patient is 75 years old white male presents with possible rhabdomyolysis. Patient woke up this morning with discomfort at the groin, medial side of the thighs, and the buttock area bilaterally. Which is consistent with previous history of rhabdomyolysis. Patient had intercourse last night. Patient denies any fever, chills, nausea, vomiting, abdominal pain, back pain, chest pain or shortness of breath. Related Data Home Medications Medication Instructions Recorded Confirmed citalopram 20 mg PO DAILY 10/11/19 10/02/20 finasteride 5 mg PO HS 10/11/19 10/02/20 temazepam [Restoril] 30 mg PO HS 10/11/19 10/02/20 duloxetine 60 mg PO DAILY 10/31/19 10/02/20 olanzapine 20 mg PO HS 10/31/19 10/02/20 omega 8-jqi-ycn-fish oil [Fish Oil] 1 cap PO DAILY 10/31/19 10/02/20 meloxicam 7.5 mg PO BID 10/02/20 10/02/20 pregabalin [Lyrica] 50 mg PO DAILY PRN 10/02/20 10/02/20 Allergies Allergy/AdvReac Type Severity Reaction Status Date / Time Sulfa (Sulfonamide Allergy Unknown Rash Verified 11/10/20 11:44 Antibiotics) Review of Systems Review of Systems: Narrative: CONSTITUTIONAL: Denies fever, chills, or sweats. EYES: Denies visual changes, redness, or discharge. ENT: Denies rhinorrhea, congestion, sore throat, or otalgia. CARDIOVASCULAR: Denies chest pain, palpitations, or edema. RESPIRATORY: Denies cough or dyspnea. GASTROINTESTINAL: Denies abdominal pain, nausea, vomiting, or diarrhea. GENITOURINARY: Denies dysuria or hematuria. SKIN: Denies rash or itching. MUSCULOSKELETAL: Denies back pain, joint pain, or myalgia. NEUROLOGIC: Denies headache, numbness, or weakness. PSYCHIATRIC: Denies anxiety or depression. [facility] Past Medical History Medical History Benign essential tremor Benign prostatic hyperplasia (Unknown) Congenital renal agenesis, unilateral Depression with anxiety Fibromyalgia Hypercholesterolemia Hyperlipidemia Kidney stone Osteoarthritis Peptic ulcer Pulmonary hypertension Mild pulmonary hypertension noted on echocardiogram in July 2018 with an estimated peak RVSP of 35 to 40 millimeters of mercury. Rhabdomyolysis Hospitalized for such in February 2016, July 2018, and September 2019. Schizophrenia (Unknown) Tension headache Surgical History Surgical History History of arthroscopy of right knee (~2002) History of bilateral cataract extraction History of inguinal hernia repair History of left shoulder replacement History of tonsillectomy and adenoidectomy History of total left hip replacement (~2010) History of umbilical hernia repair History of vasectomy Family History Family History Father Cerebrovascular accident Mother Family history of malignant neoplasm of bone Pancreatic cancer Diabetes mellitus Sibling Diabetes mellitus Social History Social History Social History: Surrogate decision maker: armando Terrell who lives in [place]. Code status: Full code. Smoking status: Former smoker Additional smoking assessment comments: Patient states he smokes off and on and does not qualify. Alcohol intake: current Drinks per week: 1 Substance use: never Additional living arrangements comments: The patient lives in his own home in [place]. He is . He has an adopted daughter whom he has not seen in many years. 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. Gender identity (if verbalized by the patient): Male Spiritual care concerns: No Exam Narrative: Exam
[2020-11-10] MEDS: SODIUM CHLORIDE 0.9% IV 1,000 ML 999 ML IV CONT (12:12)
[2020-11-10 12:23] LABS: Basophils Absolute Auto 0.1 K/mm3 (0.0-0.1); Basophils Percent Auto 0.6 % (0.2-1.2); Eosinophils Absolute Auto 0.1 K/mm3 (0-0.3); Eosinophils Percent Auto 1.2 % (0-4.4); Hematocrit 44.9 % (42.0-52.0); Hemoglobin 14.7 g/dL (14.0-18.0); Immature Granulocyte Absolute 0.07 K/mm3 (0.00-0.031); Immature Granulocyte Percent A 0.9 % (0-0.5); Lymphocytes Absolute Auto 1.72 K/mm3 (0.9-3.2); Lymphocytes Percent Auto 21.2 % (18.3-44.2); Mean Corpuscular HGB Conc 32.7 g/dl (32-36); Mean Corpuscular Hemoglobin 29.9 pg (26-34); Mean Corpuscular Volume 91.3 fl (80-100); Monocytes Absolute Auto 0.7 K/mm3 (0.1-0.6); Monocytes Percent Auto 8.4 % (2.6-8.5); Neutrophils Absolute Auto 5.5 K/mm3 (1.3-6.7); Neutrophils Percent Auto 67.7 % (45.5-73.1); Platelet Count Result 219 k/mm3 (150-375); Red Blood Count 4.92 M/mm3 (4.6-6.20); Red Cell Distribution Width 14.3 % (11.5-14.5); White Blood Count 8.1 K/mm3 (4.5-10.0)
[2020-11-10 12:40] LABS: Alanine Aminotransferase 17 U/L (4-50); Alkaline Phosphatase 74 U/L (38-126); Anion Gap 8 mmol/L (8-16); Aspartate Amino Transferase 28 U/L (17-59); Bilirubin,Total 0.4 mg/dL (0.2-1.3); Blood Urea Nitrogen 21 mg/dL (9-20); Calcium 9.2 mg/dL (8.4-10.2); Carbon Dioxide 26 mmol/L (22-30); Chloride 107 mmol/L (98-107); Creatine Kinase 123 U/L (55-170); Estimated CRCL calculation 48 ml/min; Estimated Glomerular Filt Rate 59; Glucose 115 mg/dL (75-110); Potassium 4.1 mmol/L (3.4-5.0); Sodium 141 mmol/L (137-145)
[2020-11-10 13:35] VITALS: BP 144/72; PULSE 70; RESP 18; TEMP 37.1; O2SAT 98
== END 2020-11-10 13:35 | disposition home or self-care (01) ==
PROVIDERS: Emergency Medicine; Emergency Provider Emergency Medicine; PCP Student in an Organized Health Care Education/Training Program
DX: M79.18 Myalgia, other site (principal); E78.5 Hyperlipidemia, unspecified; Z87.891 Personal history of nicotine dependence
CPT/HCPCS: 36415; 80053; 82550; 85025; 96360; 99283; J7030

== ENCOUNTER 2020-12-16 01:51 | Day surgery (SDC) | payer MEDICARE, SELFPAY ==
[2020-12-09 11:22] VITALS: BMI 30.6
[2020-12-16 10:04] VITALS: BP 132/72; PULSE 88; RESP 18; TEMP 36.6; O2SAT 98; BMI 29.8
[2020-12-16] MEDS: LACTATED RINGERS 1,000 ML 30 ML IV CONT (10:09)
--- NOTE | 2020-12-16 10:27 | WPDANESEPPF ---
Anes - Initial Pre Proc Eval Procedure: Operation Date: 12/16/20 10:00 Proposed Procedures p Screening Colonoscopy - Prasanth Gómez MD Date/Time: 12/16/20 10:27 Surgeon: Prasanth Gómez MD Pre Op Diagnosis: hx of colon polyps Patient Data Age: 75 Gender: M Height: 1.68 m Weight: 83.8 kg Last Vital Signs Temp 36.6 C 12/16/20 10:04 Pulse 88 12/16/20 10:04 Resp 18 12/16/20 10:04 BP 132/72 12/16/20 10:04 Pulse Ox 98 12/16/20 10:04 Allergies Allergy/AdvReac Type Severity Reaction Status Date / Time Sulfa (Sulfonamide Allergy Intermediate Rash Verified 12/16/20 10:00 Antibiotics) Home Medications Medication Instructions Recorded Confirmed Type citalopram 20 mg PO DAILY 10/11/19 12/09/20 History finasteride 5 mg PO HS 10/11/19 12/09/20 History temazepam [Restoril] 30 mg PO HS 10/11/19 12/09/20 History duloxetine 60 mg PO DAILY 10/31/19 12/09/20 History olanzapine 20 mg PO HS 10/31/19 12/09/20 History omega 2-efc-vcq-fish oil [Fish Oil] 1 cap PO DAILY 10/31/19 12/09/20 History meloxicam 7.5 mg PO BID PRN 10/02/20 12/09/20 History pregabalin [Lyrica] 50 mg PO DAILY PRN 10/02/20 12/09/20 History quetiapine [Seroquel] 100 mg PO HS #30 tablet 10/04/20 12/09/20 Rx Patient hx anesthesia problems: none Family hx anesthesia problems: none PMFSH Past Medical History Medical History Benign essential tremor Benign prostatic hyperplasia (Unknown) Congenital renal agenesis, unilateral Depression with anxiety Fibromyalgia Hypercholesterolemia Hyperlipidemia Kidney stone Osteoarthritis Peptic ulcer Pulmonary hypertension Mild pulmonary hypertension noted on echocardiogram in July 2018 with an estimated peak RVSP of 35 to 40 millimeters of mercury. Rhabdomyolysis Hospitalized for such in February 2016, July 2018, and September 2019. Schizophrenia (Unknown) Tension headache Surgical History Surgical History History of arthroscopy of right knee (~2002) History of bilateral cataract extraction History of inguinal hernia repair History of left shoulder replacement History of tonsillectomy and adenoidectomy History of total left hip replacement (~2010) History of umbilical hernia repair History of vasectomy Family History Family History Father Cerebrovascular accident Mother Family history of malignant neoplasm of bone Pancreatic cancer Diabetes mellitus Sibling Diabetes mellitus Social History Social History Social History: Surrogate decision maker: armando Terrell who lives in [place]. Code status: Full code. Smoking packs per day: 1 Smoking cigarettes per day: 20.0 Years smoked: 50 Smoking pack-years: 50.00 Smoking status: Former smoker Tobacco type: cigarettes and cigars Additional smoking assessment comments: CIGARS OCC. Alcohol intake: current Drinks per week: 2 Substance use: never Substance use type: does not use Living arrangements: alone Additional living arrangements comments: The patient lives in his own home in [place]. He is . He has an adopted daughter whom he has not seen in many years. 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 Gender identity (if verbalized by the patient): Male Spiritual care concerns: No Anes - Eval Final PreProcedure Day of Procedure 12/16/20 10:27 Patient weight: overweight Heart: regular rate and rhythm Lungs: clear to auscultation Airway: Mallampati scale class 1 Neurological: alert and oriented Last oral intake: >/= 8 hours ASA classification: III Emergent: no Anesthetic plan: proceed Anesthesia type and monitoring: general GIVS and standard monitoring Informed Consent: The patient's anesthetic
--- NOTE | 2020-12-16 10:35 | PM.HPGS ---
History of Present Illness History of Present Illness Consent: Risks, benefits, and alternatives have been discussed and questions answered. Patient agrees to proceed with procedure. Chief complaint: hx of colon polyps Narrative: Tammie Harp is a 75 year old male with a history of colon polyps. Review of Systems Review of Systems: All systems reviewed & are unremarkable except as noted in HPI and below PMFSH Past Medical History Medical History Benign essential tremor Benign prostatic hyperplasia (Unknown) Congenital renal agenesis, unilateral Depression with anxiety Fibromyalgia Hypercholesterolemia Hyperlipidemia Kidney stone Osteoarthritis Peptic ulcer Pulmonary hypertension Mild pulmonary hypertension noted on echocardiogram in July 2018 with an estimated peak RVSP of 35 to 40 millimeters of mercury. Rhabdomyolysis Hospitalized for such in February 2016, July 2018, and September 2019. Schizophrenia (Unknown) Tension headache Surgical History Surgical History History of arthroscopy of right knee (~2002) History of bilateral cataract extraction History of inguinal hernia repair History of left shoulder replacement History of tonsillectomy and adenoidectomy History of total left hip replacement (~2010) History of umbilical hernia repair History of vasectomy Family History Family History Father Cerebrovascular accident Mother Family history of malignant neoplasm of bone Pancreatic cancer Diabetes mellitus Sibling Diabetes mellitus Social History Social History Social History: Surrogate decision maker: Susie Elam, niece who lives in [place]. Code status: Full code. Smoking packs per day: 1 Smoking cigarettes per day: 20.0 Years smoked: 50 Smoking pack-years: 50.00 Smoking status: Former smoker Tobacco type: cigarettes and cigars Additional smoking assessment comments: CIGARS OCC. Alcohol intake: current Drinks per week: 2 Substance use: never Substance use type: does not use Living arrangements: alone Additional living arrangements comments: The patient lives in his own home in [place]. He is . He has an adopted daughter whom he has not seen in many years. 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 Gender identity (if verbalized by the patient): Male Spiritual care concerns: No Meds Home Medications and Allergies Home Medications Medication Instructions Recorded Confirmed Type citalopram 20 mg PO DAILY 10/11/19 12/09/20 History finasteride 5 mg PO HS 10/11/19 12/09/20 History temazepam [Restoril] 30 mg PO HS 10/11/19 12/09/20 History duloxetine 60 mg PO DAILY 10/31/19 12/09/20 History olanzapine 20 mg PO HS 10/31/19 12/09/20 History omega 0-gyh-rai-fish oil [Fish Oil] 1 cap PO DAILY 10/31/19 12/09/20 History meloxicam 7.5 mg PO BID PRN 10/02/20 12/09/20 History pregabalin [Lyrica] 50 mg PO DAILY PRN 10/02/20 12/09/20 History quetiapine [Seroquel] 100 mg PO HS #30 tablet 10/04/20 12/09/20 Rx Allergies Allergy/AdvReac Type Severity Reaction Status Date / Time Sulfa (Sulfonamide Allergy Intermediate Rash Verified 12/16/20 10:00 Antibiotics) Vital Signs Vital Signs - 24 hr 12/16/20 10:04 Temperature 36.6 C Pulse Rate 88 Respiratory Rate 18 Blood Pressure 132/72 Pulse Oximetry 98 Exam Resp: Auscultation: clear to auscultation bilaterally Cardio: Rate: regular rate Rhythm: regular rhythm GI: GI Palp: Yes Soft to palpation and No Tenderness to palpation present (GI) Assessment and Plan Assessment and plan (1) Personal history of colonic polyps: Code(s): Z86.010 - Personal history of colonic polyps Status: Acute A
[2020-12-16 11:08] VITALS: BP 106/69; PULSE 79; RESP 23; O2SAT 93
[2020-12-16 11:18] VITALS: BP 118/82; PULSE 83; RESP 20; O2SAT 97
[2020-12-16 11:28] VITALS: BP 141/84; PULSE 79; RESP 25; O2SAT 98
== END 2020-12-16 11:35 | disposition home or self-care (01) ==
PROVIDERS: PCP Student in an Organized Health Care Education/Training Program; Visit Provider Internal Medicine Gastroenterology
PROC: 0DJD8ZZ Inspection of Lower Intestinal Tract, Via Natural or Artificial Opening Endoscopic (ICD-10-PCS; CPT 45378; principal; 2020-12-16 10:00)
DX: Z12.11 Encounter for screening for malignant neoplasm of colon (principal); Z86.010 Personal history of colon polyps; K57.30 Diverticulosis of large intestine without perforation or abscess without bleeding; R25.1 Tremor, unspecified; N40.0 Benign prostatic hyperplasia without lower urinary tract symptoms; F41.8 Other specified anxiety disorders; M79.7 Fibromyalgia; E78.00 Pure hypercholesterolemia, unspecified; E78.5 Hyperlipidemia, unspecified; M19.90 Unspecified osteoarthritis, unspecified site; K27.9 Peptic ulcer, site unspecified, unspecified as acute or chronic, without hemorrhage or perforation; I27.20 Pulmonary hypertension, unspecified; M62.82 Rhabdomyolysis; F20.9 Schizophrenia, unspecified; Z87.891 Personal history of nicotine dependence
CPT/HCPCS: G0105; J2704; J7120

== ENCOUNTER 2021-03-21 13:44 | Observation (INO) | payer MEDICARE, SELFPAY ==
--- NOTE | ~2021-03-21 | XR_ITS ---
EXAMINATION: [id number] INDICATION: Rib pain after fall TECHNIQUE: A frontal view of the chest and 3 views of the left ribs were obtained. COMPARISON: 10/02/2020 FINDINGS: The lungs are free of acute opacities. There is no pleural effusion or pneumothorax. The ca rdiomediastinal silhouette is normal. No displaced rib fracture is identified. Separation at the left acromioclavicular joint is again noted. IMPRESSION: 1. No acute cardiopulmonary abnormality or evidence of displaced rib fracture. 2. Left acromioclavicular joint separation again noted. Reviewed, dictated and finalized at location B.
--- NOTE | ~2021-03-21 | CT_ITS ---
EXAMINATION: CT cervical spine wo con DATE: 03/21/2021 15:23 INDICATION: Head injury, neck pain TECHNIQUE: Computed tomography (CT) of the cervical spine was performed without intravenous contrast. The dose-length product (DLP) was 405.93 mGy-cm. Automated exposure control and iterative reconstruc tion technique were employed. COMPARISON: 08/01/2018 FINDINGS: There are 2 mm of unchanged anterolisthesis of C3 on C4 and C4 on C5 and 2 mm of stable ret rolisthesis of C5 on C6. There is no fracture. The odontoid is intact. There is severe loss of interv ertebral disc space height from C3-4 through C6-7. The prevertebral soft tissues are normal. There is severe multilevel facet and uncovertebral joint osteoarthritis. IMPRESSION: 1. Severe cervical spondylosis without acute findings or significant interval change. Reviewed, dictated and finalized at location B. IMPRESSION: 1. Severe cervical spondylosis without acute findings or significant interval chuck garcía.
--- NOTE | ~2021-03-21 | XR_ITS ---
EXAMINATION: XR hip RT 2V w AP pelvis INDICATION: Right hip pain TECHNIQUE: AP view the pelvis and two views of the right hip are obtained. COMPARISON: 05/12/2020 FINDINGS: There are changes of left total hip arthroplasty. Bone alignment is normal. There is mild o steoarthritis of the right hip. There is no fracture. Phleboliths are noted in the pelvis. Chronic he terotopic ossification is noted near the greater trochanter of the left femur. IMPRESSION: 1. No acute osseous abnormality. Reviewed, dictated and finalized at location B.
--- NOTE | ~2021-03-21 | CT_ITS ---
EXAMINATION: CT brain wo con INDICATION: Head injury COMPARISON: None TECHNIQUE: Standard unenhanced head CT. The dose-length product (DLP) was 605.33 mGy-cm. The mA was a djusted according to patient size. Iterative reconstruction technique was employed. FINDINGS: There is no acute intraparenchymal hemorrhage. No evidence of mass lesion. No evidence of a cute infarction. There is mild periventricular and subcortical hypodensity probably related to small vessel ischemic disease. There is mild prominence of the sulci and ventricles related to cerebral atr ophy. Intracranial calcified cerebral atherosclerosis is noted. There are no extra-axial collections. There is no mass effect or midline shift. Changes in the globes are likely from ocular lens surgery. There is mild mucosal thickening of the paranasal sinuses. IMPRESSION: 1. No acute intracranial abnormality. 2. Age related findings. Reviewed, dictated and finalized at location B.
--- NOTE | ~2021-03-21 | XR_ITS ---
EXAMINATION: XR shoulder LT min 2V INDICATION: Left shoulder pain after fall TECHNIQUE: Three views of the left shoulder are submitted. COMPARISON: 10/02/2020 FINDINGS: There are changes of left total shoulder arthroplasty. Alignment at the glenohumeral joint is unchanged. There is widening of the acromioclavicular joint. The acromion is inferiorly displaced by approximately 8 mm with respect to the distal clavicle. The coracoclavicular interval is normal. T here is a fracture fragment at the base of the acromion. Soft tissues are unremarkable. IMPRESSION: 1. AC joint separation with fracture at the base of the acromion. Normal coracoclavicular interval. Reviewed, dictated and finalized at location B. IMPRESSION: 1. AC joint separation with fracture at the base of the acromion. Normal coraco clavicular interval.
[2021-03-21 13:59] VITALS: BP 159/87; PULSE 107; RESP 20; TEMP 36.6; O2SAT 97
--- NOTE | 2021-03-21 14:56 | ECG_ITS ---
Measurements Intervals [place] Rate: 101 P: 38 MI: 191 QRS: -77 QRSD: 143 T: 53 QT: 366 QTc: 475 Interpretive Statements SINUS TACHYCARDIA RIGHT BUNDLE BRANCH BLOCK LEFT ANTERIOR FASCICULAR BLOCK LOW VOLTAGE- PRECORDIAL LEADS BASELINE ARTIFACT- I, II, III, AVR, AVL ABNORMAL ECG Electronically Signed On 03-21-2021 15:20:48 CDT by Mao Callejas D.O.
[2021-03-21] MEDS: traMADol HCL (*CRX) 50 MG TABLET PO (15:04)
[2021-03-21 15:56] LABS: Basophils Absolute Auto 0.1 K/mm3 (0.0-0.1); Basophils Percent Auto 0.5 % (0.2-1.2); Eosinophils Absolute Auto 0.1 K/mm3 (0-0.3); Eosinophils Percent Auto 0.9 % (0-4.4); Hematocrit 45.8 % (42.0-52.0); Immature Granulocyte Absolute 0.08 K/mm3 (0.00-0.031); Immature Granulocyte Percent A 0.7 % (0-0.5); Lymphocytes Absolute Auto 1.22 K/mm3 (0.9-3.2); Lymphocytes Percent Auto 10.1 % (18.3-44.2); Mean Corpuscular HGB Conc 32.8 g/dl (32-36); Mean Corpuscular Hemoglobin 30.9 pg (26-34); Mean Corpuscular Volume 94.4 fl (80-100); Mean Platelet Volume 9.9 fl (7.4-10.4); Monocytes Percent Auto 8.4 % (2.6-8.5); Neutrophils Absolute Auto 9.6 K/mm3 (1.3-6.7); Neutrophils Percent Auto 79.4 % (45.5-73.1); Platelet Count Result 213 k/mm3 (150-375); Red Blood Count 4.85 M/mm3 (4.6-6.20); Red Cell Distribution Width 13.7 % (11.5-14.5)
--- NOTE | 2021-03-21 15:56 | ED.GENADULT ---
HPI - General Adult General Chief complaint: Extremity Injury, Upper Stated complaint: Left shoulder pain Time Seen by Provider: 03/21/21 14:33 Source: patient and RN notes reviewed Mode of arrival: ambulatory Limitations: no limitations History of Present Illness HPI narrative: This is a 75 year old male who presents for evaluation right hip pain, left rib pain and left shoulder pain s/p fall. Patient states he was going up stairs with his hands full when he accidentally missed a step. This caused him to fall backwards down 8 stairs. He states he hit the back of his head and he denies LOC. He is having mild head pain and neck pain. His pain is most severe to left shoulder, left rib and right hip. He was able to ambulate and drive himself to ER. He is left hand dominant and he lives alone. He denies shortness of breath, nausea, vomiting or dizziness. HE also denies taking blood thinner. Related Data Home Medications Medication Instructions Recorded Confirmed citalopram 20 mg PO DAILY 10/11/19 03/21/21 finasteride 5 mg PO HS 10/11/19 03/21/21 temazepam [Restoril] 30 mg PO HS 10/11/19 03/21/21 duloxetine 60 mg PO DAILY 10/31/19 03/21/21 olanzapine 20 mg PO HS 10/31/19 03/21/21 omega [id number] oil [Fish Oil] 1 cap PO DAILY 10/31/19 03/21/21 pregabalin [Lyrica] 50 mg PO DAILY PRN 10/02/20 03/21/21 polyethylene glycol 3350 [Miralax] 17 g PO DAILY 03/21/21 03/21/21 Allergies Allergy/AdvReac Type Severity Reaction Status Date / Time Sulfa (Sulfonamide Allergy Intermediate Rash Verified 03/21/21 20:06 Antibiotics) Review of Systems Review of Systems: All systems reviewed & are unremarkable except as noted in HPI and below [facility] Past Medical History Medical History (Updated 03/21/21 @ 22:24 by Nakita Mohan PA-C) Benign essential tremor Benign prostatic hyperplasia (Unknown) Congenital renal agenesis, unilateral Depression with anxiety Fibromyalgia Hypercholesterolemia Hyperlipidemia Kidney stone Osteoarthritis Peptic ulcer Pulmonary hypertension Mild pulmonary hypertension noted on echocardiogram in July 2018 with an estimated peak RVSP of 35 to 40 millimeters of mercury. Rhabdomyolysis Hospitalized for such in February 2016, July 2018, September 2019, and September 2020. Schizophrenia (Unknown) Tension headache Surgical History Surgical History History of arthroscopy of right knee (~2002) History of bilateral cataract extraction History of inguinal hernia repair History of left shoulder replacement History of tonsillectomy and adenoidectomy History of total left hip replacement (~2010) History of umbilical hernia repair History of vasectomy Family History Family History Father Cerebrovascular accident Mother Family history of malignant neoplasm of bone Pancreatic cancer Diabetes mellitus Sibling Diabetes mellitus Social History Social History (Updated 03/21/21 @ 22:20 by Nakita Mohan PA-C) Social History: Surrogate decision maker: Susie Elam, niece who lives in [place]. Code status: Full code. Smoking packs per day: 1 Smoking cigarettes per day: 20.0 Years smoked: 50 Smoking pack-years: 50.00 Smoking status: Former smoker Tobacco type: cigarettes and cigars Smoking end date: 12/19/20 Additional smoking assessment comments: Occasional cigar. Alcohol intake: current Drinks per week: 2 Substance use: never Substance use type: does not use Living arrangements: alone Additional living arrangements comments: The patient lives in his own home in [place]. He is . He has an adopted daughter whom he has not seen in many years. 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 Exam Const: General: no acute distress and al
[2021-03-21 16:04] LABS: Add Urine Microscopic? YES; Appearance Urine Clear (Clear); Bilirubin Urine Negative (Negative); Blood Urine Negative (Negative); Color Urine Yellow (Yellow); Glucose Urine UA Negative (Negative); Ketones Urine Negative (Negative); Leukocyte Esterase Ur Negative LEU/UL (Negative); Nitrate Urine Negative (Negative); Protein Urine 2+ mg/dL (Negative); RBC Urine 0-2 /hpf (0-2); Squamous Epithelial Cell Urine Rare /hpf (Few); Urobilinogen Urine Negative mg/dL (<2.0); WBC Urine 0-3 /hpf
[2021-03-21 16:05] LABS: INR 0.9; Prothrombin Time 11.8 Seconds (11.1-14.7)
[2021-03-21 16:06] LABS: Partial Thromboplastin Time 25.6 SECONDS (22.3-36.8)
[2021-03-21 16:07] LABS: Alanine Aminotransferase 25 U/L (4-50); Alkaline Phosphatase 69 U/L (38-126); Anion Gap 6 mmol/L (8-16); Aspartate Amino Transferase 32 U/L (17-59); Bilirubin,Total 0.6 mg/dL (0.2-1.3); Blood Urea Nitrogen 33 mg/dL (9-20); Calcium 9.2 mg/dL (8.4-10.2); Carbon Dioxide 28 mmol/L (22-30); Chloride 106 mmol/L (98-107); Estimated CRCL calculation 52 ml/min; Estimated Glomerular Filt Rate > 60; Glucose 115 mg/dL (65-110); Potassium 4.4 mmol/L (3.4-5.0); Sodium 140 mmol/L (137-145)
--- NOTE | 2021-03-21 17:40 | PCCCNOTE ---
Called to ER to talk with patient for possible placement. Met with patient at bedside, he states that he lives alone and had a fall down 8 stairs. Patient states that he is left arm dominant and he has a fracture of his left shoulder. Patient has declined SNF and home health on previous admissions but is willing for SNF today. Provided with a list of SNF facilities that aligned participate with [facility]. He is agreeable for referrals to be sent to [facility] with [facility]. Called to [facility] and spoke with Samara who does have beds available and advised that referral would be faxed.
[2021-03-21] MEDS: ONDANSETRON INJ 4 MG/2 ML VIAL IV PUSH (18:23)
[2021-03-21] MEDS: MORPHINE SULFATE (*CRX) 4 MG/ML INJ IV PUSH (18:24)
[2021-03-21 18:30] VITALS: BP 121/80; PULSE 95; RESP 20; O2SAT 96
--- NOTE | 2021-03-21 18:30 | PM.IMHP ---
H&P: HPI History of Present Illness Date/Time: 03/21/21 18:30 Chief Complaint: Left shoulder pain after fall. Narrative: This is a pleasant 75-year-old male with schizoaffective disorder, depression, anxiety, benign prostatic hyperplasia, and hypercholesterolemia who presented to the emergency department earlier today via private vehicle from home for evaluation of left shoulder pain after fall. Not long prior to arrival he was walking up steps with his hands full of laundry when he misplaced a foot on the step which caused him to lose his balance and tumbled down 8 stairs. He landed mostly on his left side and did strike the back of his head and shoulder quite hard on the floor. In addition to left shoulder pain he is also having some pain in a left anterior rib as well as in his right hip. He was able to drive himself to the hospital though with some difficulties as he is left hand dominant and he has difficulties moving the left arm due to pain in the shoulder. Shoulder x-ray showed AC joint separation with fracture at the base of the acromion; all other imaging studies were unremarkable. The patient lives in his own home and due to ongoing pain he does not think he will be able to function at home, least for now, and he is being admitted for PT/OT evaluation and hopefully rehab placement before returning home. He denies loss of consciousness in the fall. He also denies shortness of breath and pleuritic pain. No paresthesias, skin color, or temperature changes distal to the fracture site. Review of Systems Review of Systems: Twelve systems were reviewed. No antecedent symptoms prior to the fall today, patient reports it was purely mechanical fall. No fever, chills, or sweats. No recent cold or flu symptoms. Except as documented, all other systems were reviewed and are negative. [facility] Past Medical History Medical History (Updated 03/21/21 @ 22:24 by Nakita Mohan PA-C) Benign essential tremor Benign prostatic hyperplasia (Unknown) Congenital renal agenesis, unilateral Depression with anxiety Fibromyalgia Hypercholesterolemia Hyperlipidemia Kidney stone Osteoarthritis Peptic ulcer Pulmonary hypertension Mild pulmonary hypertension noted on echocardiogram in July 2018 with an estimated peak RVSP of 35 to 40 millimeters of mercury. Rhabdomyolysis Hospitalized for such in February 2016, July 2018, September 2019, and September 2020. Schizophrenia (Unknown) Tension headache Surgical History Surgical History History of arthroscopy of right knee (~2002) History of bilateral cataract extraction History of inguinal hernia repair History of left shoulder replacement History of tonsillectomy and adenoidectomy History of total left hip replacement (~2010) History of umbilical hernia repair History of vasectomy Family History Family History Father Cerebrovascular accident Mother Family history of malignant neoplasm of bone Pancreatic cancer Diabetes mellitus Sibling Diabetes mellitus Social History Social History (Updated 03/21/21 @ 22:20 by Nakita Mohan PA-C) Social History: Surrogate decision maker: Susie Elam, niece who lives in [place]. Code status: Full code. Smoking packs per day: 1 Smoking cigarettes per day: 20.0 Years smoked: 50 Smoking pack-years: 50.00 Smoking status: Former smoker Tobacco type: cigarettes and cigars Smoking end date: 12/19/20 Additional smoking assessment comments: Occasional cigar. Alcohol intake: current Drinks per week: 2 Substance use: never Substance use type: does not use Living arrangements: alone Additional living arrangements comments: The patient lives in his own home in [place]. He is . He has an adopted daughter whom he has not seen in many years. 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
[2021-03-21 19:29] VITALS: PULSE 92; RESP 18
--- NOTE | 2021-03-21 19:34 | PCCCNOTE ---
Fax'd [facility] for SNF authorization and pending, OBRA requested
--- NOTE | 2021-03-21 19:40 | ADMGEN ---
This patient, Tammie Harp, was admitted to Medical Room 340-01. Patient/family oriented to hospital policies and general routines including ID bracelet, bed and alarms, visiting hours, pain management, procedures, bathroom and other care routines, personal items, smoking policy, room service/diet, and visiting hours. Information on how to activate the Rapid Response Team has been discussed. Patient/Family are encouraged to report perceived risks to care and to ask questions if they do not understand what they are told or what they should do.
[2021-03-21 19:47] VITALS: PULSE 92; RESP 18; O2SAT 96
[2021-03-21 20:17] VITALS: BP 132/83; PULSE 91; RESP 18; TEMP 36.3; O2SAT 95; BMI 31.3
[2021-03-22] MEDS: HYDROcodone/acetaminophen (*CRX) 5-325 MG TABLET 1 TAB PO ×4 (01:37→21:04)
[2021-03-22 04:30] VITALS: BP 142/72; PULSE 82; RESP 17; TEMP 36.5; O2SAT 98
[2021-03-22 05:48] LABS: Hematocrit 42.4 % (42.0-52.0); Hemoglobin 13.8 g/dL (14.0-18.0); Mean Corpuscular HGB Conc 32.5 g/dl (32-36); Mean Corpuscular Hemoglobin 30.7 pg (26-34); Mean Corpuscular Volume 94.4 fl (80-100); Mean Platelet Volume 10.1 fl (7.4-10.4); Platelet Count Result 202 k/mm3 (150-375); Red Blood Count 4.49 M/mm3 (4.6-6.20); Red Cell Distribution Width 13.9 % (11.5-14.5); White Blood Count 11.2 K/mm3 (4.5-10.0)
[2021-03-22 06:02] LABS: Anion Gap 9 mmol/L (8-16); Blood Urea Nitrogen 27 mg/dL (9-20); Calcium 8.8 mg/dL (8.4-10.2); Carbon Dioxide 24 mmol/L (22-30); Chloride 104 mmol/L (98-107); Estimated CRCL calculation 59 ml/min; Estimated Glomerular Filt Rate > 60; Glucose 117 mg/dL (65-110); Potassium 4.3 mmol/L (3.4-5.0); Sodium 137 mmol/L (137-145)
[2021-03-22] MEDS: MORPHINE SULFATE (*CRX) 2 MG/ML INJ IV PUSH ×2 (06:31→10:37)
--- NOTE | 2021-03-22 07:28 | PCOTNOTE ---
Waiting for ortho consult to complete OT evaluation, will follow.
[2021-03-22] MEDS: PREGABALIN (*CRX) 50 MG CAPSULE PO (08:50)
[2021-03-22] MEDS: polyethylene glycoL 3350 17 GM POWD.PACK PO (08:50)
[2021-03-22] MEDS: DULoxetine HCL 60 MG CAPSULE.DR PO (09:21)
[2021-03-22] MEDS: CITALOPRAM HYDROBROMIDE 20 MG TABLET PO (09:21)
[2021-03-22] MEDS: OMEGA 3 POLYUNSAT FATTY ACIDS 1 GM CAP PO (09:22)
--- NOTE | 2021-03-22 10:26 | PM.CNOR ---
Assessment and Plan Assessment and plan (1) Separation of left acromioclavicular joint: Code(s): S43.102A - Unspecified dislocation of left acromioclavicular joint, initial encounter Status: Acute Assessment and Plan: History, exam and radiographs reviewed with the patient. Radiographs of the left shoulder from the ED s/p fall reveal AC joint separation with fracture at the base of the acromion. Patient with a history of left total shoulder arthroplasty 1 year ago, seen on radiographs as well. The fracture type and injury as well as radiographs discussed with the patient and family. Operative and nonoperative treatment options reviewed. The patient elects for non operative treatment. Risk of nonunion, malunion or late displacement discussed. Stiffness, pain and possible dysfunction of the joint discussed. Fracture precautions and activity restrictions reviewed. The patient verbalizes understanding. Sling to the LUE for comfort. May remove for gentle ROM exercises. Pendulum Exercises. Sling. WBAT. Pain Control. Ice. PT/OT. High Fall Risk. Monitor skin abrasion over shoulder. Dispo: SNF for further rehab when medically stable. Follow up with surgeon at [facility] who performed total shoulder arthroplasty 1 year ago[address] (Dr. Simons?) Patient unable to remember name of surgeon. Will contact their office to ensure he is a patient of theirs. (2) Fall down stairs: Qualifiers: Encounter type: initial encounter Qualified Code(s): W10.8XXA - Fall (on) (from) other stairs and steps, initial encounter Code(s): W10.8XXA - Fall (on) (from) other stairs and steps, initial encounter Status: Acute Assessment and Plan: Fall Precautions. Walker. PT/OT. WBAT b/l LE. (3) Acromioclavicular joint separation: Qualifiers: Encounter type: initial encounter Laterality: left Qualified Code(s): S43.102A - Unspecified dislocation of left acromioclavicular joint, initial encounter Code(s): S43.109A - Unspecified dislocation of unspecified acromioclavicular joint, initial encounter Status: Acute (4) Acromial fracture: Qualifiers: Encounter type: initial encounter Fracture type: closed Laterality: left Fracture alignment: nondisplaced Qualified Code(s): S42.125A - Nondisplaced fracture of acromial process, left shoulder, initial encounter for closed fracture Code(s): S42.123A - Displaced fracture of acromial process, unspecified shoulder, initial encounter for closed fracture Status: Acute (5) Acute pain of right hip: Code(s): M25.551 - Pain in right hip Status: Acute Assessment and Plan: Radiographs of the right hip with no evidence of fracture. Patient with pain mainly over the lateral aspect of the hip. No significant ecchymosis. No pain with internal rotation/external rotation or flexion/extension. Negative Shuck test. Continue to monitor pain with ambulation. Additional Plan Reviewed patient case, assessment and radiographic findings with attending MD, Dr. Mendoza. Dr. Mendoza recommended f/u with surgeon who performed his shoulder replacement. Dr. Mendoza agrees with above care plans. History of Present Illness HPI Consult date: 03/22/21 Consult reason: fracture (Left AC joint /Left acromium fracture ) Chief complaint: Left Acromium Fracture, Left AC separation Narrative: 75 year old male admitted from home s/p fall down multiple stairs at home with acute onset left shoulder pain. Radiographs obtained in the ER reveal of the left shoulder reveal an AC joint separation with fracture at the base of the acromion. Patient admitted for further evaluation and mobilization with PT/OT as well as possible placement. Review of Systems Review of Systems: All systems reviewed & are unremarkable except as noted in HPI and below [facility] Past Medical History Medical History Benign ess
[2021-03-22] MEDS: DOCUSATE SODIUM 100 MG CAPSULE PO ×2 (10:42→20:07)
--- NOTE | 2021-03-22 13:31 | PM.IMPN ---
Progress Note: A&P Assessment and Plan (1) Acromial fracture: Qualifiers: Encounter type: initial encounter Fracture alignment: nondisplaced Fracture type: closed Laterality: left Qualified Code(s): S42.125A - Nondisplaced fracture of acromial process, left shoulder, initial encounter for closed fracture Code(s): S42.123A - Displaced fracture of acromial process, unspecified shoulder, initial encounter for closed fracture Status: Acute Assessment and Plan: -left AC separation with a fracture of the left acromial base shown on shoulder XR, also hx of Left total shoulder arthroplasty. -The patient lives alone and he has no one to assist him and given the fact that he is left-hand dominant it was felt best that he be admitted PT/OT consult and potentially rehab placement -Will continue pain control and ice -Evaluated by ortho who discussed operative vs non operative tx. Pt elects for non operative tx and was counseled on possibility of nonunion, malunion, or late displacement, as well as pain and possible dysfunction of the joint. He was left in the LUE sling for comfort but was told he may remove it for gentle ROM exercises. -Spoke w/ rn managed care who is working on rehab placement s/p PT/OT recommendations (2) Separation of left acromioclavicular joint: Code(s): S43.102A - Unspecified dislocation of left acromioclavicular joint, initial encounter Status: Acute Assessment and Plan: See above (3) Fall down stairs: Qualifiers: Encounter type: initial encounter Qualified Code(s): W10.8XXA - Fall (on) (from) other stairs and steps, initial encounter Code(s): W10.8XXA - Fall (on) (from) other stairs and steps, initial encounter Status: Acute Assessment and Plan: -Mechanical fall down 8 stairs. No preceding symptoms. -L shoulder XR w/ AC separation and acromial fracture -CT head negative. CT C spine no fracture. R hip XR no fracture. Ribs w/ CXR no fracture. -Fall precautions initiated -See above for details of injuries and management (4) Psychiatric illness: Onset Date: Unknown Code(s): F99 - Mental disorder, not otherwise specified Status: Acute Assessment and Plan: -hx of schizoaffective disorder, depression, anxiety -Well controlled w/ home meds. Will continue Celexa, Cymbalta, Zyprexa, Lyrica, and Restoril. Subjective Date/time seen: 03/22/21 08:31 75-year-old male with hx of schizoaffective disorder, depression, anxiety, benign prostatic hyperplasia, and hyperlipidemia who presented to ED s/p mechanical fall and was found to have AC joint separation with fracture at the base of the acromion. Pt was admitted for PT/OT evaluation and possible rehab placement as he lives alone and is unable to care for himself due to pain/immobility of LUE. Today pt reports 8.5/10 pain but had not received his home medications including cymbalta and lyrica. Pain is worst in his R hip, L anterior ribs, and L shoulder. Also reports constipation, LBM 2 days ago. No abdominal pain or nausea/vomiting. No cp/sob. Review of Systems Review of Systems: General: Denies fevers, chills Eyes: Denies vision changes or eye pain ENT: Denies nasal congestion or sore throat Respiratory: Denies cough or shortness of breath Cardiovascular: Denies chest pain, palpitations, or lower extremity edema Gastrointestinal: Denies abdominal pain, vomiting, or diarrhea. +constipation Genitourinary: Denies dysuria or urinary frequency Musculoskeletal: +joint pain Neurological: Denies headache, paraesthesias, or motor weakness Integumentary: Denies rash Psychiatric: Denies SI/HI Exam Narrative: General: Well-developed male sitting at the side the bed no distress. HEENT: NCAT. PERRL. Sclerae anicteric. Oral mucosa moist. Oropharynx clear. Neck: Supple. Normal ROM. No point ttp. Respiratory: Lungs are CTA bilaterally. Cardiovascul
[2021-03-22 14:00] VITALS: BP 129/75; PULSE 94; RESP 16; TEMP 37.1; O2SAT 96
[2021-03-22] MEDS: OLANZapine 5 MG TABLET 20 MG PO (20:07)
[2021-03-22] MEDS: TEMAZEPAM (*CRX) 15 MG CAPSULE 30 MG PO (20:07)
[2021-03-22] MEDS: FINASTERIDE 5 MG TABLET PO (20:07)
[2021-03-22 20:09] VITALS: O2SAT 92
[2021-03-22 22:00] VITALS: BP 122/60; PULSE 80; RESP 16; TEMP 37.1; O2SAT 94
[2021-03-23] MEDS: MORPHINE SULFATE (*CRX) 2 MG/ML INJ IV PUSH (01:44)
[2021-03-23] MEDS: HYDROcodone/acetaminophen (*CRX) 5-325 MG TABLET 1 TAB PO (03:54)
[2021-03-23 06:00] VITALS: BP 108/65; PULSE 90; RESP 16; TEMP 36.7; O2SAT 93
[2021-03-23] MEDS: oxyCODONE/ACETAMINOPHEN (*CRX) 5-325 MG TABLET 1 TABLET PO ×2 (09:11→13:23)
[2021-03-23] MEDS: CITALOPRAM HYDROBROMIDE 20 MG TABLET PO (09:12)
[2021-03-23] MEDS: OMEGA 3 POLYUNSAT FATTY ACIDS 1 GM CAP PO (09:12)
[2021-03-23] MEDS: DULoxetine HCL 60 MG CAPSULE.DR PO (09:12)
[2021-03-23] MEDS: DOCUSATE SODIUM 100 MG CAPSULE PO (09:12)
[2021-03-23] MEDS: polyethylene glycoL 3350 17 GM POWD.PACK PO (09:12)
--- NOTE | 2021-03-23 11:40 | PM.DS ---
DS: Admitting Diagnosis Discharge Date 02/20/21 Admitting Diagnosis Acromial fracture DS: Discharge Diagnosis Discharge Diagnosis (1) Acromial fracture: Qualifiers: Encounter type: initial encounter Fracture alignment: nondisplaced Fracture type: closed Laterality: left Qualified Code(s): S42.125A - Nondisplaced fracture of acromial process, left shoulder, initial encounter for closed fracture Code(s): S42.123A - Displaced fracture of acromial process, unspecified shoulder, initial encounter for closed fracture Status: Acute Assessment and Plan: -left AC separation with a fracture of the left acromial base shown on shoulder XR, also hx of Left total shoulder arthroplasty. -The patient lives alone and he has no one to assist him and given the fact that he is left-hand dominant it was felt best that he be admitted PT/OT consult and potentially rehab placement -Will continue pain control and ice -Evaluated by ortho who discussed operative vs non operative tx. Pt elects for non operative tx and was counseled on possibility of nonunion, malunion, or late displacement, as well as pain and possible dysfunction of the joint. He was left in the LUE sling for comfort but was told he may remove it for gentle ROM exercises. -Spoke w/ urgent care nurse practitioner who is working on rehab placement, pt to be discharged to [facility] where he can continue his PT/OT and recovery -Will dc w/ short course of [place] for pain control (2) Separation of left acromioclavicular joint: Code(s): S43.102A - Unspecified dislocation of left acromioclavicular joint, initial encounter Status: Acute Assessment and Plan: See above (3) Fall down stairs: Qualifiers: Encounter type: initial encounter Qualified Code(s): W10.8XXA - Fall (on) (from) other stairs and steps, initial encounter Code(s): W10.8XXA - Fall (on) (from) other stairs and steps, initial encounter Status: Acute Assessment and Plan: -Mechanical fall down 8 stairs. No preceding symptoms. -L shoulder XR w/ AC separation and acromial fracture -CT head negative. CT C spine no fracture. R hip XR no fracture. Ribs w/ CXR no fracture. -Fall precautions initiated -See above for details of injuries and management (4) Psychiatric illness: Onset Date: Unknown Code(s): F99 - Mental disorder, not otherwise specified Status: Acute Assessment and Plan: -hx of schizoaffective disorder, depression, anxiety -Well controlled w/ home meds. We continued his Celexa, Cymbalta, Zyprexa, Lyrica, and Restoril. He slept much better last night after we restarted all of his home meds yesterday. We will continue them at the rehab facility. DS: Summary Hospital Course Reason for hospitalization: 75-year-old male with hx of schizoaffective disorder, depression, anxiety, benign prostatic hyperplasia, and hyperlipidemia who presented to ED s/p mechanical fall and was found to have AC joint separation with fracture at the base of the acromion. Please see HPI for further details. Hospital Course: Please see above for details of hospital course. Status at Discharge Cognitive/behavioral status at discharge: stable Functional status at discharge: uses cane/walker Overall status at discharge: patient is progressing back to baseline Time Spent with Patient Time attestation: Total time spent providing and/or coordinating discharge services: 32 Time spent: Greater than 30 minutes Exam Narrative: General: Well-developed male sitting up bed. No acute distress. Pleasant. HEENT: NCAT. PERRL. Sclerae anicteric. Oral mucosa moist. Oropharynx clear. Neck: Supple. Normal ROM. No point ttp. Respiratory: Lungs are CTA bilaterally. Cardiovascular: RRR, no murmurs. Chest: He is tender to palpation in the left lateral lower chest wall. No contusion or abrasion noted. Gastrointestinal: Abdomen is soft, n
== END 2021-03-23 13:50 ==
LOC: ANHED 17:50 → ANH3MED 19:34
PROVIDERS: Physician Assistant; Admitting Provider Internal Medicine; Emergency Provider General Practice; PCP Student in an Organized Health Care Education/Training Program; Visit Provider Internal Medicine
DX: S42.122A Displaced fracture of acromial process, left shoulder, initial encounter for closed fracture (principal); F41.8 Other specified anxiety disorders; N40.0 Benign prostatic hyperplasia without lower urinary tract symptoms; F25.9 Schizoaffective disorder, unspecified; E78.5 Hyperlipidemia, unspecified; M25.551 Pain in right hip; Z87.891 Personal history of nicotine dependence; Z96.612 Presence of left artificial shoulder joint; W10.9XXA Fall (on) (from) unspecified stairs and steps, initial encounter
CPT/HCPCS: 36415; 70450; 71101; 72125; 73030; 73502; 80048; 80053; 81001; 85025; 85027; 85610; 85730; 93005; 96365; 96375; 96376; 97110; 97116; 97163; 97165; 99285; A4565; A9270; G0378; J0131; J1170; J2270; J2405

== ENCOUNTER 2021-06-08 13:34 | Outpatient (CLI) | payer MEDICARE, SELFPAY ==
[2021-06-08 14:51] LABS: Prostate Specific Antigen 0.8 ng/mL (< OR = 4.0)
== END 2021-06-08 13:35 | disposition home or self-care (01) ==
LOC: ANHLAB 13:38
PROVIDERS: PCP Student in an Organized Health Care Education/Training Program; Visit Provider Urology
DX: N40.1 Benign prostatic hyperplasia with lower urinary tract symptoms (principal)
CPT/HCPCS: 36415; 84153

== ENCOUNTER 2021-08-10 08:05 | Outpatient (CLI) | payer MEDICARE, SELFPAY ==
--- NOTE | ~2021-08-10 | MR_ITS ---
EXAMINATION: MR humerus LT wo con DATE: 08/10/2021 10:43 INDICATION: Muscle weakness . Nontraumatic rhabdomyolysis. TECHNIQUE: Magnetic resonance imaging (MRI) of the left humerus was performed without intravenous con trast. Sequences included axial, sagittal and coronal T1-weighted FSE and fluid sensitive FSE STIR. COMPARISON: Left shoulder radiographs dated 03/21/2021 FINDINGS: Magnetic field artifact associated with a reverse left total shoulder arthroplasty which obscures the immediately adjacent bone and soft tissues. Normal marrow signal in the more distal humerus. No asym metric muscular atrophy or abnormal muscle signal in the left upper arm for about the shoulder girdle although assessment bladder is somewhat limited by the metallic artifact. No elbow joint effusion. IMPRESSION: 1. Musculature in the left upper arm and at the shoulder girdle appears unremarkable with no asymmetr ic atrophy or abnormal muscle signal. 2. Reverse left total shoulder arthroplasty which limits evaluation in the immediately adjacent bone and soft tissues at the left shoulder. Reviewed, dictated and finalized at location A. IMPRESSION: 1. Musculature in the left upper arm and at the shoulder girdle appears unremar kable with no asymmetric atrophy or abnormal muscle signal. 2. Reverse left total shoulder arthroplasty which limits evaluation in the imme diately adjacent bone and soft tissues at the left shoulder.
--- NOTE | ~2021-08-10 | MR_ITS ---
EXAMINATION: MR femur LT wo con DATE: 08/10/2021 10:43 INDICATION: Muscle weakness . Nontraumatic rhabdomyolysis TECHNIQUE: Magnetic resonance imaging (MRI) of the left femur was performed without intravenous contr ast. Sequences included axial, sagittal and coronal T1-weighted FSE and fluid sensitive FSE STIR. The contralateral right femur is included on the coronal images. COMPARISON: None. FINDINGS: Metal magnetic field artifact associated with a left total hip arthroplasty. Bone marrow signal is ot herwise normal. There is subtle increased muscle signal in the left semimembranosus, biceps femoris a nd portions of the proximal adductor roger muscle bellies. Subtle increased muscle signal with simil ar distribution suggests at the contralateral right thigh on the coronal images. No left knee joint effusion. IMPRESSION: 1. Subtle increased muscle signal in the left semimembranosus, biceps femoris and portion of the prox imal abductor roger muscle bellies and suggestion of similar findings in the contralateral right thi gh on the coronal images. Findings would be consistent with provided history of rhabdomyolysis with d ifferential including other nonspecific myositis for which there is a wide differential. Reviewed, dictated and finalized at location A. IMPRESSION: 1. Subtle increased muscle signal in the left semimembranosus, biceps femoris a nd portion of the proximal abductor roger muscle bellies and suggestion of sim ilar findings in the contralateral right thigh on the coronal images. Findings would be consistent with provided history of rhabdomyolysis with differential i ncluding other nonspecific myositis for which there is a wide differential.
== END 2021-08-10 08:06 | disposition home or self-care (01) ==
LOC: ANHIMG 08:10
PROVIDERS: PCP Student in an Organized Health Care Education/Training Program
DX: M62.81 Muscle weakness (generalized) (principal); T79.6XXA Traumatic ischemia of muscle, initial encounter; Z96.612 Presence of left artificial shoulder joint
CPT/HCPCS: 73218; 73721

== ENCOUNTER 2021-10-30 11:44 | Emergency (ER) | payer MEDICARE, SELFPAY ==
[2021-10-30 11:49] VITALS: BP 136/78; PULSE 106; RESP 16; TEMP 36.3; O2SAT 96
[2021-10-30 12:13] LABS: Basophils Absolute Auto 0.1 K/mm3 (0.0-0.1); Basophils Percent Auto 0.7 % (0.2-1.2); Eosinophils Absolute Auto 0.2 K/mm3 (0-0.3); Eosinophils Percent Auto 2.1 % (0-4.4); Hematocrit 44.9 % (42.0-52.0); Hemoglobin 14.4 g/dL (14.0-18.0); Immature Granulocyte Absolute 0.04 K/mm3 (0.00-0.031); Immature Granulocyte Percent A 0.6 % (0-0.5); Lymphocytes Absolute Auto 1.48 K/mm3 (0.9-3.2); Lymphocytes Percent Auto 20.6 % (18.3-44.2); Mean Corpuscular HGB Conc 32.1 g/dl (32-36); Mean Corpuscular Hemoglobin 30.4 pg (26-34); Mean Corpuscular Volume 94.9 fl (80-100); Mean Platelet Volume 10.1 fl (7.4-10.4); Monocytes Absolute Auto 0.5 K/mm3 (0.1-0.6); Monocytes Percent Auto 7.2 % (2.6-8.5); Neutrophils Absolute Auto 4.9 K/mm3 (1.3-6.7); Neutrophils Percent Auto 68.8 % (45.5-73.1); Nucleated Red Blood Cells Perc 0.3 % (0.0-0.2); Platelet Count Result 195 k/mm3 (150-375); Red Blood Count 4.73 M/mm3 (4.6-6.20); Red Cell Distribution Width 13.8 % (11.5-14.5); White Blood Count 7.2 K/mm3 (4.5-10.0)
--- NOTE | 2021-10-30 12:13 | ED.GENADULT ---
HPI - General Adult General Chief complaint: Extremity Problem,Nontraumatic Stated complaint: JOINT PAIN, HX OF FIBROMYALGIA Time Seen by Provider: 10/30/21 12:02 Source: RN notes reviewed History of Present Illness HPI narrative: Patient presents emergency room from home for aching in his bilateral legs. Patient states symptoms began yesterday with achiness in his bilateral thighs and knees patient states that the symptoms feel like his previous episodes of rhabdomyolysis he states that that episode of rhabdomyolysis was secondary to being on medication he denies any fevers or chills abdominal pain nausea vomiting diarrhea back pain bowel or bladder incontinence he denies any direct trauma or injury to the legs states he does have a history of fibromyalgia states he did take some anti-inflammatories at home this morning Related Data Home Medications Medication Instructions Recorded Confirmed citalopram 20 mg tablet 20 mg PO DAILY 10/11/19 03/21/21 finasteride 5 mg tablet 5 mg PO HS 10/11/19 03/21/21 duloxetine 60 mg capsule,delayed 60 mg PO DAILY 10/31/19 03/21/21 release omega 9-gqh-kwg-fish oil 1,200 mg 1 cap PO DAILY 10/31/19 03/21/21 (144 mg-216 mg) capsule (Fish Oil) polyethylene glycol 3350 17 gram 17 g PO DAILY 03/21/21 03/21/21 oral powder packet (Miralax) Allergies Allergy/AdvReac Type Severity Reaction Status Date / Time Sulfa (Sulfonamide Allergy Intermediate Rash Verified 10/30/21 12:16 Antibiotics) Review of Systems Review of Systems: Gen.: Denies fevers or chills Eyes: Denies eye pain or visual change ENT: Denies congestion Respiratory: Denies shortness of breath or cough CV: Denies chest pain or palpitations GI: Denies abdominal pain nausea, emesis or diarrhea Musculoskeletal: See HPI Neuro: Denies numbness, tingling, weakness or focal weakness Skin: Denies rash Except as documented, all other systems reviewed and negative PMFSH Past Medical History Medical History Benign essential tremor Benign prostatic hyperplasia (Unknown) Congenital renal agenesis, unilateral Depression with anxiety Fibromyalgia Hypercholesterolemia Hyperlipidemia Kidney stone Osteoarthritis Peptic ulcer Pulmonary hypertension Mild pulmonary hypertension noted on echocardiogram in July 2018 with an estimated peak RVSP of 35 to 40 millimeters of mercury. Rhabdomyolysis Hospitalized for such in February 2016, July 2018, September 2019, and September 2020. Schizophrenia (Unknown) Tension headache Surgical History Surgical History History of arthroscopy of right knee (~2002) History of bilateral cataract extraction History of inguinal hernia repair History of left shoulder replacement History of tonsillectomy and adenoidectomy History of total left hip replacement (~2010) History of umbilical hernia repair History of vasectomy Family History Family History Father Cerebrovascular accident Mother Family history of malignant neoplasm of bone Pancreatic cancer Diabetes mellitus Sibling Diabetes mellitus Social History Social History Social History: Surrogate decision maker: Susie Elam, niece who lives in [place]. Code status: Full code. Smoking packs per day: 1 Smoking cigarettes per day: 20.0 Years smoked: 50 Smoking pack-years: 50.00 Smoking status: Former smoker Tobacco type: cigarettes and cigars Smoking end date: 12/19/20 Additional smoking assessment comments: Occasional cigar. Alcohol intake: current Drinks per week: 2 Substance use: never Substance use type: does not use Additional living arrangements comments: The patient lives in his own home in [place]. He is . He has an adopted daughter whom he has not seen in many years. Additional occupation/educ
[2021-10-30 12:22] LABS: Alanine Aminotransferase 18 U/L (6-50); Albumin Level 3.9 g/dL (3.5-5.1); Alkaline Phosphatase 58 U/L (38-126); Anion Gap 5 mmol/L (8-16); Aspartate Amino Transferase 26 U/L (17-59); Bilirubin,Total 0.4 mg/dL (0.2-1.3); Blood Urea Nitrogen 26 mg/dL (9-20); Calcium 8.9 mg/dL (8.4-10.2); Carbon Dioxide 26 mmol/L (22-30); Chloride 110 mmol/L (98-107); Creatine Kinase 366 U/L (55-170); Estimated CRCL calculation 47 ml/min; Estimated Glomerular Filt Rate 59; Glucose 95 mg/dL (65-110); Potassium 4.3 mmol/L (3.4-5.0); Sodium 141 mmol/L (137-145)
[2021-10-30 12:31] LABS: Appearance Urine Clear (Clear); Bilirubin Urine Negative (Negative); Blood Urine Negative (Negative); Color Urine Yellow (Yellow); Glucose Urine UA Negative (Negative); Ketones Urine Negative (Negative); Leukocyte Esterase Ur Negative LEU/UL (Negative); Nitrate Urine Negative (Negative); Protein Urine Negative (Negative); Specific Grav Ur 1.015 (1.001-1.035); Urobilinogen Urine 0.2 mg/dL (<2.0)
[2021-10-30 12:38] LABS: Mucus Urine Rare /lpf; RBC Urine 0-2 /hpf (0-2); WBC Urine 0-3 /hpf
[2021-10-30] MEDS: SODIUM CHLORIDE 0.9% IV 1,000 ML 999 ML IV CONT (12:38)
[2021-10-30 12:39] LABS: Add Urine Microscopic? NO
[2021-10-30] MEDS: ACETAMINOPHEN 500 MG TABLET 1000 MG PO (14:20)
[2021-10-30 16:03] VITALS: BP 134/82; PULSE 64; RESP 18; O2SAT 97
== END 2021-10-30 16:06 | disposition home or self-care (01) ==
PROVIDERS: General Practice; Emergency Provider Emergency Medicine; PCP Student in an Organized Health Care Education/Training Program
DX: M79.605 Pain in left leg (principal); M79.604 Pain in right leg; E78.5 Hyperlipidemia, unspecified; I27.20 Pulmonary hypertension, unspecified; M79.7 Fibromyalgia; M19.90 Unspecified osteoarthritis, unspecified site; Q60.0 Renal agenesis, unilateral; Z87.442 Personal history of urinary calculi; Z87.11 Personal history of peptic ulcer disease; Z98.42 Cataract extraction status, left eye; Z98.41 Cataract extraction status, right eye; Z96.612 Presence of left artificial shoulder joint; Z96.642 Presence of left artificial hip joint; Z87.891 Personal history of nicotine dependence
CPT/HCPCS: 36415; 80048; 80076; 81003; 82550; 85025; 96360; 99283; A9270; J7030

== ENCOUNTER → 2022-07-12 09:04 | Outpatient (CLI) | payer MEDICARE, SELFPAY ==
--- NOTE | ~2022-07-12 | CT_ITS ---
EXAMINATION: CT sinus wo con DATE: 07/12/2022 09:15 INDICATION: Acute recurrent frontal sinus disease. TECHNIQUE: Computed tomography (CT) of the paranasal sinuses was performed without intravenous contra st. The dose-length product was 279.12 mGy-cm. Automated exposure control and iterative reconstructio n technique were employed. COMPARISON: CT dated 03/21/2021 FINDINGS: There is right maxillary sinus mucosal thickening with air-fluid level and locules of gas w ithin the fluid, consistent with acute sinusitis. The remainder of the sinuses are pneumatized. No si gnificant nasal septal deviation. Right ostiomeatal unit is occluded. There is minimal mucosal thicke moy of the left maxillary sinus and the ethmoid sinuses. Orbits are intact. IMPRESSION: 1. Moderate sinusitis, most advanced in the right maxillary sinus, likely acute. Reviewed, dictated and finalized at location B. 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 Moderate sinusitis, most advanced in the right maxillary sinus, likely acute .
== END ==
PROVIDERS: PCP Student in an Organized Health Care Education/Training Program; Visit Provider Student in an Organized Health Care Education/Training Program
DX: J01.11 Acute recurrent frontal sinusitis (principal)
CPT/HCPCS: 70486

== ENCOUNTER 2022-09-27 10:41 | Outpatient (CLI) | payer MEDICARE, SELFPAY ==
[2022-09-27 11:23] LABS: Basophils Absolute Auto 0.1 K/mm3 (0.0-0.1); Basophils Percent Auto 0.9 % (0.2-1.2); Eosinophils Absolute Auto 0.1 K/mm3 (0-0.3); Hematocrit 44.3 % (42.0-52.0); Hemoglobin 14.4 g/dL (14.0-18.0); Immature Granulocyte Absolute 0.07 K/mm3 (0.00-0.031); Lymphocytes Absolute Auto 1.27 K/mm3 (0.9-3.2); Lymphocytes Percent Auto 18.5 % (18.3-44.2); Mean Corpuscular HGB Conc 32.5 g/dl (32-36); Mean Corpuscular Hemoglobin 30.3 pg (26-34); Mean Corpuscular Volume 93.3 fl (80-100); Mean Platelet Volume 9.9 fl (7.4-10.4); Monocytes Absolute Auto 0.6 K/mm3 (0.1-0.6); Monocytes Percent Auto 8.3 % (2.6-8.5); Neutrophils Absolute Auto 4.8 K/mm3 (1.3-6.7); Neutrophils Percent Auto 70.3 % (45.5-73.1); Platelet Count Result 203 k/mm3 (150-375); Red Blood Count 4.75 M/mm3 (4.6-6.20); Red Cell Distribution Width 14.1 % (11.5-14.5); White Blood Count 6.9 K/mm3 (4.5-10.0)
[2022-09-27 11:37] LABS: Vitamin D 25 Hydroxy 53.2 ng/mL
[2022-09-27 12:17] LABS: Hemoglobin A1C 5.7 % (<5.7)
[2022-09-27 12:53] LABS: Alanine Aminotransferase 21 U/L (6-50); Alkaline Phosphatase 67 U/L (38-126); Anion Gap 5 mmol/L (8-16); Aspartate Amino Transferase 29 U/L (17-59); Bilirubin,Total 0.6 mg/dL (0.2-1.3); Blood Urea Nitrogen 25 mg/dL (9-20); Calcium 8.9 mg/dL (8.4-10.2); Carbon Dioxide 29 mmol/L (22-30); Chloride 105 mmol/L (98-107); Cholesterol 202 mg/dL (0-200); Estimated Glomerular Filt Rate > 60; Glucose 106 mg/dL (65-110); HDL Direct 42 mg/dL; Potassium 4.4 mmol/L (3.4-5.0); Sodium 139 mmol/L (137-145); Triglycerides 194 mg/dL (<150)
[2022-09-27 13:05] LABS: LDL Cholesterol Direct 106 mg/dL
[2022-09-27 14:12] LABS: Folic Acid 9.6 ng/mL (2.76->20)
[2022-10-01 12:21] LABS: Insulin Level Total 5.8 uIU/mL (<=19.6)
== END 2022-09-27 10:42 | disposition home or self-care (01) ==
LOC: ANHLAB 10:42
PROVIDERS: PCP Student in an Organized Health Care Education/Training Program; Visit Provider Psychiatry & Neurology Psychiatry
DX: F25.0 Schizoaffective disorder, bipolar type (principal); Z79.899 Other long term (current) drug therapy
CPT/HCPCS: 36415; 80053; 80061; 82306; 82607; 82746; 83036; 83525; 84443; 85025

== ENCOUNTER 2022-11-14 15:03 | Emergency (ER) | payer MEDICARE, SELFPAY ==
[2022-11-14] VITALS (16 sets, daily range): BP systolic 93–159; BP diastolic 66–96; PULSE 71–102; RESP 13–26; TEMP 36.9; O2SAT 95–100
--- NOTE | ~2022-11-14 | CT_ITS ---
EXAMINATION: CT brain wo con DATE: 11/14/2022 17:30 INDICATION: dizziness . TECHNIQUE: Computed tomography (CT) of the head was performed without intravenous contrast. The mA wa s adjusted according to patient size. Iterative reconstruction technique was employed. The dose-lengt h product was 756.67 mGy-cm. COMPARISON: 03/21/2021. FINDINGS: No acute intracranial hemorrhage or extra-axial fluid collection. No hydrocephalus, mass, or herniation. No acute ischemic infarct. Unremarkable dural venous sinus attenuation. No acute osseous abnormality. Mucosal thickening in the ethmoid air cells, the remaining aerated spaces are clear. Moderate atrophy and chronic white matter change. Atherosclerotic intracranial calcification. Focal c hronic appearing right basal ganglia lacunar infarct. Bilateral lens replacements. IMPRESSION: No acute intracranial process. Reviewed, dictated and finalized at location K.
--- NOTE | ~2022-11-14 | XR_ITS ---
EXAMINATION: XR chest 2V DATE: 11/14/2022 15:35 INDICATION: Shortness of breath TECHNIQUE: AP and lateral views of the chest are obtained. COMPARISON: 10/02/2020 FINDINGS: The lungs are free of acute opacities. No pleural effusion or pneumothorax. The cardiomedia stinal silhouette is normal. There is moderate thoracic spondylosis. There is unchanged chronic anter ior wedging of multiple midthoracic vertebral bodies. There are changes of left total shoulder arthro plasty. IMPRESSION: 1. No acute cardiopulmonary abnormality. Reviewed, dictated and finalized at location L.
--- NOTE | ~2022-11-14 | CT_ITS ---
EXAMINATION: CTA chest PE protocol DATE: 11/14/2022 17:36 INDICATION: SOB, hypoxia, tachycardia TECHNIQUE: Computed tomography angiography (CTA) of the chest was performed with 100 mL Omnipaque-350 intravenous contrast timed to evaluate the pulmonary arteries. Coronal maximum intensity projection 3D-reconstructions were created by the technologist. The dose-length product (DLP) was 518.19 mGy-cm. Automated exposure control and iterative reconstruction technique were employed. COMPARISON: X-ray chest, same date and 10/02/2020; CT chest 05/19/2010. FINDINGS: Lung parenchyma and airways: Mild biapical pleural scarring. Mild dependent scar/atelectasis. Patent airways. Stable calcified granulomas and intrapulmonary lymph nodes. Pleura: Unremarkable. Thoracic inlet, axillae and chest wall: Mild bilateral symmetric gynecomastia. Thoracic aorta: Normal. Mediastinum: Normal. Heart and pericardium: Mild arch calcification. Coronary artery calcifications: Moderate. Upper abdomen: No significant finding. Bones: No acute osseous finding. Multiple chronic stable thoracic vertebral body compression fracture s. Pulmonary arteries: Study quality: Adequate. No pulmonary emboli detected. IMPRESSION: No CT evidence of acute pulmonary embolus. No acute thoracic process detected. Reviewed, dictated and finalized at location K.
--- NOTE | 2022-11-14 15:11 | ECG_ITS ---
Measurements Intervals [place] Rate: 99 P: 46 OR: 148 QRS: -86 QRSD: 137 T: 55 QT: 367 QTc: 473 Interpretive Statements SINUS RHYTHM RIGHT BUNDLE BRANCH BLOCK [120+ ms QRS DURATION, UPRIGHT V1, 40+ ms S IN I/aVL/V4/V5/V6] LEFT ANTERIOR FASCICULAR BLOCK [QRS AXIS <= -45, QR IN I, RS IN II] ANTEROSEPTAL MYOCARDIAL INFARCTION , OF INDETERMINATE AGE [40+ ms Q WAVE IN V1-V4] ABNORMAL ECG Electronically Signed On 11-15-2022 11:52:33 CDT by Alonzo Moore M.D.
[2022-11-14 15:26] LABS: Basophils Absolute Auto 0.1 K/mm3 (0.0-0.1); Basophils Percent Auto 0.4 % (0.2-1.2); Hematocrit 45.7 % (42.0-52.0); Hemoglobin 14.9 g/dL (14.0-18.0); Immature Granulocyte Absolute 0.05 K/mm3 (0.00-0.031); Immature Granulocyte Percent A 0.4 % (0-0.5); Lymphocytes Absolute Auto 0.76 K/mm3 (0.9-3.2); Lymphocytes Percent Auto 6.7 % (18.3-44.2); Mean Corpuscular HGB Conc 32.6 g/dl (32-36); Mean Corpuscular Volume 92.1 fl (80-100); Monocytes Absolute Auto 0.6 K/mm3 (0.1-0.6); Monocytes Percent Auto 5.6 % (2.6-8.5); Neutrophils Absolute Auto 9.8 K/mm3 (1.3-6.7); Neutrophils Percent Auto 86.9 % (45.5-73.1); Platelet Count Result 244 k/mm3 (150-375); Red Blood Count 4.96 M/mm3 (4.6-6.20); Red Cell Distribution Width 13.2 % (11.5-14.5); White Blood Count 11.3 K/mm3 (4.5-10.0)
[2022-11-14 15:37] LABS: Alanine Aminotransferase 32 U/L (6-50); Albumin Level 4.3 g/dL (3.5-5.1); Alkaline Phosphatase 59 U/L (38-126); Anion Gap 11 mmol/L (8-16); Aspartate Amino Transferase 37 U/L (17-59); Bilirubin,Total 0.6 mg/dL (0.2-1.3); Blood Urea Nitrogen 31 mg/dL (9-20); Calcium 9.5 mg/dL (8.4-10.2); Carbon Dioxide 25 mmol/L (22-30); Chloride 109 mmol/L (98-107); Estimated CRCL calculation 42 ml/min; Estimated Glomerular Filt Rate 59; Glucose 142 mg/dL (65-110); Potassium 4.2 mmol/L (3.4-5.0); Sodium 145 mmol/L (137-145)
--- NOTE | 2022-11-14 16:28 | PC.NURSE ---
Pt reports he is feeling better and wants to go home.
--- NOTE | 2022-11-14 17:26 | PC.NURSE ---
Ambulated in halls. Pt became dizzy and 02 sat dropped to 88% with exertion.
--- NOTE | 2022-11-14 17:30 | ED.GENADULT ---
HPI - General Adult General Chief complaint: Shortness of Breath/Dyspnea Stated complaint: sob Time Seen by Provider: 11/14/22 16:13 History of Present Illness HPI narrative: 77-year-old male present emerged department for evaluation of increased dizziness over the course of the last week and increased shortness of breath today. Patient states he has had intermittent dizziness when he wakes up in the morning and this resolved after approximately 1 hour or so. Patient states when he was ambulating today he had onset of shortness of breath. On initial examination patient states he was not feeling dizzy and he was having no shortness of breath. Patient was saturating well on room air. Patient does have a history of schizophrenia Related Data Home Medications Medication Instructions Recorded Confirmed citalopram 20 mg tablet 20 mg PO DAILY 10/11/19 03/21/21 finasteride 5 mg tablet 5 mg PO HS 10/11/19 03/21/21 duloxetine 60 mg capsule,delayed 60 mg PO DAILY 10/31/19 03/21/21 release omega 1-ddt-qwz-fish oil 1,200 mg 1 cap PO DAILY 10/31/19 03/21/21 (144 mg-216 mg) capsule (Fish Oil) polyethylene glycol 3350 17 gram 17 g PO DAILY 03/21/21 03/21/21 oral powder packet (Miralax) Allergies Allergy/AdvReac Type Severity Reaction Status Date / Time Sulfa (Sulfonamide Allergy Intermediate Rash Verified 11/14/22 15:13 Antibiotics) Review of Systems Review of Systems: All systems reviewed & are unremarkable except as noted in HPI and below PMFSH Past Medical History Medical History Benign essential tremor Benign prostatic hyperplasia (Unknown) Congenital renal agenesis, unilateral Depression with anxiety Fibromyalgia Hypercholesterolemia Hyperlipidemia Kidney stone Osteoarthritis Peptic ulcer Pulmonary hypertension Mild pulmonary hypertension noted on echocardiogram in July 2018 with an estimated peak RVSP of 35 to 40 millimeters of mercury. Rhabdomyolysis Hospitalized for such in February 2016, July 2018, September 2019, and September 2020. Schizophrenia (Unknown) Tension headache Surgical History Surgical History History of arthroscopy of right knee (~2002) History of bilateral cataract extraction History of inguinal hernia repair History of left shoulder replacement History of tonsillectomy and adenoidectomy History of total left hip replacement (~2010) History of umbilical hernia repair History of vasectomy Family History Family History Father Cerebrovascular accident Mother Family history of malignant neoplasm of bone Pancreatic cancer Diabetes mellitus Sibling Diabetes mellitus Social History Social History Social History: Surrogate decision maker: Susie Elam, niece who lives in [place]. Code status: Full code. Smoking packs per day: 1 Smoking cigarettes per day: 20.0 Years smoked: 50 Smoking pack-years: 50.00 Smoking status: Former smoker Tobacco type: cigarettes and cigars Smoking end date: 12/19/20 Additional smoking assessment comments: Occasional cigar. Alcohol intake: current Drinks per week: 2 Substance use: never Substance use type: does not use Living arrangements: alone Additional living arrangements comments: The patient lives in his own home in [place]. He is . He has an adopted daughter whom he has not seen in many years. 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 Exam Narrative: APPEARANCE: Well appearing, no pain, no distress, well-nourished. HEAD: normocephalic, atraumatic. EYES: PERRLA/EOMI, conjunctivae clear. NOSE: Normal no drainage EARS: Impacted cerumen bilaterally THROAT: Pharynx clear, no exudate. NECK: Joyce
--- NOTE | 2022-11-14 18:28 | PC.NURSE ---
Irrigated bilateral ears with moderate amount of wax from right ear. Tolerated well.
[2022-11-14 18:46] LABS: NT Pro B Type Natriuretic Pept 335 pg/mL (19.9-100)
== END 2022-11-14 19:06 | disposition home or self-care (01) ==
PROVIDERS: Emergency Provider Emergency Medicine; PCP Student in an Organized Health Care Education/Training Program
DX: R42 Dizziness and giddiness (principal); R06.00 Dyspnea, unspecified; E78.5 Hyperlipidemia, unspecified; Z87.891 Personal history of nicotine dependence
CPT/HCPCS: 36415; 70450; 71046; 71275; 80053; 83880; 85025; 93005; 99284; Q9967

== ENCOUNTER 2022-11-20 08:43 | Observation (INO) | payer MEDICARE, SELFPAY ==
[2022-11-20] VITALS (15 sets, daily range): BP systolic 135–170; BP diastolic 78–93; PULSE 86–103; RESP 14–30; TEMP 36.5–37.7; O2SAT 96–100; BMI 29.1
--- NOTE | ~2022-11-20 | MR_ITS ---
EXAMINATION: MR brain/brain stem wo/w con DATE: 11/22/2022 06:57 INDICATION: Altered mental status. Aphasia. TECHNIQUE: Magnetic resonance imaging (MRI) of the brain and brainstem was performed without and with 17 mL MultiHance intravenous contrast. COMPARISON: Brain MRI 04/04/2013, head CT 11/20/2022 FINDINGS: There are scattered areas of nonspecific increased T2-weighted signal intensity in the cere bral white matter and rolly. There is a developmental venous anomaly in left frontal lobe. There is no intracranial hemorrhage, acute infarction, or abnormal intracranial mass lesion. The ventricles are normal in size. There are likely changes of ocular lens replacement surgeries. There is mild mucosal thickening in the ethmoid sinuses. The mastoid air cells are normal. IMPRESSION: 1. Mild nonspecific cerebral white matter disease and pontine disease, which likely represents chroni c small vessel ischemic disease, worsened from 04/04/2013. Reviewed, dictated and finalized at location A. IMPRESSION: 1. Mild nonspecific cerebral white matter disease and pontine disease, which paula dangelo represents chronic small vessel ischemic disease, worsened from 04/04/2013 .
--- NOTE | ~2022-11-20 | CT_ITS ---
EXAMINATION: CTA brain carotid DATE: 11/20/2022 10:14 INDICATION: Aphasia. Altered mental status. TECHNIQUE: Computed tomographic angiography (CTA) of the head was performed without and with 225 mL O mnipaque-350 intravenous contrast. CTA of the neck was performed with intravenous contrast. Automated exposure control and iterative reconstruction technique were employed. The dose-length product was 7 74.20 mGy-cm. Maximum intensity projection and volume rendered 3D-reconstructions were created by the technologist on a separate workstation. COMPARISON: Head CT 11/14/2022 FINDINGS: HEAD CTA: There is no intracranial hemorrhage, acute infarction, or abnormal intracranial mass lesion . There are scattered areas of low attenuation in the cerebral white matter. The ventricles are maria c l in size. There are likely changes of ocular lens replacement surgeries. There is mild mucosal thick ening in the paranasal sinuses. The mastoid air cells are normal. The vertebral arteries are codomina nt. There is no significant stenosis of basilar artery or the posterior cerebral arteries. There is n o significant stenosis of the intracranial internal carotid arteries or anterior or middle cerebral a rteries. Anterior communicating artery is normal. Left posterior communicating artery is normal. A ri ght posterior communicating artery is not identified. There is no aneurysm. NECK CTA: There is mild scarring at the lung apices. There is mild emphysema. There are no pathologic ally enlarged lymph nodes. There is no significant stenosis of the vertebral arteries. There is plaqu e in the proximal internal carotid arteries. There is 0% stenosis of the proximal right internal méndez tid artery relative to normal distal artery lumen diameter (NASCET criteria). There is 0% stenosis of the proximal left internal carotid artery relative to normal distal artery lumen diameter. There is severe cervical spondylosis. There is chronic height loss of multiple thoracic vertebral bodies. IMPRESSION: 1. Stable mild nonspecific cerebral white matter disease, which likely represents chronic small vesse l ischemic disease. 2. No aneurysm or significant intracranial arterial stenosis. 3. 0% stenosis of the proximal internal carotid arteries relative to normal distal artery lumen diame ters (NASCET criteria). Reviewed, dictated and finalized at location A. IMPRESSION: 1. Stable mild nonspecific cerebral white matter disease, which likely represen ts chronic small vessel ischemic disease. 2. No aneurysm or significant intracranial arterial stenosis. 3. 0% stenosis of the proximal internal carotid arteries relative to normal dis fernando artery lumen diameters (NASCET criteria).
--- NOTE | ~2022-11-20 | CT_ITS ---
Clinical Indication: Tachypnea CT Scan of the Chest with Contrast: Technique: Contiguous sections were acquired throughout the chest after intravenous administration of 225 cc of Omnipaque 350. Dose reduction technique was used on this scan by utilizing automated expos ure control and iterative reconstruction technique. The dose-length product (DLP) was 774.20 mGy-cm. Findings: Exam is degraded by motion artifact. There is no evidence of any significant mediastinal, hilar or axillary lymphadenopathy. No large cent ral pulmonary embolus evident. Evaluation of the smaller, more peripheral pulmonary emboli is markedl y limited due to motion artifact. There is no evidence of aortic dissection or aneurysm. There is no evidence of pleural or pericardial effusion. The lungs are clear. No pulmonary nodules or infiltrates are noted. Images through the upper abdomen reveal no abnormalities. There are mild chronic compression deformit ies of T7, T8, and T9. Impression: No large central pulmonary embolus seen. Motion artifact markedly limits evaluation for smaller, more peripheral pulmonary emboli. No significant pulmonary abnormality seen. Mild chronic compression deformities of T7, T8, and T9. Reviewed, dictated and finalized at [facility]. Impression: No large central pulmonary embolus seen. Motion artifact markedly limits evalua tion for smaller, more peripheral pulmonary emboli. No significant pulmonary abnormality seen. Mild chronic compression deformities of T7, T8, and T9.
--- NOTE | 2022-11-20 08:56 | ECG_ITS ---
Measurements Intervals [place] Rate: 92 P: 57 GA: 181 QRS: -78 QRSD: 138 T: 58 QT: 397 QTc: 492 Interpretive Statements SINUS RHYTHM VENTRICULAR PREMATURE COMPLEX RIGHT BUNDLE BRANCH BLOCK LEFT ANTERIOR FASCICULAR BLOCK BASELINE ARTIFACT- II, III, AVR, AVL, AVF, V4-V6 ABNORMAL ECG COMPARED TO ECG 11/14/2022 15:12:37 NO SIGNIFICANT CHANGES Electronically Signed On 11-20-2022 13:52:47 CDT by Mao Callejas D.O.
[2022-11-20 09:08] LABS: Basophils Absolute Auto 0.1 K/mm3 (0.0-0.1); Basophils Percent Auto 0.5 % (0.2-1.2); Eosinophils Percent Auto 0.3 % (0-4.4); Hematocrit 45.3 % (42.0-52.0); Immature Granulocyte Percent A 1.9 % (0-0.5); Lymphocytes Percent Auto 9.4 % (18.3-44.2); Mean Corpuscular HGB Conc 33.1 g/dl (32-36); Mean Corpuscular Hemoglobin 31.2 pg (26-34); Mean Corpuscular Volume 94.2 fl (80-100); Mean Platelet Volume 10.2 fl (7.4-10.4); Monocytes Absolute Auto 0.6 K/mm3 (0.1-0.6); Monocytes Percent Auto 5.9 % (2.6-8.5); Neutrophils Absolute Auto 8.8 K/mm3 (1.3-6.7); Platelet Count Result 212 k/mm3 (150-375); Red Blood Count 4.81 M/mm3 (4.6-6.20); Red Cell Distribution Width 13.5 % (11.5-14.5); White Blood Count 10.7 K/mm3 (4.5-10.0)
--- NOTE | 2022-11-20 09:10 | ED.GENADULT ---
HPI - General Adult General Chief complaint: Altered Mental Status <Conor Greenberg PA-C - Last Filed: 11/20/22 18:13> Stated complaint: Sob <Conor Greenberg PA-C - Last Filed: 11/20/22 18:13> Time Seen by Provider: 11/20/22 08:58 <Conor Greenberg PA-C - Last Filed: 11/20/22 18:13> Source: patient <DIANA Salvador Last Filed: 11/20/22 18:13> Mode of arrival: EMS <DIANA Salvador Last Filed: 11/20/22 18:13> Limitations: altered mental status <Conor Greenberg PA-C - Last Filed: 11/20/22 18:13> History of Present Illness HPI narrative: This is a 77-year-old male PMH of schizophrenia, rhabdomyolysis who presents to the ED via EMS for chief complaint of dyspnea and altered mental status. He was found at [facility] to be altered. Per EMS he would not speak and only nodded head when asked questions. He appeared very anxious for EMS and nursing intake. During my interview, patient will occasionally nod his head when I speak to him. Otherwise unable to obtain any further history. Per chart review patient was here last week for shortness of breath and dizziness that self resolved. Apparently he was able to fully verbalize with us at that time. <Conor Greenberg PA-C - Last Filed: 11/20/22 18:13> Related Data Home medications: Home Medications Medication Instructions Recorded Confirmed citalopram 20 mg tablet 20 mg PO DAILY 10/11/19 11/20/22 finasteride 5 mg tablet 5 mg PO HS 10/11/19 11/20/22 duloxetine 60 mg capsule,delayed 60 mg PO DAILY 10/31/19 11/20/22 release omega 5-hkp-nvz-fish oil 1,200 mg 1 cap PO DAILY 10/31/19 11/20/22 (144 mg-216 mg) capsule (Fish Oil) polyethylene glycol 3350 17 gram 17 g PO DAILY 03/21/21 11/20/22 oral powder packet (Miralax) <DIANA Salvador Last Filed: 11/20/22 18:13> Allergies/adverse reactions: Allergies Allergy/AdvReac Type Severity Reaction Status Date / Time Sulfa (Sulfonamide Allergy Intermediate Rash Verified 11/14/22 15:13 Antibiotics) <Conor Greenberg PA-C - Last Filed: 11/20/22 18:13> [facility] Past Medical History Medical History: Medical History (Updated 11/20/22 @ 14:34 by Nakita Mohan PA-C) Benign essential tremor Benign prostatic hyperplasia (Unknown) Congenital renal agenesis, unilateral Depression with anxiety Fibromyalgia Hypercholesterolemia Hyperlipidemia Kidney stone Osteoarthritis Peptic ulcer Pulmonary hypertension Mild pulmonary hypertension noted on echocardiogram in July 2018 with an estimated peak RVSP of 35 to 40 millimeters of mercury. Rhabdomyolysis Hospitalized for such in February 2016, July 2018, September 2019, and September 2020. Schizophrenia (Unknown) Tension headache <Conor Greenberg PA-C - Last Filed: 11/20/22 18:13> Surgical History Surgical History: Surgical History (Updated 11/20/22 @ 14:30 by Nakita Mohan PA-C) History of arthroscopy of right knee (2002) History of bilateral cataract extraction History of inguinal hernia repair History of left shoulder replacement History of tonsillectomy and adenoidectomy History of total left hip replacement (~2010) History of umbilical hernia repair History of vasectomy <Conor Greenberg PA-C - Last Filed: 11/20/22 18:13> Family History Family History: Family History Father Cerebrovascular accident Mother Family history of malignant neoplasm of bone Pancreatic cancer Diabetes mellitus Sibling Diabetes mellitus <Conor Greenberg PA-C - Last Filed: 11/20/22 18:13> Social History Social History: Social History Social History: Surrogate decision maker: Susie Elam, niece who lives in [place]. Code status: Full code. Smoking packs per day: 1 Smoking cigarettes per day: 20.0 Years smoked: 50 Smoking pack-years: 50.00 Smoking status: Former smoker Additional smoking ass
[2022-11-20 09:14] LABS: Alanine Aminotransferase 29 U/L (6-50); Albumin Level 4.4 g/dL (3.5-5.1); Alkaline Phosphatase 71 U/L (38-126); Anion Gap 5 mmol/L (8-16); Aspartate Amino Transferase 35 U/L (17-59); Bilirubin,Total 0.4 mg/dL (0.2-1.3); Blood Urea Nitrogen 25 mg/dL (9-20); Carbon Dioxide 28 mmol/L (22-30); Chloride 107 mmol/L (98-107); Estimated Glomerular Filt Rate > 60; Glucose 116 mg/dL (65-110); Potassium 3.9 mmol/L (3.4-5.0); Sodium 140 mmol/L (137-145)
[2022-11-20 09:23] LABS: INR 0.9; Prothrombin Time 12.9 Seconds (11.1-14.7)
[2022-11-20 09:33] LABS: Alveolar/Arterial O2 Gradient 45.1 mmHg; Base Excess ABG 1.4 mEq/l (+/-2.0); Fractional Inspired Oxygen 21 %; Oxygen Saturation ABG 94.6 % (95.0-100.0); Oxyhemoglobin 93.3 % THb (90.0-100.0); PCO2 ABG 32.4 mmHg (35.0-45.0); PO2 ABG 65.8 mmHg (80.0-100.0); PO2 FiO2 Ratio Arterial Blood 3.13 %; Total Hemoglobin 15.3 g/dL (12.0-18.0); pH ABG 7.488 (7.350-7.450)
[2022-11-20 09:35] LABS: Modified Allen's Test Pass; Site Drawn RIGHT RADIAL
[2022-11-20 09:43] LABS: Creatine Kinase 227 U/L (55-170)
--- NOTE | 2022-11-20 09:55 | PC.NURSE ---
spoke with patient's niece, emergency contact, states she spoke with patient 2 days ago and he was baseline. attempted to call him yesterday and he did not answer. patient was planned to drive to [place] to visit family and tour assisted living facilities. advised to call back for updates
[2022-11-20 09:56] LABS: NT Pro B Type Natriuretic Pept 253 pg/mL (19.9-100); Troponin I < 0.012 ng/mL (0.000-0.034)
[2022-11-20 10:36] LABS: Appearance Urine Clear (Clear); Bilirubin Urine Negative (Negative); Blood Urine Trace-intact (Negative); Color Urine Yellow (Yellow); Glucose Urine UA Negative (Negative); Ketones Urine Negative (Negative); Leukocyte Esterase Ur Negative LEU/UL (Negative); Nitrate Urine Negative (Negative); Protein Urine 2+ mg/dL (Negative); Urobilinogen Urine 0.2 mg/dL (<2.0)
[2022-11-20 10:50] LABS: Add Urine Microscopic? YES
[2022-11-20 11:00] LABS: Lactic Acid Reflex 4.4 mmol/L (0.7-2.0)
[2022-11-20] MEDS: SODIUM CHLORIDE 0.9% IV 1,000 ML 999 ML IV CONT ×2 (11:53→11:54)
[2022-11-20 12:31] LABS: Amphetamine Screen Urine Negative (Negative); Barbiturate Screen Urine Negative (Negative); Benzodiazepines Screen Urine Negative (Negative); Cannabinoid Screen Urine Positive (Negative); Cocaine Screen Urine Negative (Negative); Methadone Screen Urine Negative (Negative); Opiate Screen Urine Negative (Negative); Phencyclidine Screen Urine Negative (Negative)
[2022-11-20 13:31] LABS: Reflex Lactic Acid Yes or No Add Lactic
[2022-11-20 14:09] LABS: Lactic Acid 3.4 mmol/L (0.7-2.0)
--- NOTE | 2022-11-20 14:20 | PM.IMHP ---
H&P: HPI History of Present Illness Date/Time: 11/20/22 14:50 Chief Complaint: Altered mental status. Narrative: This is a 77-year-old male with schizoaffective disorder, depression, anxiety, benign prostatic hyperplasia, and hypercholesterolemia who presented to the emergency department via EMS from a local [facility] for evaluation of altered mental status. He is not able to provide an accurate history as he does not recall some details from this morning and some of the following is obtained via a review of his EMR as well as the EMS report, triage, and ED physician notes. It is noted that the patient was seen in the emergency department on 11/14/2022 with complaints of intermittent dizziness and shortness of breath. Chest CTA and chest x-ray showed no acute abnormalities. He was offered admission for further workup as his SpO2 dropped to 89% with ambulation however he preferred to go home and follow-up as an outpatient. His ears were irrigated due to bilateral cerumen impaction and that seemed to improve his dizziness. According to the patient's niece, she spoke with him 2 days ago and he seemed to be in his usual state of health. They chatted about his plans to drive to [place] tomorrow to visit family members and look for independent living facilities as he intends on moving there. She attempted to phone him yesterday but he did not answer. This morning he remembers getting up and getting ready to go meet his friends for coffee at [facility]. He felt okay when he left the house and when he got to [facility] he reports that he felt ?off? with feelings of shortness of breath. He proceeded to a bruise in sat down and emergency services were contacted. Vital signs were stable on their arrival with a glucose of 107. He was alert but did not speak or follow commands initially. He remembers EMS coming to [facility] but he does not recall much thereafter until getting to the floor. He has been afebrile since arrival. Labs were significant for WBC count of 10.7, BUN 25, lactic acid 4.4, CK, 227. UA showed 2+ protein and trace blood. Urine drug screen was positive for cannabinoids. CTA of the head and neck showed no acute abnormalities or significant stenosis. CTA of the chest was negative for large central pulmonary embolus (limited by motion artifact) or significant pulmonary abnormality. He is being admitted in this setting for further evaluation. At the time my evaluation he is a bit restless and anxious as he is eager to go home so he can get on his weight to [place]. He reports having a couple of similar episodes in the past but he has never been given an explanation. He denies history of stroke, seizure, and transient global amnesia. He has not used illicit substances and denies that he could have taken extra medications. He also denies fever, chills, sweats, headache, focal weakness, paresthesias, difficulty speaking and swallowing, chest pain, pleuritic pain, cough, shortness of breath, nausea, vomiting, diarrhea, and dysuria. Review of Systems Review of Systems: Twelve systems were reviewed and are negative except for as per HPI. [facility] Past Medical History Medical History Benign essential tremor Benign prostatic hyperplasia (Unknown) Congenital renal agenesis, unilateral Depression with anxiety Fibromyalgia Hypercholesterolemia Hyperlipidemia Kidney stone Osteoarthritis Peptic ulcer Pulmonary hypertension Mild pulmonary hypertension noted on echocardiogram in July 2018 with an estimated peak RVSP of 35 to 40 millimeters of mercury. Rhabdomyolysis Hospitalized for such in February 2016, July 2018, September 2019, and September 2020. Schizophrenia (Unknown) Tension headache Surgical History Surgical History History of arthroscopy of right knee (2002) History of bilateral cataract extraction History of inguinal hernia repair History of l
--- NOTE | 2022-11-20 14:35 | ECHO_ITS ---
Patient Info Name: Tammie Harp Age: 77 years : 1945 Gender: Male Ht: 68 in Wt: 191 lbs BSA: 2.06 m2 HR: 98 bpm BP: 144 / 86 mmHg Heart Rhythm: Sinus Rhythm Technical Quality: Fair Exam Date: 11/20/2022 3:45 PM Exam Location: [facility] Pulmonary Exam Room: 331 Patient Status: Outpatient Admit Date: 11/20/2022 Staff Ordering Physician: Nakita Mohan PA-C Insurance Operations Rep: Alyssa Gardner RDCS Attending Provider: Louann Carroll MD Referring Physician: Marques CARTER; Exam Type: CA echo dop color flow w con Study Info Indications - ALTERED MENTAL STATUS ELEVATED BLOOD PRESSURE Complete two-dimensional, color flow and Doppler transthoracic echocardiogram is performed with contrast to opacify the left ventricle and to improve the deliniation of the left ventricle endocardial borders. Contrast/Agitated Saline Contrast/Ag. Saline: Definity Amount: 2.00 ml Administered By: Alyssa Gardner [facility] Existing IV Access: Yes IV Access Condition: patent with no signs of infiltration Summary 1. Left ventricular chamber dimension is normal. 2. Definity contrast administered improved wall motion interpretation. 3. Left ventricular systolic function is normal, estimated at 65-70%. 4. There is mild concentric increased left ventricular wall thickness. 5. The left ventricular diastolic function is grade I diastolic dysfunction. 6. E/e' 10 is mildly elevated. 7. The mitral valve has moderately calcified annulus. 8. No pulmonary hypertension, estimated pulmonary arterial systolic pressure is 33 mmHg. Left Ventricle E/e' 10 is mildly elevated. Definity contrast administered improved wall motion interpretation. Left ventricular chamber dimension is normal. Left ventricular systolic function is normal, estimated at 65-70%. There is mild concentric increased left ventricular wall thickness. The left ventricular diastolic function is grade I diastolic dysfunction. Right Ventricle Right ventricular chamber dimension is normal. Right ventricular systolic function is normal. Left Atria Left atrial chamber dimension is normal. Right Atria Right atrial chamber dimension is normal. Aortic Valve The aortic valve is trileaflet. There is no aortic valve stenosis. There is no aortic valve regurgitation. Pulmonic Valve There is no pulmonic regurgitation. Mitral Valve The mitral valve has moderately calcified annulus. There is no mitral valve stenosis. There is no mitral valve regurgitation. Tricuspid Valve There is no tricuspid valve regurgitation. No pulmonary hypertension, estimated pulmonary arterial systolic pressure is 33 mmHg. Pericardium/Pleural There is no pericardial effusion. Inferior Vena Cava Normal inferior vena cava with >50% collapse upon inspiration consistent with normal right atrial pressure, 5 mmHg. Aorta The aortic root size at the sinus of Valsalva is normal. Left Ventricular Outflow Tract Name Value Normal LVOT 2D LVOT Diameter 2.08 cm LVOT Doppler LVOT Peak Gradient 6 mmHg LVOT Mean Gradient 3 mmHg LVOT VTI 23.39 cm LVOT V
[2022-11-20] MEDS: LACTATED RINGERS 1,000 ML 999 ML IV CONT (15:35)
[2022-11-20] MEDS: PERFLUTREN LIPID MICROSPHERES 1.5 ML VIAL DILUTED TO 10 ML TOTAL VOLUME IV PUSH (16:10)
[2022-11-20 17:23] LABS: Ammonia < 9 umol/L (9-30)
[2022-11-20 17:24] LABS: Lactic Acid Reflex 1.8 mmol/L (0.7-2.0)
[2022-11-20 17:26] LABS: CRP < 0.5 mg/dL (<1.0); Magnesium 2.1 mg/dL (1.6-2.3)
[2022-11-21] VITALS: PULSE 81
[2022-11-21] MEDS: TEMAZEPAM (*CRX) 15 MG CAPSULE 30 MG PO ×2 (00:37→20:17)
[2022-11-21] MEDS: OLANZapine 5 MG TABLET 20 MG PO ×2 (00:37→20:17)
[2022-11-21] MEDS: FINASTERIDE 5 MG TABLET PO ×2 (00:37→20:17)
[2022-11-21 04:00] VITALS: PULSE 70
[2022-11-21 06:00] VITALS: BP 137/71; PULSE 73; RESP 16; TEMP 36.2; O2SAT 96
[2022-11-21 06:29] LABS: Hemoglobin 13.4 g/dL (14.0-18.0); Mean Corpuscular HGB Conc 32.7 g/dl (32-36); Mean Corpuscular Hemoglobin 30.6 pg (26-34); Mean Corpuscular Volume 93.6 fl (80-100); Mean Platelet Volume 10.2 fl (7.4-10.4); Platelet Count Result 183 k/mm3 (150-375); Red Blood Count 4.38 M/mm3 (4.6-6.20); Red Cell Distribution Width 13.7 % (11.5-14.5); White Blood Count 8.5 K/mm3 (4.5-10.0)
[2022-11-21] MEDS: ACETAMINOPHEN 325 MG TABLET 650 MG PO (06:36)
[2022-11-21 06:45] LABS: Alanine Aminotransferase 24 U/L (6-50); Albumin Level 3.5 g/dL (3.5-5.1); Alkaline Phosphatase 56 U/L (38-126); Anion Gap 5 mmol/L (8-16); Aspartate Amino Transferase 32 U/L (17-59); Bilirubin,Total 0.5 mg/dL (0.2-1.3); Blood Urea Nitrogen 15 mg/dL (9-20); Calcium 8.4 mg/dL (8.4-10.2); Carbon Dioxide 26 mmol/L (22-30); Chloride 108 mmol/L (98-107); Creatine Kinase 360 U/L (55-170); Estimated CRCL calculation 58 ml/min; Estimated Glomerular Filt Rate > 60; Glucose 91 mg/dL (65-110); Magnesium 2.2 mg/dL (1.6-2.3); Potassium 3.6 mmol/L (3.4-5.0); Sodium 139 mmol/L (137-145)
[2022-11-21 08:00] VITALS: PULSE 74
[2022-11-21] MEDS: OMEGA 3 POLYUNSAT FATTY ACIDS 1 GM CAP PO (08:15)
[2022-11-21] MEDS: polyethylene glycoL 3350 17 GM POWD.PACK PO (08:15)
[2022-11-21] MEDS: DOCUSATE SODIUM 100 MG CAPSULE PO ×2 (08:15→20:17)
--- NOTE | 2022-11-21 10:28 | PC.NURSE ---
Spoke with Dr. Carroll regarding my conversation with patients niece. She states patient is going to move to [place], to be near herself and her mother, in a NH. She is concerned about his ability to drive there given his previous two episodes of AMS and SOB. Per niece patient drinks a lot of milk, probably a half gallon a day . MD aware. Patient also tested positive for Cannibis, aware, but not sure niece is aware. Will discuss with patient if he has consuming before the previous two episode that brought him to the ED.
--- NOTE | 2022-11-21 11:50 | WPDNEURCNPN ---
Assessment and Plan Assessment and plan (1) Altered mental status: Code(s): R41.82 - Altered mental status, unspecified Status: Acute (2) Lactic acidosis: Code(s): E87.20 - Acidosis, unspecified Status: Acute (3) Psychiatric illness: Code(s): F99 - Mental disorder, not otherwise specified Status: Acute Plan Tammie Harp is a 77 year old male with a history of schizophrenia, anxiety, fibromyalgia, HLD, essential tremor, depression presenting due to altered mental status and shortness of breath. Etiology is unclear -- could be panic attack. Will obtain neuroimaging to rule out central causes such as stroke and seizure. Patient appears to be back to baseline. - MRI brain with and without contrast - Routine EEG - We discussed that given the episode of unresponsiveness, he should not be driving for at least the next six months Consult date: 11/21/22 Reason for consult: Altered mental status HPI: Tammie Harp is a 77 year old male with a history of schizophrenia, anxiety, fibromyalgia, HLD, essential tremor, depression presenting due to altered mental status. Patient was recently evaluated in the emergency department on 11/14 for dizziness and shortness of breath. He was offered admission as his SpO2 dropped to 89%, however work up was unrevealing and he elected to go home. Patient had been well over the past few days, but on day of presentation he went to go meet his friends for coffee at [employer] -- he felt fine when he left the house. Once he got to [facility] he felt off with feelings of shortness of breath. He sat down and EMS was called. He was alert but would not answer questions or follow commands initially. He answered questions with nodding his head. He was taken to [place] [facility] where his blood pressure was initially in the 140-170s systolic. Labwork was unrevealing except for elevated lactic acid of 4.4. CT head, CTA brain/carotid were negative as well. UDS was positive for cannabinoids. Patient reports having previous episodes similar to this but was never given a diagnosis. B12, TSH, ammonia were checked during this admission and normal. MRI brain has been ordered and is pending. Patient reports that he is back to his baseline. He reports that he does not remember the EMS ride to the hospital but remembers everything else that happened. He used marijuana for the first time the day prior to admission, but did not use any on the day of admission. He reports that he did feel anxious prior to the episode for no apparent reason. When he had a similar episode a week ago, he was anxious at that time as well. Patient lives along and he does drive. Review of Systems Constitutional: Constitutional: Denies chills, Denies fever(s) and Denies weight loss Eyes: Eyes: Denies diplopia and Denies loss of vision ENT: Denies dizziness, Denies hearing loss and Denies tinnitus Cardiovascular: Cardiovascular: Denies chest pain, Denies syncope and Denies dyspnea Respiratory: Respiratory: Denies cough, Denies dyspnea and Denies wheezing Gastrointestinal: Gastrointestinal: Denies abdominal pain, Denies change in bowel habits and Denies vomiting Genitourinary: Genitourinary: Denies urinary incontinence Musculoskeletal: Musculoskeletal: Denies arthralgias and Denies joint swelling Integumentary/Breasts: Skin/Breast: Denies new lesions and Denies rash Neurologic: Reports as per HPI, Reports confusion, Denies dizziness, Denies syncope and Denies loss of vision Psychiatric: Psychiatric: Reports anxiety and Denies depression Endocrine: Endocrine: Denies cold intolerance and Denies heat intolerance Hematologic/Lymphatic: Hematologic/Lymphatic: Denies easy bleeding and Denies easy bruising Allergic/Immunologic: Allergic/Immunologic: Denies no additional allergic/immunologic complaints and Denies wheezing PMFSH Past Medical History Medical History Benign
[2022-11-21] MEDS: DULoxetine HCL 60 MG CAPSULE.DR PO (12:07)
[2022-11-21] MEDS: CITALOPRAM HYDROBROMIDE 20 MG TABLET PO (12:07)
--- NOTE | 2022-11-21 13:49 | WPDPN ---
Progress Note: A&P Assessment and Plan (1) Altered mental status: Code(s): R41.82 - Altered mental status, unspecified Status: Acute (2) Lactic acidosis: Code(s): E87.20 - Acidosis, unspecified Status: Acute (3) Elevated blood pressure reading: Code(s): R03.0 - Elevated blood-pressure reading, without diagnosis of hypertension Status: Acute (4) Elevated CK: Code(s): R74.8 - Abnormal levels of other serum enzymes Status: Acute (5) Benign prostatic hyperplasia: Onset Date: Unknown Code(s): N40.0 - Benign prostatic hyperplasia without lower urinary tract symptoms Status: Acute (6) Psychiatric illness: Code(s): F99 - Mental disorder, not otherwise specified Status: Acute Plan The patient presented to the emergency department via EMS from a local [facility] for evaluation of altered mental status as per HPI. Labs, imaging, EKG, and all reports were personally reviewed. Last known normal is unknown however the patient reports that he felt okay this morning and remembers getting ready to go meet his friends for coffee at [facility]; niece spoke with him on the phone 2 days ago. It is unclear what caused this episode. Differential diagnosis includes stroke (aphasia and confusion are the only neurologic changes which are obvious at this time and CT of the head and neck showed no acute findings), meningitis (negative Kernig and Brudzinski), encephalitis, other infection (less likely is white count is barely elevated he is afebrile with normal UA), drug-induced (could he have accidentally overdosed on his home medications?), secondary to psychiatric conditions (has a history of schizophrenia, depression, and anxiety), transient global amnesia, versus other. Monitor on telemetry with q.4 hour neurologic checks. Brain MRI ordered. Neurology consulted. Check TSH, B12, and ammonia levels. Blood pressures have been a bit elevated but not significantly so. He appears anxious which could be a contributing factor. Historically he does not have high blood pressure; continue to trend for now. CK is mildly elevated and will be monitored. Lactic acid was was elevated at 4.4 though again there are no obvious signs to suggest overt infection at this time. Blood pressures have been stable and his extremities are well perfused. His home medications will be reviewed to see if any of these may be a contributing factor. He was hydrated in the ED and lactic acid level be monitored. Blood cultures pending. No indication for antibiotics at this time. His home medications will be reviewed and resumed as appropriate. 11/21/2022 interval history: 77 y/o male was brought to ER as he was found confused and disoriented at [facility], patient is stable this is the 2nd or 3rd episode, does not know exactly what happened however patient does smoke marijuana with history of schizophrenia, etiology uncertain seen by Neurology recommended MRI of the brain and an EEG to further evaluate, will have a PT OT evaluate the patient and further recommendation to follow. Subjective Date/time seen: 11/21/22 13:49 Interval history: Altered mental status. HPI-Narrative: This is a 77-year-old male with schizoaffective disorder, depression, anxiety, benign prostatic hyperplasia, and hypercholesterolemia who presented to the emergency department via EMS from a local [facility] for evaluation of altered mental status. He is not able to provide an accurate history as he does not recall some details from this morning and some of the following is obtained via a review of his EMR as well as the EMS report, triage, and ED physician notes. It is noted that the patient was seen in the emergency department on 11/14/2022 with complaints of intermittent dizziness and shortness of breath. Chest CTA and chest x-ray showed no acute abnormalities. He was offered admission for further workup as his SpO2 dropped to 89% with ambulation jose maria
[2022-11-21 14:00] VITALS: BP 100/63; PULSE 77; RESP 20; TEMP 36.8; O2SAT 97
[2022-11-21 21:58] VITALS: BP 120/67; PULSE 77; RESP 20; TEMP 36.1; O2SAT 95
[2022-11-22 06:00] VITALS: BP 128/75; PULSE 75; RESP 16; TEMP 35.7; O2SAT 94
--- NOTE | 2022-11-22 06:36 | PC.NURSE ---
Off floor to MRI.
--- NOTE | 2022-11-22 08:51 | P.NEURO_ITS ---
Neurology EEG Report General Information Date of Study: 11/22/22 TEST eeg
--- NOTE | 2022-11-22 08:53 | P.NEURO_ITS ---
Neurology EEG Report General Information Date of Study: 11/22/22 TEST eeg DIAGNOSIS Episodes of unresponsiveness CONDITION OF RECORDING awake drowsy and sleep EEG NUMBER [id number] CLINICAL HISTORY patient was brought in to the hospital with altered mental status and feels like he is back to baseline now. EEG DESCRIPTION Basic resting occipital frequency consists of low-voltage 8 to 10 hertz per 2nd alpha admixed with low-voltage 15 to 18 hertz per 2nd beta activity. Low- voltage beta activity seen diffusely admixed with waxing and waning posterior alpha rhythm during drowsiness. By hemispheric symmetrical sleep activity seen during sleep. Hyperventilation not done. Photic stimulation not done. Non paroxysmal. Nonfocal. Nonlateralizing. IMPRESSION Normal record during wakefulness drowsiness and sleep.
[2022-11-22] MEDS: polyethylene glycoL 3350 17 GM POWD.PACK PO (09:05)
[2022-11-22] MEDS: ACETAMINOPHEN 325 MG TABLET 650 MG PO (09:06)
[2022-11-22] MEDS: DULoxetine HCL 60 MG CAPSULE.DR PO (09:07)
[2022-11-22] MEDS: DOCUSATE SODIUM 100 MG CAPSULE PO (09:07)
[2022-11-22] MEDS: OMEGA 3 POLYUNSAT FATTY ACIDS 1 GM CAP PO (09:07)
[2022-11-22] MEDS: CITALOPRAM HYDROBROMIDE 20 MG TABLET PO (09:07)
--- NOTE | 2022-11-22 11:12 | PM.DS ---
DS: Admitting Diagnosis Discharge Date 11/22/2022 Admitting Diagnosis Altered mental status DS: Discharge Diagnosis Discharge Diagnosis (1) Altered mental status: Code(s): R41.82 - Altered mental status, unspecified Status: Acute (2) Lactic acidosis: Code(s): E87.20 - Acidosis, unspecified Status: Acute (3) Elevated blood pressure reading: Code(s): R03.0 - Elevated blood-pressure reading, without diagnosis of hypertension Status: Acute (4) Elevated CK: Code(s): R74.8 - Abnormal levels of other serum enzymes Status: Acute (5) Benign prostatic hyperplasia: Onset Date: Unknown Code(s): N40.0 - Benign prostatic hyperplasia without lower urinary tract symptoms Status: Acute (6) Psychiatric illness: Code(s): F99 - Mental disorder, not otherwise specified Status: Acute Plan The patient presented to the emergency department via EMS from a local [facility] for evaluation of altered mental status as per HPI. Labs, imaging, EKG, and all reports were personally reviewed. Last known normal is unknown however the patient reports that he felt okay this morning and remembers getting ready to go meet his friends for coffee at [facility]; niece spoke with him on the phone 2 days ago. It is unclear what caused this episode. Differential diagnosis includes stroke (aphasia and confusion are the only neurologic changes which are obvious at this time and CT of the head and neck showed no acute findings), meningitis (negative Kernig and Brudzinski), encephalitis, other infection (less likely is white count is barely elevated he is afebrile with normal UA), drug-induced (could he have accidentally overdosed on his home medications?), secondary to psychiatric conditions (has a history of schizophrenia, depression, and anxiety), transient global amnesia, versus other. Monitor on telemetry with q.4 hour neurologic checks. Brain MRI ordered. Neurology consulted. Check TSH, B12, and ammonia levels. Blood pressures have been a bit elevated but not significantly so. He appears anxious which could be a contributing factor. Historically he does not have high blood pressure; continue to trend for now. CK is mildly elevated and will be monitored. Lactic acid was was elevated at 4.4 though again there are no obvious signs to suggest overt infection at this time. Blood pressures have been stable and his extremities are well perfused. His home medications will be reviewed to see if any of these may be a contributing factor. He was hydrated in the ED and lactic acid level be monitored. Blood cultures pending. No indication for antibiotics at this time. His home medications will be reviewed and resumed as appropriate. 11/21/2022 interval history: 77 y/o male was brought to ER as he was found confused and disoriented at [facility], patient is stable this is the 2nd or 3rd episode, does not know exactly what happened however patient does smoke marijuana with history of schizophrenia, etiology uncertain seen by Neurology recommended MRI of the brain and an EEG to further evaluate, will have a PT OT evaluate the patient and further recommendation to follow. DS: Summary Hospital Course Reason for hospitalization: Altered mental status. Narrative: This is a 77-year-old male with schizoaffective disorder, depression, anxiety, benign prostatic hyperplasia, and hypercholesterolemia who presented to the emergency department via EMS from a local [facility] for evaluation of altered mental status. He is not able to provide an accurate history as he does not recall some details from this morning and some of the following is obtained via a review of his EMR as well as the EMS report, triage, and ED physician notes. It is noted that the patient was seen in the emergency department on 11/14/2022 with complaints of intermittent dizziness and shortness of breath. Chest CTA and chest x-ray showed no acute abnormalities
[2022-11-23] MEDS: PERFLUTREN LIPID MICROSPHERES 1.5 ML VIAL DILUTED TO 10 ML TOTAL VOLUME IV PUSH (16:10)
== END 2022-11-22 13:30 | disposition home or self-care (01) ==
LOC: ANHED 12:44 → ANH3MEDSUR 13:10
PROVIDERS: Emergency Medicine; Physician Assistant; Admitting Provider Family Medicine; Emergency Provider Physician Assistant; PCP Student in an Organized Health Care Education/Training Program; Visit Provider Family Medicine
DX: R41.82 Altered mental status, unspecified (principal); E87.20 Acidosis, unspecified; R03.0 Elevated blood-pressure reading, without diagnosis of hypertension; R74.8 Abnormal levels of other serum enzymes; N40.0 Benign prostatic hyperplasia without lower urinary tract symptoms; F20.9 Schizophrenia, unspecified; M62.82 Rhabdomyolysis; G25.0 Essential tremor; S22.060A Wedge compression fracture of T7-T8 vertebra, initial encounter for closed fracture; S22.070A Wedge compression fracture of T9-T10 vertebra, initial encounter for closed fracture; F48.1 Depersonalization-derealization syndrome; E78.00 Pure hypercholesterolemia, unspecified; I51.89 Other ill-defined heart diseases; M19.90 Unspecified osteoarthritis, unspecified site; R47.01 Aphasia; I45.10 Unspecified right bundle-branch block; R06.82 Tachypnea, not elsewhere classified; R94.31 Abnormal electrocardiogram [ECG] [EKG]; I45.2 Bifascicular block; I27.20 Pulmonary hypertension, unspecified; G44.209 Tension-type headache, unspecified, not intractable; Z79.1 Long term (current) use of non-steroidal anti-inflammatories (NSAID); Z79.891 Long term (current) use of opiate analgesic; Z79.899 Other long term (current) drug therapy; F17.210 Nicotine dependence, cigarettes, uncomplicated; F10.90 Alcohol use, unspecified, uncomplicated; R90.82 White matter disease, unspecified
CPT/HCPCS: 36415; 36600; 70496; 70498; 70553; 71275; 80053; 80307; 81001; 82140; 82550; 82607; 82805; 83605; 83735; 83880; 84425; 84443; 84484; 85025; 85027; 85610; 85730; 86140; 87040; 93005; 95816; 96361; 96374; 99285; A9270; A9577; C8929; G0378; J7030; J7120; Q9957; Q9967